=== PATIENT | male | born 1960 | race Caucasian/White ===

== ENCOUNTER 2022-04-10 10:30 | Emergency (ER) | payer OTHER ==
--- OUTSIDE RECORDS SUMMARY | 2022-04-10 10:42 | XMS REPORT | Continuity of Care Document ---
:[address] [facility] t Address [address] [place] [address] Care Team Providers Name Role Phone OPAL EGAN Primary Care Physician Unavailable Opal Egan Attending Clinician Unavailable GABRIEL ANNE Attending Clinician Unavailable SUZANNA BAZZI Attending Clinician Unavailable SCOTTIE TOLBERT Attending Clinician Unavailable MAGUI DURAND Attending Clinician Unavailable Magui Durand DO Attending Clinician Christiano Rai NP Attending Clinician [address] [place] [address] Ct Room Attending Clinician Unavailable CHRISTIANO RAI Attending Clinician Unavailable DR CIARA CARTER Attending Clinician Unavailable Rigoberto Arredondo MA Attending Clinician Unavailable Doctor Unassigned, [place] Attending Clinician Unavailable Gabriel Anne MD Attending Clinician Lakeisha Valenzuela Attending Clinician TIBURCIO DAILEY Attending Clinician Unavailable Tiburcio Dailey MD Attending Clinician Christie Castaneda Attending Clinician Pcp, Patient Does Not Have A Attending Clinician [phone] Stewart BURGOS, Lucio Hyde Attending Clinician Tima MENDOZA, Bella Attending Clinician Unavailable Leo DUVALP, Chaparro F Attending Clinician Jean Claude OBIEE OBIA SOLUTION ARCHITECT, Monica G Attending Clinician Evaristo Norton MD Attending Clinician Matthew Raya MD Attending Clinician MATTHEW RAYA Attending Clinician Unavailable Max BURGOS, Andrew Attending Clinician Augustin BURGOS, Rogelio Gómez Attending Clinician SANDEEP LOPEZ JR Attending Clinician Unavailable Sandeep Lopez MD Attending Clinician DR DON SYED Attending Clinician Unavailable GABRIEL ANNE Admitting Clinician Unavailable SUZANNA BAZZI Admitting Clinician Unavailable SCOTTIE TOLBERT Admitting Clinician Unavailable DR CIARA CARTER Admitting Clinician Unavailable Matthew Raya MD Admitting Clinician MATTHEW RAYA Admitting Clinician Unavailable SANDEEP LOPEZ JR Admitting Clinician Unavailable Sandeep Lopez MD Admitting Clinician DR DON SYED Admitting Clinician Unavailable Payers Payer Name Policy Type Policy Number Effective Date Expiration Date S ource [facility] [id number] 2020 FROM [place] 00:00:00 [facility] [id number] 2020 [place] 00:00:00 [facility] [id number] 2021 HEALTHCARE 00:00:00 [place] [id number] 2021 [facility] 00:00:00 [facility] - C HI O [facility] [id number] 2019 2019 00:00:00 00:00:00 Problems Condition Condition Condition Status Onset Resolution Last Treating Co mments Source Name Details Category Date Date Treatment Clinician Date 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 00:00: Medica l s/p TEVAR s/p TEVAR 00 Cent er with 34x20 with 34x20 GoreTAG, GoreTAG, 34x15 34x15 GoreTAG GoreTAG via R HEAD TURBINE OPERATOR via R HEAD TURBINE OPERATOR 22Fr 22Fr sheath sheath Hypertensi Hypertensi Disease Active 2020-[address] [facility] 0 [facility] HCV Liver HCV Liver Disease Active 2020-[address] [facility] cirrhosis cirrhosis 0- [facility] 00:[facility]: [facility] Center Ex-smoker Ex-smoker Disease Active 2020-[address] [facility] year 35 year 0- [facility] smoking hx smoking hx 00:00: Me dical 00 Center Nephrolith Nephrolith Disease Active 2020-[address] iasis iasis 0- [facility] Aortic Aortic Disease Active [facility] dissection dissection 5- [facility] 00:00: Center Ureteral Ureteral Disease Active Unive rs stone with stone with 2-17 it y of hydronephr hydronephr 00:[place]: [place] osis osis 00 Medical Branch Obesity Obesity Disease Active Univers (BMI (BMI 2-17 ity of 30-39.9) 30-39.9) 00:00: [place] [facility] Ureteral Ureteral Disease Active Unive rs stone with stone with 2-17 it y of hydronephr hydronephr 00:00: [place] osis osis Medical Branch Aortic Aortic Disease Active Univers dissection dissection 4-18 it y of distal to distal to 00:[place] 00 Medical subclavian subclavian Br anch Abnormal Abnormal Disease Active Unive rs serum serum 4-18 ity of level of level of 00:00: [place] lipase lipase 00 Medical Branch Chest pain Chest pain Disease Active 2019-0 U jhoners 4-17 ity of 00:00: [place] 00 Medical Branch Uncontroll Uncontroll Disease Active 2019-0 U gayatri ed ed 4-17 ity of hypertensi hypertensi 00:00: [place] on on Medical [place] Dyslipidem Dyslipidem Disease Active 2019-0 U jhoners ia ia 4-17 ity of 00:00: [place] 00 Medical Branch LEVINE LEVINE Disease Active Univers (dyspnea (dyspnea 4-17 ity of on on 00:00: [place] exertion) exertion) 00 [facility] fox Branch Acute Acute Disease Active Univers dissection dissection 4-02 it y of of of 00:00: [place] thoracic thoracic 00 Medica l aorta aorta Branch [id number] Mixed Problem Common hyperlipid Spirit emia - [facility] [id number] Hypertensi Problem Com mon ve heart Spirit disease - [facility] without heart [facility] failure Medical Center [id number] Chronic Problem Commo n hepatitis Spirit C without - [facility] hepatic [facility] [id number] Thrombocyt Problem Co mmon openia Spirit - [facility] Allergies, Adverse Reactions, Alerts Allergy Allergy Status Severity Reaction(s) Onset Inactive Treating Comm ents Source Name Type Date Date Clinician No Known DA Active Unknown [place] Allergie - Medical 00:00: [place] 00 NO KNOWN Allergy [facility] Drug Active Univers ALLERGIE Class ity of S [facility] Family History Family Member Diagnosis Comments Start Date Stop Date Source Natural brother Hypertension [facility] Natural father Prostate cancer [facility] Natural mother Hypertension [facility] Social History Social Habit Start Date Stop Date Quantity Comments Source History SDOH [facility] Alcohol Std Drinks Medica l Center History SDOH [facility] Alcohol Binge Medical [address] History SDOH [facility] Alcohol Comment Medical C enter History of Tobacco Current Smoker Co mmon Spirit - Use [facility] Exposure to 2022-03-27 2022-04-06 Not sure University of SARS-CoV-2 (event) 00:00:00 11:56:00 [facility] Alcohol intake 2021-03-17 2021-03-[address] [facility] 00:00:00 00:00:00 non-drinker Medical Eris acuna (finding) Tobacco Comment 2021-01-31 2021-01-31 [facility] 00:[facility] 00:00:00 that he is ready Medical Center to quit smoking .Down to 1-3 cig/day Cigarettes smoked 2020-11-29 2020-11-[address] [facility] current (pack per 00:00:00 00:00:00 Medical Center day) - Reported Tobacco use and 2020-11-29 2020-11-[address] [facility] kes exposure 00:00:00 00:00:00 Medical Center History [facility] 2020-10-16 2020-10-[address] [facility] Alcohol Frequency 00:00:00 00:00:00 [facility] Center History [facility] Food 2020-08-04 2020-08-04 1 Univers ity of Worry 00:00:00 00:00:00 [facility] History SDID Food 2020-08-04 2020-08-04 1 Univers ity of Scarcity 00:00:00 00:00:00 [facility] History [facility] 2020-08-04 2020-08-04 2 University o f Transport Med 00:00:00 00:00:00 [place] Medic al Branch History [facility] 2020-08-04 2020-08-04 2 University o f Transport Non-Med 00:00:00 00:00:00 [facility] Sex Assigned At [birth year] NINFA Odell kes 00:00:00 00:00:00 [facility] Center Smoking Status Start Date Stop Date Source Unknown if ever smoked [facility] y [place] [facility] Former Smoker 2021-11-14 00:00:00 2021-11-14 00:00:00 Common S pirit - [facility] Medical Ce nter Current every day 2020-11-29 00:00:00 [facility] smoker Center Medications Ordered Filled Start Stop Current Ordering Indication Dosage Frequency Signature Comments Components Source Medication Medication Date Date Medication? Clinician (SIG) Name Name tarah 2021-06- No 10mL 10 mL, Uni vers ifenesin 0-21 10-21 Oral, ity of (ROBITUSSIN 17:15: 17:18 ONCE, 1 [place] AC) 10-100 00 :00 dose, On Medic al mg/5 mL Fri Branch oral 04/06/22 solution 10 at 1215, mL ERIS codeine-gua 2021-06- Yes [id number] 5mL Take 5 mL Univers ifenesin 0-21 10-29 by mouth ity of 10-100 mg/5 00:00: 04:59 every 6 [place] mL oral 00 :00 (six) Medical solution hours as Branch needed for Cough for up to 7 days. Indication s: acute pain Clobetasol Clobetasol 2021- No 1{appli BID Clobetasol Propionate Propionate 02-26 cation} Propionate 0.05 % 0.05 % 00:00: 00:00 0.05 % 00 :00 aspirin 81 2020-06 Yes 81mg QD Take [address] MG EC 0-04 by mouth [facility] tablet 16:13: daily. Medical 03 [place] multivitami 2020-06 Yes 1{tbl} QD Take [address] n per 0-04 tablet by [facility] tablet 16:13: mouth Medical 03 daily. [place] tamsulosin 2020- No [id number] .4mg Take 1 Univers 0.4 mg 24 09-15 capsule by ity of hr capsule 00:00: 04:59 mouth [place] 00 :00 daily for Medical 30 days. [place] tamsulosin 2020- No [id number] .4mg Take 1 Univers 0.4 mg 24 09-15 capsule by ity of hr capsule 00:00: 04:59 mouth [place] 00 :00 daily for Medical 30 days. [place] tamsulosin 2020- No [id number] .4mg Take 1 Univers 0.4 mg 24 09-15 capsule by ity of hr capsule 00:00: 04:59 mouth [place] 00 :00 daily for Medical 30 days. [place] tamsulosin 2020- No [id number] .4mg Take 1 Univers 0.4 mg 24 09-15 capsule by ity of hr capsule 00:00: 04:59 mouth [place] 00 :00 daily for Medical 30 days. [place] tamsulosin 2020- No [id number] .4mg Take 1 Univers 0.4 mg 24 09-15 capsule by ity of hr capsule 00:00: 04:59 mouth [place] 00 :00 daily for Medical 30 days. [place] tamsulosin 2020- No [id number] .4mg Take 1 Univers 0.4 mg 24 09-15 capsule by ity of hr capsule 00:00: 04:59 mouth [place] 00 :00 daily for Medical 30 days. Branch tamsulosin No [id number] .4mg Take 1 Univers 0.4 mg 24 09-15 capsule by ity of hr capsule 00:00: 04:59 mouth [place] 00 :00 daily for Medical 30 days. [place] oxybutynin No [id number] 5mg Take 1 Univers XL 5 mg 24 09-1516 tablet by ity of hr tablet 00:00: 04:59 mouth [place] 00 :00 daily for Medical 14 days. [place] oxybutynin No [id number] 5mg Take 1 Univers XL 5 mg 24 09-1516 tablet by ity of hr tablet 00:00: 04:59 mouth [place] 00 :00 daily for Medical 14 days. [place] oxybutynin No [id number] 5mg Take 1 Univers XL 5 mg 24 09-15 tablet by ity of hr tablet 00:00: 04:59 mouth [place] 00 :00 daily for Medical 14 days. [place] oxybutynin No [id number] 5mg Take 1 Univers XL 5 mg 24 09-1516 tablet by ity of hr tablet 00:00: 04:59 mouth [place] 00 :00 daily for Medical 14 days. [place] oxybutynin No [id number] 5mg Take 1 Univers XL 5 mg 24 09-1516 tablet by ity of hr tablet 00:00: 04:59 mouth [place] 00 :00 daily for Medical 14 days. [place] oxybutynin No [id number] 5mg Take 1 Univers XL 5 mg 09-1516 tablet by ity of hr tablet 00:00: 04:59 mouth [place] 00 :00 daily for Medical 14 days. [place] ketorolac No 30mg 30 mg, Unive rs (TORADOL) 09-07 Slow IV ity of injection 20:30: 19:58 Push, [place] 30 mg 00 :00 ONCE, 1 Medical dose, Sat [place] 09/07/20 at 1530, ERIS
Fa culty member approving Restricted medication : EMERGENCY ROOM, NaCl 0.9% 2021-0 2021- No 1000mL at 999 Uni vers (NS) bolus 3-24 03-24 mL/hr, ity of infusion 19:30: 21:41 1,000 mL, [place] as 1,000 mL 00 :00 IV Medical Infusion, Branch ONCE, 1 dose, Sat09/07/20 at 1430, ERIS labetaloL 2020-0 Yes [id number] 200mg Take 1 Univers 200 mg 3-24 tablet by ity of tablet 00:00: mouth [place] 00 every 12 Medical (twelve) Branch hours. labetaloL 2020-0 Yes [id number] 200mg Take 1 Univers 200 mg 3-24 tablet by ity of tablet 00:00: mouth [place] 00 every 12 Medical (twelve) Branch hours. labetaloL 2020-0 Yes [id number] 200mg Take 1 Univers 200 mg 3-24 tablet by ity of tablet 00:00: mouth [place] 00 every 12 Medical (twelve) Branch hours. labetaloL 2020-0 Yes [id number] 200mg Take 1 Univers 200 mg 3-24 tablet by ity of tablet 00:00: mouth [place] 00 every 12 Medical (twelve) Branch hours. labetaloL 2020-0 Yes [id number] 200mg Take 1 Univers 200 mg 3-24 tablet by ity of tablet 00:00: mouth [place] 00 every 12 Medical (twelve) Branch hours. labetaloL 2020-0 Yes [id number] 200mg Take 1 Univers 200 mg 3-24 tablet by ity of tablet 00:00: mouth [place] 00 every 12 Medical (twelve) Branch hours. labetaloL 2020-0 Yes [id number] 200mg Take 1 Univers 200 mg 3-24 tablet by ity of tablet 00:00: mouth [place] 00 every 12 Medical (twelve) Branch hours. labetaloL 2020-0 Yes [id number] 200mg Take 1 Univers 200 mg 3-24 tablet by ity of tablet 00:00: mouth [place] 00 every 12 Medical (twelve) Branch hours. labetaloL 2020-0 Yes [id number] 200mg Take 1 Univers 200 mg 3-24 tablet by ity of tablet 00:00: mouth [place] 00 every 12 Medical (twelve) Branch hours. acetaminoph 2020-0 2020- No [id number] 1{tbl} Take 1 U nivers en-codeine 3-24 04- tablet by ity of 300-30 mg 00:00: 04:59 mouth [place] tablet 00 :00 every 6 Medical (six) Branch hours as needed for Pain (scale 7-10) for up to 7 days. Indication s: acute pain ketorolac 2021-0 2021- No [id number] 10mg Take 1 Univers 10 mg 3-24 03-30 tablet by ity of tablet 00:00: 04:59 mouth [place] 00 :00 every 6 Medical (six) Branch hours as needed for Pain (scale 4-6) for up to 5 days. oxybutynin 2021-0 Yes 5mg Take 1 Unive rs chloride 5 3-09 tablet by ity of mg tablet 00:00: mouth (three) Medical times Branch daily as needed for Bladder spasms. oxybutynin 2021-0 Yes 5mg Take 1 Unive rs chloride 5 3-09 tablet by ity of mg tablet 00:00: mouth (three) Medical times Branch daily as needed for Bladder spasms. oxybutynin 2021-0 Yes 5mg Take 1 Unive rs chloride 5 3-09 tablet by ity of mg tablet 00:00: mouth (three) Medical times Branch daily as needed for Bladder spasms. oxybutynin 2021-0 Yes 5mg Take 1 Unive rs chloride 5 3-09 tablet by ity of mg tablet 00:00: mouth (three) Medical times Branch daily as needed for Bladder spasms. oxybutynin 2021-0 Yes 5mg Take 1 Unive rs chloride 5 3-09 tablet by ity of mg tablet 00:00: mouth (three) Medical times Branch daily as needed for Bladder spasms. oxybutynin 2021-0 Yes 5mg Take 1 Unive rs chloride 5 3-09 tablet by ity of mg tablet 00:00: mouth (three) Medical times Branch daily as needed for Bladder spasms. oxybutynin 2021-0 Yes 5mg Take 1 Unive rs chloride 5 3-09 tablet by ity of mg tablet 00:00: mouth (three) Medical times Branch daily as needed for Bladder spasms. oxybutynin 2021-0 Yes 5mg Take 1 Unive rs chloride 5 3-09 tablet by ity of mg tablet 00:00: mouth (three) Medical times Branch daily as needed for Bladder spasms. oxybutynin 2021-0 Yes 5mg Take 1 Unive rs chloride 5 3-09 tablet by ity of mg tablet 00:00: mouth 3 (three) Medical times Branch daily as needed for Bladder spasms. oxybutynin 2021-0 Yes 5mg Take 1 Unive rs chloride 5 3-09 tablet by ity of mg tablet 00:00: mouth 3 (three) Medical times Branch daily as needed for Bladder spasms. oxybutynin 2021-0 Yes 5mg Take 1 Unive rs chloride 5 3-09 tablet by ity of mg tablet 00:00: mouth 3 (three) Medical times Branch daily as needed for Bladder spasms. tamsulosin 2020-0 Yes .4mg QD Take 0.[address] ([place]) 2-21 mg by [facility] 0.4 mg Cap 00:00: mouth Medica l 24 hr 00 daily. Center capsule tamsulosin 2020-0 Yes [id number] .4mg Take 1 Univers 0.4 mg 24 2-21 capsule by ity of hr capsule 00:00: mouth [place] 00 daily. Medical Branch tamsulosin 2020-0 Yes [id number] .4mg Take 1 Univers 0.4 mg 24 2-21 capsule by ity of hr capsule 00:00: mouth [place] 00 daily. Medical Branch tamsulosin 2020-0 Yes [id number] .4mg Take 1 Univers 0.4 mg 24 2-21 capsule by ity of hr capsule 00:00: mouth [place] 00 daily. Medical Branch tamsulosin 2020-0 Yes [id number] .4mg Take 1 Univers 0.4 mg 24 2-21 capsule by ity of hr capsule 00:00: mouth [place] 00 daily. Medical Branch tamsulosin 2020-0 Yes [id number] .4mg Take 1 Univers 0.4 mg 24 2-21 capsule by ity of hr capsule 00:00: mouth [place] 00 daily. Medical Branch tamsulosin 2020-0 Yes [id number] .4mg Take 1 Univers 0.4 mg 24 2-21 capsule by ity of hr capsule 00:00: mouth [place] 00 daily. Medical Branch tamsulosin 2020-0 Yes [id number] .4mg Take 1 Univers 0.4 mg 24 2-21 capsule by ity of hr capsule 00:00: mouth [place] 00 daily. Medical Branch tamsulosin 2020-0 Yes [id number] .4mg Take 1 Univers 0.4 mg 24 2-21 capsule by ity of hr capsule 00:00: mouth [place] 00 daily. Medical Branch tamsulosin 2020-0 Yes [id number] .4mg Take 1 Univers 0.4 mg 24 2-21 capsule by ity of hr capsule 00:00: mouth [place] 00 daily. Medical Branch tamsulosin 2020-0 Yes [id number] .4mg Take 1 Univers 0.4 mg 24 2-21 capsule by ity of hr capsule 00:00: mouth [place] 00 daily. Medical Branch tamsulosin 2020-0 Yes [id number] .4mg Take 1 Univers 0.4 mg 24 2-21 capsule by ity of hr capsule 00:00: mouth [place] 00 daily. Medical Branch tamsulosin 2020-0 Yes [id number] .4mg Take 1 U nivers 0.4 mg 24 2-21 capsule by ity of hr capsule 00:00: mouth [place] 00 daily. Medical Branch tamsulosin 2020-0 Yes [id number] .4mg Take 1 U nivers 0.4 mg 24 2-20 capsule by ity of hr capsule 00:00: mouth at [place] as 00 bedtime. Medical Branch tamsulosin 2020-0 Yes [id number] .4mg Take 1 U nivers 0.4 mg 24 2-20 capsule by ity of hr capsule 00:00: mouth at [place] as 00 bedtime. Medical Branch tamsulosin 2020-0 Yes [id number] .4mg Take 1 U nivers 0.4 mg 24 2-20 capsule by ity of hr capsule 00:00: mouth at [place] as 00 bedtime. Medical Branch tamsulosin 2020-0 Yes [id number] .4mg Take 1 U nivers 0.4 mg 24 2-20 capsule by ity of hr capsule 00:00: mouth at [place] 00 bedtime. Medical Branch acetaminoph 2020-2021- No [id number] 650mg Take 2 Univers en 325 mg 2-20 02-21 tablets by ity of tablet 00:00: 05:59 mouth [place] 00 :00 every 6 Medical (six) Branch hours as needed for Pain (scale 1-3). acetaminoph 2021- No [id number] 650mg Take 2 Univers en 325 mg 2-20 02-21 tablets by ity of tablet 00:00: 05:59 mouth [place] 00 :00 every 6 Medical (six) Branch hours as needed for Pain (scale 1-3). acetaminoph 2021- No [id number] 650mg Take 2 Univers en 325 mg 2-20 02-21 tablets by ity of tablet 00:00: 05:59 mouth [place] 00 :00 every 6 Medical (six) Branch hours as needed for Pain (scale 1-3). acetaminoph 2021- No [id number] 650mg Take 2 Univers en 325 mg 2-20 02-21 tablets by ity of tablet 00:00: 05:59 mouth [place] 00 :00 every 6 Medical (six) Branch hours as needed for Pain (scale 1-3). acetaminoph 2021- No [id number] 650mg Take 2 Univers en 325 mg 2-20 02-21 tablets by ity of tablet 00:00: 05:59 mouth [place] 00 :00 every 6 Medical (six) Branch hours as needed for Pain (scale 1-3). acetaminoph 2021- No [id number] 650mg Take 2 Univers en 325 mg 2-20 02-21 tablets by ity of tablet 00:00: 05:59 mouth [place] 00 :00 every 6 Medical (six) Branch hours as needed for Pain (scale 1-3). acetaminoph 2021- No [id number] 650mg Take 2 Univers en 325 mg 2-20 02-21 tablets by ity of tablet 00:00: 05:59 mouth [place] 00 :00 every 6 Medical (six) Branch hours as needed for Pain (scale 1-3). acetaminoph 2021- No [id number] 650mg Take 2 Univers en 325 mg 2-20 02-21 tablets by ity of tablet 00:00: 05:59 mouth [place] 00 :00 every 6 Medical (six) Branch hours as needed for Pain (scale 1-3). acetaminoph 2021- No [id number] 650mg Take 2 Univers en 325 mg 2-20 02-21 tablets by ity of tablet 00:00: 05:59 mouth [place] 00 :00 every 6 Medical (six) Branch hours as needed for Pain (scale 1-3). acetaminoph 2021- No [id number] 650mg Take 2 Univers en 325 mg 2-20 -21 tablets by ity of tablet 00:00: 05:59 mouth [place] 00 :00 every 6 Medical (six) Branch hours as needed for Pain (scale 1-3). acetaminoph 2021- No [id number] 650mg Take 2 Univers en 325 mg 2-20 -21 tablets by ity of tablet 00:00: 05:59 mouth [place] 00 :00 every 6 Medical (six) Branch hours as needed for Pain (scale 1-3). tamsulosin 2020- No [id number] .4mg Take 1 Univers 0.4 mg 24 2-09-15 capsule by ity of hr capsule 00:00: 00:00 [place] 00 :00 bedtime. Medical Branch tamsulosin 2020- No [id number] .4mg Take 1 Univers 0.4 mg 24 -09-15 capsule by ity of hr capsule 00:00: 00:00 mouth [place] 00 :00 bedtime. Medical Branch losartan 50 0 Yes [id number] 50mg Take 1 Univers mg tablet 2-17 tablet by ity o f 00:00: mouth (two) Medical times Branch daily. losartan 50 0 Yes [id number] 50mg Take 1 Univers mg tablet 2-17 tablet by ity o f 00:00: mouth (two) Medical times Branch daily. losartan 50 0 Yes [id number] 50mg Take 1 Univers mg tablet 2-17 tablet by ity o f 00:00: mouth (two) Medical times Branch daily. losartan 50 2020-0 Yes [id number] 50mg Take 1 Univers mg tablet 2-17 tablet by ity o f 00:00: mouth (two) Medical times Branch daily. losartan 50 2020-0 Yes [id number] 50mg Take 1 Univers mg tablet 2-17 tablet by ity o f 00:00: mouth 2 (two) Medical times Branch daily. losartan 50 2020-0 Yes [id number] 50mg Take 1 Univers mg tablet 2-17 tablet by ity o f 00:00: mouth 2 (two) Medical times Branch daily. losartan 50 0 Yes [id number] 50mg Take 1 Univers mg tablet 2-17 tablet by ity o f 00:00: mouth 2 (two) Medical times Branch daily. losartan 50 2020-0 Yes [id number] 50mg Take 1 Univers mg tablet 2-17 tablet by ity o f 00:00: mouth 2 (two) Medical times Branch daily. losartan 50 0 Yes [id number] 50mg Take 1 Univers mg tablet 2-17 tablet by ity o f 00:00: mouth 2 (two) Medical times Branch daily. losartan 50 0 Yes [id number] 50mg Take 1 Univers mg tablet 2-17 tablet by ity o f 00:00: mouth 2 (two) Medical times Branch daily. losartan 50 0 Yes [id number] 50mg Take 1 Univers mg tablet 2-17 tablet by ity o f 00:00: mouth 2 (two) Medical times Branch daily. losartan 50 0 Yes [id number] 50mg Take 1 Univers mg tablet 2-17 tablet by ity o f 00:00: mouth 2 (two) Medical times Branch daily. losartan 50 0 Yes [id number] 50mg Take 1 Univers mg tablet 2-17 tablet by ity o f 00:00: mouth 2 (two) Medical times Branch daily. FENTanyl PF 2019-06- No 50ug 50 mcg, Un sunil (SUBLIMAZE 07-19 Slow IV ity o f (PF)) 13:00: 12:53 Push, [place] injection 00 :00 ONCE, 1 Medical 50 mcg dose, Wed Branch 05/18/20 at 0700, STAT ondansetron 2019-06 2020- No 4mg 4 mg, Slow Univers (ZOFRAN 07-19 IV Push, ity of (PF)) 12:00: 11:05 ONCE, 1 [place] injection 4 00 :00 dose, Wed Med ical mg 05/18/20 at Branch 0600, ERIS ketorolac 2019-06- No 30mg 30 mg, Unive rs (TORADOL) 07-19 Slow IV ity of injection 12:00: 11:05 Push, [place] 30 mg 00 :00 ONCE, 1 Medical dose, Wed Branch 05/18/20 at 0600, Routine
space studies faculty member approving Restricted medication : LUCIO WILLIAM ketorolac 2019-06 Yes [id number] 10mg Take 1 Un sunil 10 mg 2-02 tablet by ity of tablet 00:00: mouth [place] 00 every 6 Medical (six) Branch hours as needed for Pain (scale 7-10). tamsulosin 2019-06 Yes [id number] .4mg Take 1 U nivers 0.4 mg 24 2-02 capsule by ity of hr capsule 00:00: mouth at [place] 00 bedtime. Medical Branch traMADoL 2019-06 Yes [id number] 50mg Take 1 Univers (ULTRAM) 50 2-02 tablet by ity of mg tablet 00:00: mouth [place] 00 every 6 Medical (six) Branch hours as needed for Pain (scale 7-10). Indication s: acute pain ondansetron 2019-06 Yes [id number] 4mg Take 1 Univers (ZOFRAN) 4 2-02 tablet by ity of mg tablet 00:00: mouth [place] 00 every 8 Medical (eight) Branch hours as needed for Nausea and Vomiting (N/V). ketorolac 2019-06 Yes [id number] 10mg Take 1 Un sunil 10 mg 2-02 tablet by ity of tablet 00:00: mouth [place] 00 every 6 Medical (six) Branch hours as needed for Pain (scale 7-10). tamsulosin 2019-06 Yes [id number] .4mg Take 1 U nivers 0.4 mg 24 2-02 capsule by ity of hr capsule 00:00: mouth at [place] 00 bedtime. Medical Branch traMADoL 2019-06 Yes [id number] 50mg Take 1 Univers (ULTRAM) 50 2-02 tablet by ity of mg tablet 00:00: mouth [place] 00 every 6 Medical (six) Branch hours as needed for Pain (scale 7-10). Indication s: acute pain ondansetron 2019-06 Yes [id number] 4mg Take 1 Univers (ZOFRAN) 4 2-02 tablet by ity of mg tablet 00:00: mouth [place] 00 every 8 Medical (eight) Branch hours as needed for Nausea and Vomiting (N/V). labetaloL 2019-06 Yes [id number] 200mg Take 1 Univers 200 mg 1-19 tablet by ity of tablet 00:00: mouth [place] 00 every 12 Medical (twelve) Branch hours. labetaloL 2019-06 Yes [id number] 200mg Take 1 [facility] 200 mg 1-19 tablet by ity of tablet 00:00: mouth [place] 00 every 12 Medical (twelve) Branch hours. labetaloL 2019-06 Yes [id number] 200mg Take 1 [facility] 200 mg 1-19 tablet by ity of tablet 00:00: mouth [place] 00 every 12 Medical (twelve) Branch hours. labetaloL 2019-06 Yes [id number] 200mg Take 1 [facility] 200 mg 1-19 tablet by ity of tablet 00:00: mouth [place] 00 every 12 Medical (twelve) Branch hours. labetaloL 2019-06 Yes [id number] 200mg Take 1 [facility] 200 mg 1-19 tablet by ity of tablet 00:00: mouth [place] 00 every 12 Medical (twelve) Branch hours. labetaloL 2019-06- No [id number] 200mg Take 1 [facility] 200 mg 1-19 03-24 tablet by ity of tablet 00:00: 00:00 mouth [place] 00 :00 every 12 Medical (twelve) Branch hours. labetaloL 2019-06- No [id number] 200mg Take 1 [facility] 200 mg 1-19 03-24 tablet by ity of tablet 00:00: 00:00 mouth [place] 00 :00 every 12 Medical (twelve) Branch hours. gabapentin 2019-06- No 600mg 600 mg, [facility] (NEURONTIN) 07-02 Oral, ity of tablet 600 18:45: 18:45 ONCE, 1 [place] mg 00 :00 dose, [facility] 05/02/20 Branch at 1245, Routine ibuprofen 2019-06- No 800mg 800 mg, Uni vers (IBU) 07-02 Oral, ity of tablet 800 18:30: 17:43 ONCE, 1 [place] mg 00 :00 dose, [facility] 05/02/20 Branch at 1230, ERIS HYDROcodone 2019-06- No 1{tbl} 1 tablet, [facility] -acetaminop 07-02 Oral, ity of hen (NORCO) 18:30: 17:43 ONCE, 1 [place] 10-325 mg 00 :00 dose, [facility] Medic al tablet 1 05/02/20 Branch tablet at 1230, Routine ibuprofen 2019-06 Yes [id number] 800mg Take 1 [facility] 800 mg 1-16 tablet by ity of tablet 00:00: mouth [place] 00 every 6 Medical (six) Branch hours as needed for Pain (scale 4-6). acetaminoph 2019-06 Yes [id number] 1{tbl} Take 1 [facility] en-codeine 1-16 tablet by ity of 300-30 mg 00:00: mouth [place] tablet 00 every 4 Medical (four) Branch hours as needed for Pain (scale 7-10). Indication s: acute pain ibuprofen 2019-06 Yes [id number] 800mg Take 1 [facility] 800 mg 1-16 tablet by ity of tablet 00:00: mouth [place] 00 every 6 Medical (six) Branch hours as needed for Pain (scale 4-6). acetaminoph 2019-06 Yes [id number] 1{tbl} Take 1 [facility] en-codeine 1-16 tablet by ity of 300-30 mg 00:00: mouth [place] tablet 00 every 4 Medical (four) Branch hours as needed for Pain (scale 7-10). Indication s: acute pain ibuprofen 2019-06 Yes [id number] 800mg Take 1 [facility] 800 mg 1-16 tablet by ity of tablet 00:00: mouth [place] 00 every 6 Medical (six) Branch hours as needed for Pain (scale 4-6). acetaminoph 2019-06 Yes [id number] 1{tbl} Take 1 [facility] en-codeine 1-16 tablet by ity of 300-30 mg 00:00: mouth [place] tablet 00 every 4 Medical (four) Branch hours as needed for Pain (scale 7-10). Indication s: acute pain ibuprofen 2019-06 Yes [id number] 800mg Take 1 [facility] 800 mg 1-16 tablet by ity of tablet 00:00: mouth [place] 00 every 6 Medical (six) Branch hours as needed for Pain (scale 4-6). acetaminoph 2019-06 Yes [id number] 1{tbl} Take 1 [facility] en-codeine 1-16 tablet by ity of 300-30 mg 00:00: mouth [place] tablet 00 every 4 Medical (four) Branch hours as needed for Pain (scale 7-10). Indication s: acute pain ibuprofen 2019-06 Yes [id number] 800mg Take 1 [facility] 800 mg 1-16 tablet by ity of tablet 00:00: mouth [place] 00 every 6 Medical (six) Branch hours as needed for Pain (scale 4-6). acetaminoph 2019- Yes [id number] 1{tbl} Take 1 [facility] en-codeine 1-16 tablet by ity of 300-30 mg 00:00: mouth [place] tablet 00 every 4 Medical (four) Branch hours as needed for Pain (scale 7-10). Indication s: acute pain acyclovir 2019-06 2020- No [id number] 800mg Take 1 [facility] 800 mg 1-16 11-24 tablet by ity of tablet 00:00: 05:59 mouth 5 [place] 00 :00 (five) Medical times Branch daily for 7 days. acyclovir 2019-06 2020- No [id number] 800mg Take 1 [facility] 800 mg 1-16 11-24 tablet by ity of tablet 00:00: 05:59 mouth 5 [place] 00 :00 (five) Medical times Branch daily for 7 days. acyclovir 2019-06- No [id number] 800mg Take 1 [facility] 800 mg 1-16 11-24 tablet by ity of tablet 00:00: 05:59 mouth 5 [place] 00 :00 (five) Medical times Branch daily for 7 days. losartan 50 2020-0 Yes [id number] 50mg Take 1 [facility] mg tablet 9-02 tablet by ity o f 00:00: mouth 2 (two) Medical times Branch daily. losartan 50 2020-0 Yes [id number] 50mg Take 1 [facility] mg tablet 9-02 tablet by ity o f 00:00: mouth 2 (two) Medical times Branch daily. losartan 50 2020-0 Yes [id number] 50mg Take 1 [facility] mg tablet 9-02 tablet by ity o f 00:00: mouth 2 (two) Medical times Branch daily. losartan 50 2020-0 Yes [id number] 50mg Take 1 [facility] mg tablet 9-02 tablet by ity o f 00:00: mouth 2 00 (two) Medical times Branch daily. losartan 50 2020-0 Yes [id number] 50mg Take 1 [facility] mg tablet 9-02 tablet by ity o f 00:00: mouth 2 (two) Medical times Branch daily. losartan 50 2020-0 Yes [id number] 50mg Take 1 [facility] mg tablet 9-02 tablet by ity o f 00:00: mouth 2 (two) Medical times Branch daily. losartan 50 2020-0 Yes [id number] 50mg Take 1 [facility] mg tablet - tablet by ity o f 00:00: mouth 2 [place] 00 (two) Medical times Branch daily. losartan 50 2020-0 Yes [id number] 50mg Take 1 [facility] mg tablet 9- tablet by ity o f 00:00: mouth 2 [place] 00 (two) Medical times Branch daily. losartan 50 2020-0 2020- No [id number] 50mg Take 1 [facility] mg tablet 02-16 tablet by ity of 00:00: 00:00 mouth 2 [place] 00 :00 (two) Medical times Branch daily. losartan 50 2020-0 2020- No [id number] 50mg Take 1 [facility] mg tablet 02-16 tablet by ity of 00:00: 00:00 mouth 2 [place] 00 :00 (two) Medical times Branch daily. labetaloL 2020-0 Yes [id number] 200mg Take 1 [facility] 200 mg 8-24 tablet by ity of tablet 00:00: mouth [place] 00 every 12 Medical (twelve) Branch hours. labetaloL 2020-0 Yes [id number] 200mg Take 1 [facility] 200 mg 8-24 tablet by ity of tablet 00:00: mouth [place] 00 every 12 Medical (twelve) Branch hours. labetaloL 2020-0 Yes [id number] 200mg Take 1 [facility] 200 mg 8-24 tablet by ity of tablet 00:00: mouth [place] 00 every 12 Medical (twelve) Branch hours. labetaloL 2020-0 Yes [id number] 200mg Take 1 [facility] 200 mg 8-24 tablet by ity of tablet 00:00: mouth [place] 00 every 12 Medical (twelve) Branch hours. labetaloL 2020-0 Yes [id number] 200mg Take 1 [facility] 200 mg 8-24 tablet by ity of tablet 00:00: mouth [place] 00 every 12 Medical (twelve) Branch hours. labetaloL 2020-0 Yes [id number] 200mg Take 1 [facility] 200 mg 8-24 tablet by ity of tablet 00:00: mouth [place] 00 every 12 Medical (twelve) Branch hours. labetaloL 2020-0 Yes [id number] 200mg Take 1 [facility] 200 mg 8-24 tablet by ity of tablet 00:00: mouth [place] 00 every 12 Medical (twelve) Branch hours. labetaloL 2020-0 Yes [id number] 200mg Take 1 [facility] 200 mg 8-24 tablet by ity of tablet 00:00: mouth [place] 00 every 12 Medical (twelve) Branch hours. labetaloL 2019-0 2020- No [id number] 200mg Take 1 [facility] 200 mg 8-24 11-19 tablet by ity of tablet 00:00: 00:00 mouth [place] 00 :00 every 12 Medical (twelve) Branch hours. labetaloL 2020-0 2020- No [id number] 200mg Take 1 [facility] 200 mg 8-24 11-19 tablet by ity of tablet 00:00: 00:00 mouth [place] 00 :00 every 12 Medical (twelve) Branch hours. ketorolac 2019- 2020- No 30mg 30 mg, [facility] rs (TORADOL) 12-28 Slow IV ity of injection 21:30: 22:23 Push, [place] 30 mg 00 :00 ONCE, 1 Medical dose, [facility] 12/29/19 at 1630, Routine
space studies faculty member approving Restricted medication : MONICA SCOTT losartan 25 2019-0 Yes [id number] 25mg Take 1 [facility] mg tablet 5-05 tablet by ity o f 00:00: mouth [place] 00 daily. Medical Branch losartan 25 2019-0 Yes [id number] 25mg Take 1 [facility] mg tablet 5-05 tablet by ity o f 00:00: mouth [place] 00 daily. Medical Branch losartan 25 2020-0 Yes [id number] 25mg Take 1 [facility] mg tablet 5-05 tablet by ity o f 00:00: mouth [place] 00 daily. Medical Branch losartan 25 2020-0 Yes [id number] 25mg Take 1 [facility] mg tablet 5-05 tablet by ity o f 00:00: mouth [place] 00 daily. Medical Branch losartan 25 2020-0 Yes [id number] 25mg Take 1 [facility] mg tablet 5-05 tablet by ity o f 00:00: mouth [place] 00 daily. Medical Branch losartan 25 2020-0 Yes [id number] 25mg Take 1 [facility] mg tablet 5-05 tablet by ity o f 00:00: mouth [place] 00 daily. Medical Branch losartan 25 2019-0 2020- No [id number] 25mg Take 1 [facility] mg tablet 5-05 09-02 tablet by ity of 00:00: 00:00 mouth [place] 00 :00 daily. Medical Branch losartan 25 2019-0 2020- No [id number] 25mg Take 1 [facility] mg tablet 5-05 09-02 tablet by ity of 00:00: 00:00 mouth [place] 00 :00 daily. Medical Branch losartan 25 2020-0 2020- No [id number] 25mg Take 1 [facility] mg tablet 5-10 23- tablet by ity of 00:00: 00:00 mouth [place] 00 :00 daily. Medical Branch losartan 25 2020-0 2020- No [id number] 25mg Take 1 [facility] mg tablet 5-10 23- tablet by ity of 00:00: 00:00 mouth [place] 00 :00 daily. Medical Branch losartan 25 2020-0 Yes [id number] 25mg Take 1 [facility] mg tablet -22 tablet by ity o f 00:00: mouth [place] 00 daily. Medical Branch losartan 25 2020-0 2020- No [id number] 25mg Take 1 [facility] mg tablet -05 11-05 tablet by ity of 00:00: 00:00 mouth [place] 00 :00 daily. Medical Branch losartan 50 2020-0 Yes [id number] 50mg Take 1 [facility] mg tablet 4-20 tablet by ity o f 00:00: mouth [place] 00 daily. Medical Branch losartan 50 2019-0 2020- No [id number] 50mg Take 1 [facility] mg tablet 4-04 10- tablet by ity of 00:00: 00:00 mouth [place] 00 :00 daily. Medical Branch tamsulosin 2020-0 Yes [id number] .4mg Take 1 [facility] 0.4 mg 24 4-19 capsule by ity of hr capsule 00:00: mouth at [place] 00 bedtime. Medical Branch traMADol 50 2020-0 Yes [id number] 50mg Take 1 [facility] mg tablet 4-19 tablet by ity o f 00:00: mouth [place] 00 every 6 Medical (six) Branch hours as needed for Pain (scale 4-6). tamsulosin 2020-0 Yes [id number] .4mg Take 1 [facility] 0.4 mg 24 4-19 capsule by ity of hr capsule 00:00: mouth at [place] 00 bedtime. Medical Branch traMADol 50 2020-0 Yes [id number] 50mg Take 1 [facility] mg tablet 4-19 tablet by ity o f 00:00: mouth [place] 00 every 6 Medical (six) Branch hours as needed for Pain (scale 4-6). tamsulosin 2020-0 Yes [id number] .4mg Take 1 [facility] 0.4 mg 24 4-19 capsule by ity of hr capsule 00:00: mouth at [place] 00 bedtime. Medical Branch traMADol 50 2020-0 Yes [id number] 50mg Take 1 [facility] mg tablet 4-19 tablet by ity o f 00:00: mouth [place] 00 every 6 Medical (six) Branch hours as needed for Pain (scale 4-6). tamsulosin 2020-0 Yes [id number] .4mg Take 1 [facility] 0.4 mg 24 4-19 capsule by ity of hr capsule 00:00: mouth at [place] 00 bedtime. Medical Branch traMADol 50 2020-0 Yes [id number] 50mg Take 1 [facility] mg tablet 4-19 tablet by ity o f 00:00: mouth [place] 00 every 6 Medical (six) Branch hours as needed for Pain (scale 4-6). tamsulosin 2020-0 Yes [id number] .4mg Take 1 [facility] 0.4 mg 24 4-19 capsule by ity of hr capsule 00:00: mouth at [place] 00 bedtime. Medical Branch traMADol 50 2020-0 Yes [id number] 50mg Take 1 [facility] mg tablet 4-19 tablet by ity o f 00:00: mouth [place] 00 every 6 Medical (six) Branch hours as needed for Pain (scale 4-6). tamsulosin 2020-0 Yes [id number] .4mg Take 1 [facility] 0.4 mg 24 4-19 capsule by ity of hr capsule 00:00: mouth at [place] 00 bedtime. Medical Branch tamsulosin 2020-0 Yes [id number] .4mg Take 1 [facility] 0.4 mg 24 4-19 capsule by ity of hr capsule 00:00: mouth at [place] 00 bedtime. Medical Branch tamsulosin 2020-0 Yes [id number] .4mg Take 1 [facility] 0.4 mg 24 4-19 capsule by ity of hr capsule 00:00: mouth at [place] 00 bedtime. Medical Branch tamsulosin 2020-0 Yes [id number] .4mg Take 1 [facility] 0.4 mg 24 4-19 capsule by ity of hr capsule 00:00: mouth at [place] 00 bedtime. Medical Branch tamsulosin 2020-0 Yes [id number] .4mg Take 1 [facility] 0.4 mg 24 4-19 capsule by ity of hr capsule 00:00: mouth at [place] 00 bedtime. Medical Branch tamsulosin 2020-0 Yes [id number] .4mg Take 1 [facility] 0.4 mg 24 4-19 capsule by ity of hr capsule 00:00: mouth at [place] 00 bedtime. Medical Branch tamsulosin 2020-0 Yes [id number] .4mg Take 1 [facility] 0.4 mg 24 4-19 capsule by ity of hr capsule 00:00: mouth at [place] 00 bedtime. Medical Branch tamsulosin 2020-0 Yes [id number] .4mg Take 1 [facility] 0.4 mg 24 4-19 capsule by ity of hr capsule 00:00: mouth at [place] 00 bedtime. Medical Branch tamsulosin 2020-0 Yes [id number] .4mg Take 1 [facility] 0.4 mg 24 4-19 capsule by ity of hr capsule 00:00: mouth at [place] 00 bedtime. Medical Branch tamsulosin 2020-0 Yes [id number] .4mg Take 1 [facility] 0.4 mg 24 4-19 capsule by ity of hr capsule 00:00: mouth at [place] 00 bedtime. Medical Branch tamsulosin 2019-0 Yes [id number] .4mg Take 1 [facility] 0.4 mg 24 4-19 capsule by ity of hr capsule 00:00: mouth at [place] 00 bedtime. Medical Branch tamsulosin 2019-0 Yes [id number] .4mg Take 1 [facility] 0.4 mg 24 4-19 capsule by ity of hr capsule 00:00: mouth at [place] 00 bedtime. Medical Branch tamsulosin 2019-0 2020- No [id number] .4mg Take 1 [facility] 0.4 mg 24 4-19 02-17 capsule by ity of hr capsule 00:00: 00:00 mouth at [place] 00 :00 bedtime. Medical Branch traMADol 50 2019-0 2020- No [id number] 50mg Take 1 [facility] mg tablet 10-03 07-14 tablet by ity of 00:00: 00:00 mouth [place] 00 :00 every 6 Medical (six) Branch hours as needed for Pain (scale 4-6). tamsulosin 2019-0 Yes .4mg 0.4 mg, Univ ers (FLOMAX) 4-18 Oral, ity of capsule 0.4 14:30: DAILY, [place] mg 00 First dose Medical on Sat Branch 10/03/19 at 0930, Until Discontinu ed, Routine losartan 2019-0 Yes 50mg 50 mg, [facility] (COZAAR) 4-18 Oral, ity of tablet 50 14:00: DAILY, [place] mg 00 First dose Medical on Sat Branch 10/03/19 at 0900, Until Discontinu ed, Routine enoxaparin 2020-0 2020- No 40mg 40 mg, Univ ers (LOVENOX) 10-02 Subcutaneo ity of injection 14:00: 19:30 us, DAILY, [place] 40 mg 00 :38 First dose Medical on Sat Branch 10/03/19 at 0900, Until Discontinu ed, Routine HYDROmorphO 2019-0 2020- No .6mg 0.6 mg, [facility] ne 10-02 Slow IV ity of (DILAUDID) 13:43: 03:11 Push, [place] injection 45 :48 Q4HPRN, Medical 0.6 mg Starting Branch 10/03/19 at 0843, Until 10/04/19 at 2211, Routine, Pain (scale 7-10)
U se approved by (Faculty): ADC PROVIDER HYDROmorpho 2019-0 2020- No 1mg 1 mg, Slow Univers ne 10-02 IV Push, ity of (DILAUDID) 03:12: 13:44 Q4HPRN, [place] injection 1 48 :05 Starting Medi fox mg Fri Branch 10/02/19 at 2212, Until 10/03/19 at 0844, Routine, Pain (scale 7-10)
U se approved by (Faculty): ADC PROVIDER labetalol 2020-0 Yes 200mg 200 mg, Univ ers (NORMODYNE) 10-02 Oral, ity of tablet 200 01:00: Q12H, [place] mg 00 First dose Medical on Fri Branch 10/02/19 at 2000, Until Discontinu ed, Routine labetalol 2020-0 Yes 20mg 20 mg, Univer s (NORMODYNE) 10-01 Slow IV ity o f injection 17:15: Push, [place] 20 mg 00 Q8HPRN, Medical Starting Branch 10/02/19 at 1215, Until Discontinu ed, Routine, Keep SPB <12 0/80 traMADol 2020-0 Yes 50mg 50 mg, [facility] (ULTRAM) 10-01 Oral, ity of tablet 50 17:00: Q4HPRN, [place] mg 42 Starting Medical Fri Branch 10/02/19 at 1200, Until Discontinu ed, Routine, Pain (scale 4-6) labetalol 2019-0 2020- No 20mg 20 mg, Unive rs (NORMODYNE) 10-01 Slow IV ity of injection 16:00: 17:02 Push, [place] 20 mg 00 :51 Q12H, Medical First dose Branch on Sat10/02/19 at 1100, Until Discontinu ed, Routine morpHINE 2019-0 2020- No 4mg 4 mg, Slow [place] injection 4 10-01 IV Push, ity of mg 15:45: 15:45 ONCE, 1 [place] 00 :00 dose, Fri Medical 10/02/19 at Branch 1045, STAT nitroglycer 2019-0 Yes .4mg 0.4 mg, Uni vers in 10-01 Sublingual ity of (NITROSTAT) 15:40: , Q5MIN [place] sublingual 26 PRN, Medical tablet 0.4 Starting Branc h mg 10/02/19 at 1040, Until Discontinu ed, Routine, Chest pain morpHINE 2019-0 2020- No 2mg 2 mg, Slow [facility] [place] injection 2 10-01 IV Push, ity of mg 15:38: 03:11 Q3HPRN, [place] 37 :54 Starting Medical Fri Branch 10/02/19 at 1038, Until Sat10/02/19 at 2211, Routine, Pain (scale 7-10) hydralAZINE 2019-0 2020- No 10mg 10 mg, Uni vers (APRESOLINE 10-01 Slow IV ity of ) injection 13:15: 12:23 Push, [place] 10 mg 00 :00 ONCE, 1 Medical dose, Fri Branch 10/02/19 at 0815, ERIS morpHINE 2019-0 2020- No 4mg 4 mg, Slow [place] injection 4 10-01 IV Push, ity of mg 11:45: 10:46 ONCE, 1 [place] 00 :00 dose, Fri Medical 10/02/19 at Branch 0645, STAT iohexol 2020-0 2020- No 150mL 150 mL, Unive rs (OMNIPAQUE 10-01 Intravenou it y of 350 11:45: 11:45 s, ONCE, 1 [place] BULK-150 00 :00 dose, Fri Medica l mL) 10/02/19 at Branch injection 0645, 150 mL Routine ondansetron 2020-0 2020- No 4mg 4 mg, Slow [facility] (ZOFRAN 10-01 IV Push, ity of (PF)) 11:15: 10:12 ONCE, 1 [place] injection 4 00 :00 dose, Fri Med ical mg 10/02/19 at Branch 0615, ERIS morpHINE 2020-0 2020- No 4mg 4 mg, Slow [facility] [place] injection 4 10-01 IV Push, ity of mg 11:15: 10:12 ONCE, 1 [place] 00 :00 dose, Fri Medical 10/02/19 at Branch 0615, STAT labetalol 2020-0 Yes [id number] 200mg Take 1 [facility] 200 mg 4-14 tablet by ity of tablet 00:00: mouth [place] 00 every 12 Medical (twelve) Branch hours. labetalol 2020-0 Yes [id number] 200mg Take 1 [facility] 200 mg 4-14 tablet by ity of tablet 00:00: mouth [place] 00 every 12 Medical (twelve) Branch hours. labetalol 2020-0 Yes [id number] 200mg Take 1 [facility] 200 mg 4-14 tablet by ity of tablet 00:00: mouth [place] 00 every 12 Medical (twelve) Branch hours. labetalol 2020-0 Yes [id number] 200mg Take 1 [facility] 200 mg 4-14 tablet by ity of tablet 00:00: mouth [place] 00 every 12 Medical (twelve) Branch hours. labetalol 2020-0 Yes [id number] 200mg Take 1 [facility] 200 mg 4-14 tablet by ity of tablet 00:00: mouth [place] 00 every 12 Medical (twelve) Branch hours. labetalol 2020-0 Yes [id number] 200mg Take 1 [facility] 200 mg 4-14 tablet by ity of tablet 00:00: mouth [place] 00 every 12 Medical (twelve) Branch hours. labetalol 2020-0 Yes [id number] 200mg Take 1 [facility] 200 mg 4-14 tablet by ity of tablet 00:00: mouth [place] 00 every 12 Medical (twelve) Branch hours. labetalol 2020-0 Yes [id number] 200mg Take 1 [facility] 200 mg 4-14 tablet by ity of tablet 00:00: mouth [place] 00 every 12 Medical (twelve) Branch hours. labetalol 2020-0 2020- No [id number] 200mg Take 1 [facility] 200 mg 4-14 08-24 tablet by ity of tablet 00:00: 00:00 mouth [place] 00 :00 every 12 Medical (twelve) Branch hours. cyclobenzap 2020-0 Yes 5mg 5 mg, Unive rs rine 4-04 Oral, TID, ity of (FLEXERIL) 15:15: First dose [place] tablet 5 mg 00 on Sat Medica l 09/19/19 at Branch 1015, Until Discontinu ed, Routine traMADol 2020-0 Yes 50mg 50 mg, [facility] (ULTRAM) 4-04 Oral, ity of tablet 50 14:45: Q4HPRN, [place] mg 00 Starting Medical 09/19/19 Branch at 0945, Until Discontinu ed, Routine, Pain (scale 1-3) pantoprazol 2020-0 Yes 40mg 40 mg, Univ ers e 4-04 Oral, ity of (PROTONIX) 14:00: DAILY, [place] EC tablet 00 First dose Medi fox 40 mg on Sat Branch 09/19/19 at 0900, Until Discontinu ed, Routine labetalol 2020-0 Yes [id number] 100mg Take 1 [facility] 100 mg 4-04 tablet by ity of tablet 00:00: mouth [place] 00 every 12 Medical (twelve) Branch hours. cyclobenzap 2020-0 Yes [id number] 5mg Take 1 [facility] rine 5 mg 4-04 tablet by ity o f tablet 00:00: mouth 3 [place] 00 (three) Medical times Branch daily. traMADol 50 2020-0 Yes [id number] 50mg Take 1 [facility] mg tablet 4-04 tablet by ity o f 00:00: mouth [place] 00 every 4 Medical (four) Branch hours as needed for Pain (scale 4-6). labetalol 2020-0 Yes [id number] 100mg Take 1 [facility] 100 mg 4-04 tablet by ity of tablet 00:00: mouth [place] 00 every 12 Medical (twelve) Branch hours. cyclobenzap 2020-0 Yes [id number] 5mg Take 1 [facility] rine 5 mg 4-04 tablet by ity o f tablet 00:00: mouth 3 [place] 00 (three) Medical times Branch daily. traMADol 50 2020-0 Yes [id number] 50mg Take 1 [facility] mg tablet 4-04 tablet by ity o f 00:00: mouth [place] 00 every 4 Medical (four) Branch hours as needed for Pain (scale 4-6). labetalol 2020-0 Yes [id number] 100mg Take 1 [facility] 100 mg 4-04 tablet by ity of tablet 00:00: mouth [place] 00 every 12 Medical (twelve) Branch hours. cyclobenzap 2020-0 Yes [id number] 5mg Take 1 [facility] rine 5 mg 4-04 tablet by ity o f tablet 00:00: mouth 3 [place] 00 (three) Medical times Branch daily. traMADol 50 2020-0 Yes [id number] 50mg Take 1 [facility] mg tablet 4-04 tablet by ity o f 00:00: mouth [place] 00 every 4 Medical (four) Branch hours as needed for Pain (scale 4-6). labetalol 2020-0 Yes [id number] 100mg Take 1 [facility] 100 mg 4-04 tablet by ity of tablet 00:00: mouth [place] 00 every 12 Medical (twelve) Branch hours. cyclobenzap 2020-0 Yes [id number] 5mg Take 1 [facility] rine 5 mg 4-04 tablet by ity o f tablet 00:00: mouth 3 [place] 00 (three) Medical times Branch daily. traMADol 50 2020-0 Yes [id number] 50mg Take 1 [facility] mg tablet 4-04 tablet by ity o f 00:00: mouth [place] 00 every 4 Medical (four) Branch hours as needed for Pain (scale 4-6). cyclobenzap 2020-0 Yes [id number] 5mg Take 1 [facility] rine 5 mg 4-04 tablet by ity o f tablet 00:00: mouth 3 [place] 00 (three) Medical times Branch daily. traMADol 50 2020-0 Yes [id number] 50mg Take 1 [facility] mg tablet 4-04 tablet by ity o f 00:00: mouth [place] 00 every 4 Medical (four) Branch hours as needed for Pain (scale 4-6). cyclobenzap 2020-0 Yes [id number] 5mg Take 1 [facility] rine 5 mg 4-04 tablet by ity o f tablet 00:00: mouth 3 [place] 00 (three) Medical times Branch daily. traMADol 50 2020-0 Yes [id number] 50mg Take 1 [facility] mg tablet 4-04 tablet by ity o f 00:00: mouth [place] 00 every 4 Medical (four) Branch hours as needed for Pain (scale 4-6). cyclobenzap 2020-0 Yes [id number] 5mg Take 1 [facility] rine 5 mg 4-04 tablet by ity o f tablet 00:00: mouth 3 [place] 00 (three) Medical times Branch daily. cyclobenzap 2020-0 Yes [id number] 5mg Take 1 [facility] rine 5 mg 4-04 tablet by ity o f tablet 00:00: mouth 3 [place] 00 (three) Medical times Branch daily. cyclobenzap 2020-0 Yes [id number] 5mg Take 1 [facility] rine 5 mg 4-04 tablet by ity o f tablet 00:00: mouth 3 [place] 00 (three) Medical times Branch daily. cyclobenzap 2020-0 Yes [id number] 5mg Take 1 [facility] rine 5 mg 4-04 tablet by ity o f tablet 00:00: mouth 3 [place] 00 (three) Medical times Branch daily. cyclobenzap 2020-0 Yes [id number] 5mg Take 1 [facility] rine 5 mg 4-04 tablet by ity o f tablet 00:00: mouth 3 00 (three) Medical times Branch daily. labetalol 2020-0 Yes [id number] 100mg Take 1 [facility] 100 mg 4-04 tablet by ity of tablet 00:00: mouth [place] 00 every 12 Medical (twelve) Branch hours. cyclobenzap 2020-0 Yes [id number] 5mg Take 1 [facility] rine 5 mg 4-04 tablet by ity o f tablet 00:00: mouth 3 00 (three) Medical times Branch daily. traMADol 50 2020-0 Yes [id number] 50mg Take 1 [facility] mg tablet 4-04 tablet by ity o f 00:00: mouth [place] 00 every 4 Medical (four) Branch hours as needed for Pain (scale 4-6). cyclobenzap 2020-0 2020- No [id number] 5mg Take 1 [facility] rine 5 mg 4-04 07-14 tablet by ity of tablet 00:00: 00:00 mouth 3 [place] 00 :00 (three) Medical times Branch daily. traMADol 50 2020-0 2020- No [id number] 50mg Take 1 [facility] mg tablet 4-04 04-19 tablet by ity of 00:00: 00:00 mouth [place] 00 :00 every 4 Medical (four) Branch hours as needed for Pain (scale 4-6). labetalol 2020-0 2020- No [id number] 100mg Take 1 [facility] 100 mg 4-04 04-14 tablet by ity of tablet 00:00: 00:00 mouth [place] 00 :00 every 12 Medical (twelve) Branch hours. acetaminoph 2020-0 Yes 650mg 650 mg, Un sun[facility] en 4-03 Oral, Q6H, ity of (TYLENOL) 23:00: First dose [place] tablet 650 00 on Fri Medical mg 09/18/19 at Branch 1800, Until Discontinu ed, Routine traMADol 2019-0 2020- No 50mg 50 mg, Univer s (ULTRAM) 09-17 04-04 Oral, ity of tablet 50 22:04: 14:42 Q6HPRN, [place] mg 56 :17 Starting Medical 09/18/19 Branch at 1704, Until 09/19/19 at 0942, Routine, Pain (scale 4-6) sennosides- 2019-0 Yes 1{tbl} 1 tablet, Univers docusate 09-17 Oral, ity of sodium 15:45: DAILY, [place] (SENOKOT S) 00 First dose Me dical 8.6-50 mg on Sat Branch per tablet 09/18/19 at 1 tablet 1045, Until Discontinu ed, Routine labetalol 2019-0 Yes 100mg 100 mg, Univ ers (NORMODYNE) 09-17 Oral, ity of tablet 100 14:15: Q12H, [place] mg 00 First dose Medical on Sat Branch 09/18/19 at 0915, Until Discontinu ed, Routine lactated 2019-0 2020- No 1000mL at 50 Unive rs ringers IV 09-17 04-04 mL/hr, ity of infusion 14:15: 14:42 1,000 mL, [place] 1,000 mL 00 :16 IV Medical Infusion, Branch CONTINUOUS , Starting Sat09/18/19 at 0915, Until 09/19/19 at 0942, Routine acetaminoph 2019-0 2020- No 1000mg 1,000 mg, [facility] en ADULT 09-17 04-03 IV ity of (OFIRMEV) 03:00: 14:09 Infusion, [place] injection 00 :48 Administer Medi fox 1,000 mg over 15 Branch Minutes, Q8H, 3 doses, First dose on Onelia 09/17/19 at 2200, Last dose on Sat09/18/19 at 1400, Routine
Indicatio n: Perioperat eli Patient diltiazem 2019-0 Yes 2.5mg/h 2.5-15 Uni vers (CARDIZEM 4-03 mg/hr ity of IV) 125 mg 00:28: (2[place] D5W 35 mL/hr), IV Medical infusion Infusion, Branch TITRATE, map 65-85, Starting Onelia 09/17/19 at 1928
In itiate infusion at 2.5 mg/hr. Titrate by 2.5 mg/hr every 5 minutes to 15 minutes as needed to achieve and maintain goal heart rate. Maximum dose = 15 mg/hr. If goal not maintained at maximum allowed dose, contact prescriber .
esmolol in 2020-0 2020- No 25ug/kg 25-300 U nivers saline 4-02 04-02 /min mcg/kg/min ity of (BREVIBLOC) 22:19: 22:30 ?95 kg [place] as 2,500 30 :42 (14.25-171 Medical mg/250 mL mL/hr), IV Bran ch (10 mg/mL) Infusion, infusion TITRATE, SBP 120-130, Starting Onelia 09/17/19 at 1719
In itiate infusion at 25 mcg/kg/min . Titrate by 25 mcg/kg/min every 5 minutes to 10 minutes as needed to achieve and maintain goal heart rate or blood pressure.& nbsp;&nbsp ;Maximum dose = 300 mcg/kg/min . If goal not maintained at maximum allowed dose, contact prescriber . &lt ;br> esmolol in 2020-0 Yes 25ug/kg 25-300 Un sunil saline 4-02 /min mcg/kg/min ity of (BREVIBLOC) 21:20: ?95 [place] 2,500 00 (14.25-171 Medical mg/250 mL mL/hr), IV Bran ch (10 mg/mL) Infusion, infusion TITRATE, MAP goal 65-85, Starting Onelia 09/17/19 at 1620
In itiate infusion at 25 mcg/kg/min . Titrate by 25 mcg/kg/min every 5 minutes to 10 minutes as needed to achieve and maintain goal heart rate or blood pressure.& nbsp;&nbsp ;Maximum dose = 300 mcg/kg/min . If goal not maintained at maximum allowed dose, contact prescriber .
lactated 2020- No 1000mL at 125 Univ ers ringers IV 09-16 04-03 mL/hr, ity of infusion 21:15: 14:09 1,000 mL, [place] as 1,000 mL 00 :49 IV Medical Infusion, Branch CONTINUOUS , Starting Onelia 09/17/19 at 1615, Until 09/18/19 at 0909, Routine iohexol 2019- No 100mL 100 mL, Unive rs (OMNIPAQUE 09-16 Intravenou it y of 350 21:09: 21:09 s, ONCE, 1 [place] BULK-100 00 :00 dose, [facility] Medica l mL) 09/17/19 at Branch injection 1630, 100 mL Routine morpHINE 2019- No 2mg 2 mg, Slow Un sunil injection 2 09-16-04 IV Push, ity of mg 21:04: 14:42 Q3HPRN, [place] 14 :16 Starting Medical On[place] 09/17/19 Branch at 1604, Until 09/19/19 at 0942, Routine, Pain (scale 7-10) ondansetron Yes 4mg 4 mg, Slow Univers (ZOFRAN -02 IV Push, ity of (PF)) 21:02: Q6HPRN, [place] injection 4 58 Starting Medi fox mg [place] 09/17/19 Branch at 1602, Until Discontinu ed, Routine, Nausea and Vomiting (N/V) acetaminoph Yes 1{tbl} Take 1-2 Univers en-codeine 6-16 tablets by ity of 300-30 mg 00:00: mouth [place] tablet 00 every 6 Medical (six) Branch hours as needed for Pain (scale 1-3). acetaminoph Yes 1{tbl} Take 1-2 Univers en-codeine 6-16 tablets by ity of 300-30 mg 00:00: mouth [place] tablet 00 every 6 Medical (six) Branch hours as needed for Pain (scale 1-3). acetaminoph Yes 1{tbl} Take 1-2 Univers en-codeine 6-16 tablets by ity of 300-30 mg 00:00: mouth [place] tablet 00 every 6 Medical (six) Branch hours as needed for Pain (scale 1-3). acetaminoph 2017-0 Yes 1{tbl} Take 1-2 Univers en-codeine 6-16 tablets by ity of 300-30 mg 00:00: mouth [place] tablet 00 every 6 Medical (six) Branch hours as needed for Pain (scale 1-3). tamsulosin 2017-0 Yes .4mg Take 1 Unive rs 0.4 mg 24 6-16 capsule by ity of hr capsule 00:00: mouth at [place] 00 bedtime. Medical Branch acetaminoph Yes 1{tbl} Take 1-2 Univers en-codeine 6-16 tablets by ity of 300-30 mg 00:00: mouth [place] tablet 00 every 6 Medical (six) Branch hours as needed for Pain (scale 1-3). tamsulosin 2017-0 Yes .4mg Take 1 Unive rs 0.4 mg 24 6-16 capsule by ity of hr capsule 00:00: mouth at [place] 00 bedtime. Medical Branch acetaminoph Yes 1{tbl} Take 1-2 Univers en-codeine 6-16 tablets by ity of 300-30 mg 00:00: mouth [place] tablet 00 every 6 Medical (six) Branch hours as needed for Pain (scale 1-3). tamsulosin 2017-0 Yes .4mg Take 1 Unive rs 0.4 mg 24 6-16 capsule by ity of hr capsule 00:00: mouth at [place] 00 bedtime. Medical Branch acetaminoph Yes 1{tbl} Take 1-2 Univers en-codeine 6-16 tablets by ity of 300-30 mg 00:00: mouth [place] tablet 00 every 6 Medical (six) Branch hours as needed for Pain (scale 1-3). tamsulosin 2017-0 Yes .4mg Take 1 Unive rs 0.4 mg 24 6-16 capsule by ity of hr capsule 00:00: mouth at [place] 00 bedtime. Medical Branch acetaminoph Yes 1{tbl} Take 1-2 Univers en-codeine 6-16 tablets by ity of 300-30 mg 00:00: mouth [place] tablet 00 every 6 Medical (six) Branch hours as needed for Pain (scale 1-3). tamsulosin 2017-0 Yes .4mg Take 1 Unive rs 0.4 mg 24 6-16 capsule by ity of hr capsule 00:00: mouth at [place] 00 bedtime. Medical Branch acetaminoph Yes 1{tbl} Take 1-2 Univers en-codeine 6-16 tablets by ity of 300-30 mg 00:00: mouth [place] tablet 00 every 6 Medical (six) Branch hours as needed for Pain (scale 1-3). tamsulosin Yes .4mg Take 1 Unive rs 0.4 mg 24 6-16 capsule by ity of hr capsule 00:00: mouth at [place] 00 bedtime. Medical Branch acetaminoph Yes 1{tbl} Take 1-2 Univers en-codeine 6-16 tablets by ity of 300-30 mg 00:00: mouth [place] tablet 00 every 6 Medical (six) Branch hours as needed for Pain (scale 1-3). tamsulosin Yes .4mg Take 1 Unive rs 0.4 mg 24 6-16 capsule by ity of hr capsule 00:00: mouth at [place] 00 bedtime. Medical Branch acetaminoph Yes 1{tbl} Take 1-2 Univers en-codeine 6-16 tablets by ity of 300-30 mg 00:00: mouth [place] tablet 00 every 6 Medical (six) Branch hours as needed for Pain (scale 1-3). acetaminoph Yes 1{tbl} Take 1-2 Univers en-codeine 6-16 tablets by ity of 300-30 mg 00:00: mouth [place] tablet 00 every 6 Medical (six) Branch hours as needed for Pain (scale 1-3). acetaminoph 2020- No 1{tbl} Take 1-2 Univers en-codeine 6-16 07-14 tablets by it y of 300-30 mg 00:00: 00:00 mouth [place] tablet 00 :00 every 6 Medical (six) Branch hours as needed for Pain (scale 1-3). tamsulosin 2020- No .4mg Take 1 Univ ers 0.4 mg 24 6-16 04-19 capsule by ity of hr capsule 00:00: 00:00 mouth at [place] 00 :00 bedtime. Medical Branch Atorvastati Atorvastati No 1{table Atorvastat n Calcium n Calcium t} in Calcium 40 MG 40 MG 40 MG Metoprolol Metoprolol No 1{table QD Metoprolol Succinate Succinate t} Succinate ER 25 MG ER 25 MG ER 25 MG Metoprolol Metoprolol No Metoprolol Succinate Succinate Succinate ER 25 MG ER 25 MG ER 25 MG Losartan Losartan No Losartan Potassium Potassium Potassium 100 MG 100 MG 100 MG Losartan Losartan No 1{table QD Losartan Potassium Potassium t} Potassium 100 MG 100 MG 100 MG Atorvastati Atorvastati No 1{table Atorvastat n Calcium n Calcium t} in Calcium 40 MG 40 MG 40 MG Metoprolol Metoprolol No 1{table QD Metoprolol Succinate Succinate t} Succinate ER 25 MG ER 25 MG ER 25 MG Metoprolol Metoprolol No Metoprolol Succinate Succinate Succinate ER 25 MG ER 25 MG ER 25 MG Losartan Losartan No Losartan Potassium Potassium Potassium 100 MG 100 MG 100 MG Losartan Losartan No 1{table QD Losartan Potassium Potassium t} Potassium 100 MG 100 MG 100 MG Losartan Losartan No 1{table QD Losartan Potassium Potassium t} Potassium 100 MG 100 MG 100 MG Metoprolol Metoprolol No 1{table QD Metoprolol Succinate Succinate t} Succinate ER 25 MG ER 25 MG ER 25 MG Atorvastati Atorvastati No 1{table Atorvastat n Calcium n Calcium t} in Calcium 40 MG 40 MG 40 MG Losartan Losartan No 1{table QD Losartan Potassium Potassium t} Potassium 50 MG 50 MG 50 MG Atorvastati Atorvastati No 1{table Atorvastat n Calcium n Calcium t} in Calcium 40 MG 40 MG 40 MG Metoprolol Metoprolol No 1{table QD Metoprolol Succinate Succinate t} Succinate ER 25 MG ER 25 MG ER 25 MG Losartan Losartan No 1{table QD Losartan Potassium Potassium t} Potassium 100 MG 100 MG 100 MG Atorvastati Atorvastati No 1{table Atorvastat n Calcium n Calcium t} in Calcium 40 MG 40 MG 40 MG Losartan Losartan No Losartan Potassium Potassium Potassium 100 MG 100 MG 100 MG Metoprolol Metoprolol No Metoprolol Succinate Succinate Succinate ER 25 MG ER 25 MG ER 25 MG Metoprolol Metoprolol No 1{table QD Metoprolol Succinate Succinate t} Succinate ER 25 MG ER 25 MG ER 25 MG Losartan Losartan No Losartan Potassium Potassium Potassium 100 MG 100 MG 100 MG Atorvastati Atorvastati No 1{table Atorvastat n Calcium n Calcium t} in Calcium 40 MG 40 MG 40 MG Metoprolol Metoprolol No Metoprolol Succinate Succinate Succinate ER 25 MG ER 25 MG ER 25 MG Losartan Losartan No 1{table QD Losartan Potassium Potassium t} Potassium 100 MG 100 MG 100 MG Losartan Losartan No 1{table QD Losartan Potassium Potassium t} Potassium 100 MG 100 MG 100 MG Losartan Losartan No Losartan Potassium Potassium Potassium 100 MG 100 MG 100 MG Metoprolol Metoprolol No Metoprolol Succinate Succinate Succinate ER 25 MG ER 25 MG ER 25 MG Metoprolol Metoprolol No 1{table QD Metoprolol Succinate Succinate t} Succinate ER 25 MG ER 25 MG ER 25 MG Atorvastati Atorvastati No 1{table Atorvastat n Calcium n Calcium t} in Calcium 40 MG 40 MG 40 MG Losartan Losartan No Losartan Potassium Potassium Potassium 100 MG 100 MG 100 MG Metoprolol Metoprolol No 1{table QD Metoprolol Succinate Succinate t} Succinate ER 25 MG ER 25 MG ER 25 MG Losartan Losartan No 1{table QD Losartan Potassium Potassium t} Potassium 100 MG 100 MG 100 MG Atorvastati Atorvastati No 1{table Atorvastat n Calcium n Calcium t} in Calcium 40 MG 40 MG 40 MG Metoprolol Metoprolol No Metoprolol Succinate Succinate Succinate ER 25 MG ER 25 MG ER 25 MG Immunizations Ordered Filled Immunization Date Status Comments Sour e Immunization Name Name SARS-COV-2 COVID-19 2020-09-03 Completed Unive rsity of PFIZER VACCINE 00:00:00 [facility] SARS-COV-2 COVID-19 2020-09-03 Completed Unive rsity of PFIZER VACCINE 00:00:00 [facility] SARS-COV-2 COVID-19 2020-09-03 Completed Unive rsity of PFIZER VACCINE 00:00:00 [facility] SARS-COV-2 COVID-19 2020-09-03 Completed Unive rsity of PFIZER VACCINE 00:00:00 [facility] SARS-COV-2 COVID-19 2020-09-03 Completed Unive rsity of PFIZER VACCINE 00:00:00 [facility] SARS-COV-2 COVID-19 2020-09-03 Completed Unive rsity of PFIZER VACCINE 00:00:00 [facility] SARS-COV-2 COVID-19 2020-09-03 Completed Unive rsity of PFIZER VACCINE 00:00:00 [facility] Branch SARS-COV-2 COVID-19 2020-09-03 Completed Unive rsity of PFIZER VACCINE 00:00:00 [place] [facility] Branch SARS-COV-2 COVID-19 2020-09-03 Completed Unive rsity of PFIZER VACCINE 00:00:00 [facility] Branch SARS-COV-2 COVID-19 2020-09-03 Completed Unive rsity of PFIZER VACCINE 00:00:00 [facility] Branch SARS-COV-2 COVID-19 2020-09-03 Completed Unive rsity of PFIZER VACCINE 00:00:00 [facility] Branch SARS-COV-2 COVID-19 2020-08-13 Completed Unive rsity of PFIZER VACCINE 00:00:00 [facility] Branch SARS-COV-2 COVID-19 2020-08-13 Completed Unive rsity of PFIZER VACCINE 00:00:00 [facility] Branch SARS-COV-2 COVID-19 2020-08-13 Completed Unive rsity of PFIZER VACCINE 00:00:00 [facility] Branch SARS-COV-2 COVID-19 2020-08-13 Completed Unive rsity of PFIZER VACCINE 00:00:00 [facility] Branch SARS-COV-2 COVID-19 2020-08-13 Completed Unive rsity of PFIZER VACCINE 00:00:00 [facility] Branch SARS-COV-2 COVID-19 2020-08-13 Completed Unive rsity of PFIZER VACCINE 00:00:00 [facility] Branch SARS-COV-2 COVID-19 2020-08-13 Completed Unive rsity of PFIZER VACCINE 00:00:00 [facility] Branch SARS-COV-2 COVID-19 2020-08-13 Completed Unive rsity of PFIZER VACCINE 00:00:00 [facility] Branch SARS-COV-2 COVID-19 2020-08-13 Completed Unive rsity of PFIZER VACCINE 00:00:00 [facility] Branch SARS-COV-2 COVID-19 2020-08-13 Completed Unive rsity of PFIZER VACCINE 00:00:00 [facility] SARS-COV-2 COVID-19 2020-08-13 Completed Unive rsity of PFIZER VACCINE 00:00:00 [facility] SARS-COV-2 COVID-19 2020-08-13 Completed Unive rsity of PFIZER VACCINE 00:00:00 [facility] Flucelvax - Flucelvax - 2020-03-24 Completed [facility] multidose vial multidose vial 08:37:00 [facility] Flucelvax - Flucelvax - 2020-03-24 Completed [facility] - multidose vial multidose vial 08:37:00 [facility] Flucelvax - Flucelvax - 2020-03-24 Completed [facility] - multidose vial multidose vial 08:37:00 [facility] Flucelvax - Flucelvax - 2020-03-24 Completed [facility] - multidose vial multidose vial 08:37:00 [facility] Flucelvax - Flucelvax - 2020-03-24 Completed [facility] - multidose vial multidose vial 08:37:00 [facility] Flucelvax - Flucelvax - 2020-03-24 Completed [facility] - multidose vial multidose vial 08:37:00 [facility] Flucelvax - Flucelvax - 2020-03-24 Completed [facility] - multidose vial multidose vial 08:37:00 [facility] Flucelvax - Flucelvax - 2020-03-24 Completed [facility] - multidose vial multidose vial 08:37:00 [facility] Vital Signs Vital Name Observation Time Observation Value Comments Source HEIGHT 2021-01-31 180.3 cm 13:18:00 WEIGHT 2021-01-31 97.523 kg 13:18:00 WEIGHT 2020-10-21 92.1 kg 02:18:00 WEIGHT 2020-10-20 93.123 kg 03:10:00 WEIGHT 2020-10-19 95.89 kg 04:08:00 WEIGHT 2020-10-17 102.967 kg 07:30:00 WEIGHT 2020-10-15 97.523 kg 15:00:00 HEIGHT 2020-10-15 180.3 cm 15:00:00 Systolic blood 2022-04-06 94 mm[Hg] University of pressure 16:57:00 [facility] Diastolic blood 2022-04-06 59 mm[Hg] [facility] f pressure 16:57:00 [facility] Heart rate 2022-04-06 87 /min [facility] 16:57:00 [facility] Body temperature 2022-04-06 36.61 Sayra [facility] 16:57:00 [facility] Respiratory rate 2022-04-06 20 /min [facility] 16:57:00 [facility] Oxygen saturation 2022-04-06 98 /min [facility] in Arterial blood 16:57:00 [facility] by Pulse oximetry Branch weight 2022-02-26 214.8 [lb_av] [facility] - 08:20:00 [facility] temperature 2022-02-26 98.6 [degF] [facility] - 08:20:00 [facility] bmi 2022-02-26 28.34 kg/m2 [facility] - 08:20:00 [facility] oximetry 2022-02-26 98 % [facility] - 08:20:00 [facility] respiratory rate 2022-02-26 17 /min [facility] - 08:20:00 [facility] blood pressure 2022-02-26 142 mm[Hg] [facility] - systolic 08:20:00 [facility] blood pressure 2022-02-26 86 mm[Hg] [facility] - diastolic 08:20:00 [facility] height 2022-02-26 73 [in_i] [facility] - 08:20:00 [facility] height 2021-08-15 71 [in_i] [facility] - 08:40:00 [facility] weight 2021-08-15 221.6 [lb_av] [facility] - 08:40:00 [facility] temperature 2021-08-15 97.4 [degF] [facility] - 08:40:00 [facility] bmi 2021-08-15 30.9 kg/m2 [facility] - 08:40:00 [facility] oximetry 2021-08-15 98 % [facility] - 08:40:00 [facility] respiratory rate 2021-08-15 18 /min [facility] - 08:40:00 [facility] blood pressure 2021-08-15 134 mm[Hg] [facility] - systolic 08:40:00 [facility] blood pressure 2021-08-15 72 mm[Hg] [facility] - diastolic 08:40:00 [facility] WEIGHT 2021-03-19 108.818 kg 04:35:00 HEIGHT 2021-03-17 180.3 cm 06:24:00 WEIGHT 2021-03-17 102.5 kg 06:24:00 HEIGHT 2021-03-15 180.3 cm 13:44:00 WEIGHT 2021-03-15 97.523 kg 13:44:00 WEIGHT 2021-03-19 108.818 kg 04:35:00 HEIGHT 2021-03-17 180.3 cm 06:24:00 WEIGHT 2021-03-17 102.5 kg 06:24:00 HEIGHT 2021-03-15 180.3 cm 13:44:00 WEIGHT 2021-03-15 97.523 kg 13:44:00 HEIGHT 2021-03-16 180.3 cm 11:39:00 WEIGHT 2021-03-16 102.513 kg 11:39:00 HEIGHT 2021-03-16 180.3 cm 11:39:00 WEIGHT 2021-03-16 102.513 kg 11:39:00 HEIGHT 2020-11-29 180.3 cm 08:18:00 WEIGHT 2020-11-29 98.839 kg 08:18:00 WEIGHT 2020-10-21 92.1 kg 02:18:00 WEIGHT 2020-10-20 93.123 kg 03:10:00 WEIGHT 2020-10-19 95.89 kg 04:08:00 WEIGHT 2020-10-17 102.967 kg 07:30:00 WEIGHT 2020-10-15 97.523 kg 15:00:00 HEIGHT 2020-10-15 180.3 cm 15:00:00 Height 2020-10-14 180.34 CM 15:35:00 Weight 2020-10-14 97.52 KG 15:35:00 Systolic blood 2020-09-15 113 mm[Hg] [facility] pressure 20:42:00 [facility] Diastolic blood 2020-09-15 73 mm[Hg] University o f pressure 20:42:00 [facility] Heart rate 2020-09-15 66 /min University of 20:42:00 [facility] Respiratory rate 2020-09-15 20 /min University of 20:42:00 [facility] Body height 2020-09-15 180.3 cm University of 20:42:00 [facility] Body weight 2020-09-15 97.297 kg University of 20:42:00 [facility] BMI 2020-09-15 29.92 kg/m2 University of 20:42:00 [facility] Systolic blood 2020-09-07 138 mm[Hg] [facility] of pressure 21:00:00 [facility] Diastolic blood 2020-09-07 104 mm[Hg] University o f pressure 21:00:00 [facility] Heart rate 2020-09-07 53 /min University of 21:00:00 [facility] Respiratory rate 2020-09-07 18 /min University of 21:00:00 [facility] Oxygen saturation 2020-09-07 98 /min [place] of in Arterial blood 21:00:00 [facility] by Pulse oximetry Branch Body temperature 2020-09-07 36.17 Sayra University of 18:50:00 [facility] Body weight 2020-09-07 98.884 kg University of 18:50:00 [facility] BMI 2020-09-07 30.40 kg/m2 University of 18:50:00 [facility] Heart rate 2020-05-18 59 /min University of 12:30:00 [facility] Oxygen saturation 2020-05-18 96 /min University of in Arterial blood 12:30:00 [facility] by Pulse oximetry Branch Systolic blood 2020-05-18 115 mm[Hg] University of pressure 12:00:00 [facility] Diastolic blood 2020-05-18 82 mm[Hg] University o f pressure 12:00:00 [facility] Respiratory rate 2020-05-18 18 /min University of 12:00:00 [facility] Body temperature 2020-05-18 35.67 Sayra University of 10:30:00 [facility] Body height 2020-05-18 180.3 cm University of 10:30:00 [facility] Body weight 2020-05-18 95.255 kg University of 10:30:00 [facility] BMI 2020-05-18 29.29 kg/m2 University of 10:30:00 [facility] Systolic blood 2020-05-02 130 mm[Hg] [facility] of pressure 16:24:00 [facility] Diastolic blood 2020-05-02 91 mm[Hg] University o f pressure 16:24:00 [facility] Heart rate 2020-05-02 64 /min University of 16:24:00 [facility] Body temperature 2020-05-02 37.06 Sayra University of 16:24:00 [facility] Respiratory rate 2020-05-02 18 /min University of 16:24:00 [facility] Body weight 2020-05-02 95.255 kg University of 16:24:00 [facility] BMI 2020-05-02 29.29 kg/m2 University of 16:24:00 [facility] Oxygen saturation 2020-05-02 99 /min University of in Arterial blood 16:24:00 [place] [facility] by Pulse oximetry Branch Systolic blood 2020-02-17 133 mm[Hg] [facility] pressure 13:55:00 [facility] Diastolic blood 2020-02-17 93 mm[Hg] University o f pressure 13:55:00 [facility] Heart rate 2020-02-17 59 /min University of 13:55:00 [facility] Oxygen saturation 2020-02-17 95 /min University of in Arterial blood 13:55:00 [place] [facility] by Pulse oximetry Branch Body height 2020-02-17 180.3 cm University of 13:49:00 [facility] Body weight 2020-02-17 97.523 kg University of 13:49:00 [facility] BMI 2020-02-17 29.99 kg/m2 University of 13:49:00 [facility] Systolic blood 2019-12-29 133 mm[Hg] [facility] of pressure 17:51:00 [facility] Diastolic blood 2019-12-29 88 mm[Hg] University o f pressure 17:51:00 [facility] Heart rate 2019-12-29 78 /min University of 17:51:00 [facility] Body temperature 2019-12-29 36.61 Sayra University of 17:51:00 [facility] Respiratory rate 2019-12-29 18 /min University of 17:51:00 [facility] Body weight 2019-12-29 90.719 kg University of 17:51:00 [facility] BMI 2019-12-29 27.89 kg/m2 University of 17:51:00 [facility] Oxygen saturation 2019-12-29 98 /min University of in Arterial blood 17:51:00 [place] [facility] by Pulse oximetry Branch Systolic blood 2019-10-04 106 mm[Hg] [facility] of pressure 15:31:00 [facility] Diastolic blood 2019-10-04 69 mm[Hg] University o f pressure 15:31:00 [facility] Heart rate 2019-10-04 64 /min University of 15:31:00 [facility] Body temperature 2019-10-04 36.67 Sayra University of 15:31:00 [facility] Respiratory rate 2019-10-04 18 /min University of 15:31:00 [facility] Oxygen saturation 2019-10-04 95 /min University of in Arterial blood 15:31:00 [facility] by Pulse oximetry Branch Body height 2019-10-02 180.3 cm University of 15:04:00 [facility] Body weight 2019-10-02 92.987 kg University of 15:04:00 [facility] BMI 2019-10-02 28.59 kg/m2 University of 15:04:00 [facility] Systolic blood 2019-09-19 155 mm[Hg] Nurse Notified University of pressure 20:00:00 [facility] Diastolic blood 2019-09-19 84 mm[Hg] Nurse Notified University of pressure 20:00:00 [facility] Heart rate 2019-09-19 66 /min University of 20:00:00 [facility] Body temperature 2019-09-19 36.89 Sayra University of 20:00:00 [facility] Respiratory rate 2019-09-19 18 /min University of 20:00:00 [facility] Oxygen saturation 2019-09-19 93 /min University of in Arterial blood 20:00:00 [facility] by Pulse oximetry Branch Body weight 2019-09-18 95.255 kg University of 18:00:00 [facility] Procedures Procedure Date / Time Performing Clinician Source Performed XR CHEST 1 VW 2022-04-06 17:21:22 Magui Durand [facility] RAPID INFLUENZA A/B 2022-04-06 17:19:00 Magui Durand [facility] COVID-19 (ID NOW RAPID 2022-04-06 17:19:00 Magui Durand [facility] TESTING) [facility] CONSENT/REFUSAL FOR 2022-04-06 16:53:46 Doctor Unassigned, [facility] DIAGNOSIS AND TREATMENT [place] [facility] CTA ABDOMEN 2021-05-30 11:12:00 Sophie [facility] CTA CHEST 2021-05-30 11:12:00 Rai [facility] POCT-CREATININE 2021-05-30 10:48:00 Sophie [facility] AUTHORIZATION FOR RELEASE 2020-09-26 05:01:00 Doctor Unasswilliam, [facility] [place] [facility] CT ABDOMEN PELVIS WO 2020-09-07 19:44:32 Esau [facility] BASIC METABOLIC PANEL (NA, 2020-09-07 19:34:00 Esau [facility] K, CL, CO2, GLUCOSE, BUN, Medica l Branch CREATININE, CA) CBC WITH DIFF 2020-09-07 19:34:00 [facility]IN[facility]IS 2020-09-07 19:34:00 Esau [facility] NOTICE OF PRIVACY 2020-09-07 18:36:16 Doctor Unarahel, [facility] PRACTICES [place] [facility] CONSENT/REFUSAL FOR 2020-09-07 18:33:17 Doctor Francy [facility] DIAGNOSIS AND TREATMENT [place] [facility] [place] CT ABDOMEN PELVIS WO 2020-05-18 11:19:39 Lucio William [facility] Medical Branch LIPASE 2020-05-18 10:35:00 Lucio William [facility] COMP. METABOLIC PANEL 2020-05-18 10:35:00 Lucio William [facility] ([id number]) Medical [place] CBC WITH DIFF 2020-05-18 10:35:00 Lucio William [facility] URINALYSIS 2020-05-18 10:35:00 Lucio William [facility] CONSENT/REFUSAL FOR 2020-05-18 10:21:27 Doctor Francy [facility] DIAGNOSIS AND TREATMENT [place] [facility] CONSENT/REFUSAL FOR 2020-05-02 16:17:09 Doctor Francy [facility] DIAGNOSIS AND TREATMENT [place] [facility] NO SHOW OR MISSED 2020-02-17 13:29:26 Doctor Unassigned, [facility] APPOINTMENT POLICY [place] [facility] h ACKNOWLEDGEMENT LIPASE 2019-12-29 19:18:00 Monica Scott [facility] HEPATIC FUNCTION PANEL 2019-12-29 19:18:00 Monica Scott [facility] ([id number]) (ALB,T.PRO,BILI Medical Branch T,BU/BC,ALT,AST,ALK PHOS) BASIC METABOLIC PANEL (NA, 2019-12-29 19:18:00 Monica [facility] K, CL, CO2, GLUCOSE, BUN, Medica l Branch CREATININE, CA) CBC WITH DIFFERENTIAL 2019-12-29 19:18:00 Monica Scott [facility] CT ABDOMEN PELVIS WO 2019-12-29 19:06:[address] [facility] URINALYSIS 2019-12-29 17:56:00 Evaristo [facility] NOTICE OF PRIVACY 2019-12-29 17:44:37 Doctor Francy, [facility] PRACTICES [place] [facility] CONSENT/REFUSAL FOR 2019-12-29 17:44:21 Doctor Unarahel, [facility] DIAGNOSIS AND TREATMENT [place] [facility] [place] LIPASE 2019-10-04 09:05:00 Elver Matthew [facility] acute [facility] HEPATIC FUNCTION PANEL 2019-10-04 09:05:00 Mathtew Raya [facility] ([id number]) (ALB,T.PRO,[facility] Medical Branch T,BU/BC,ALT,AST,ALK PHOS) URINALYSIS 2019-10-03 22:11:00 Matthew Raya [facility] acute hospital LIPASE 2019-10-03 07:48:00 Lyric Flores [facility] TROPONIN I 2019-10-03 07:48:00 Lyric Flores [facility] BASIC METABOLIC PANEL (NA, 2019-10-03 07:48:00 [facility]ric [facility] K, CL, CO2, GLUCOSE, BUN, Medica l Branch CREATININE, CA) CBC WITH DIFFERENTIAL 2019-10-03 07:48:00 [facility] 2019-10-02 22:01:00 Lyric Flores [facility] ECHO ROUTINE W/DOPPLER 2019-10-02 16:14:14 Matthew Raya [facility] COLOR [facility] TROPONIN I 2019-10-02 15:53:00 Lyric Flores [facility] LIPID PANEL ([id number])(TOTAL 2019-10-02 15:53:00 Maeve [facility] CHOLESTEROL, [facility] TRIGLYCERIDES, HDL) HB ABO GROUPING 2019-10-02 12:30:00 Errol [facility] o f [facility] CT ANGIOGRAM CHEST 2019-10-02 11:40:38 Lucio William [facility] CT ANGIOGRAM 2019-10-02 11:40:38 Lucio [facility] ABDOMEN/PELVIS [facility] XR CHEST 1 VW 2019-10-02 10:18:25 Lucio William [facility] CORONAVIRUS COVID-19 2019-10-02 10:15:00 Lucio William [facility] TESTING [facility] LIPASE 2019-10-02 09:46:00 Lucio William [facility] MAGNESIUM 2019-10-02 09:46:00 Lyric Flores [facility] TROPONIN I 2019-10-02 09:46:00 Lucio William [facility] THYROID STIMULATING 2019-10-02 09:46:00 Lyric Flores [facility] HORMONE [facility] COMP. METABOLIC PANEL 2019-10-02 09:46:00 Lucio [facility] ([id number]) [facility] CBC WITH DIFFERENTIAL 2019-10-02 09:46:00 Lucio William [facility] GLYCOSYLATED HEMOGLOBIN 2019-10-02 09:46:00 Lyric [facility] (A1C) [facility] PROTHROMBIN TIME / INR 2019-10-02 09:46:00 Lucio William [facility] N-TERMINAL PRO-BNP 2019-10-02 09:46:00 Lucio William [facility] EKG-12 LEAD 2019-10-02 09:41:28 Lucio William [facility] EKG-12 LEAD 2019-10-02 09:30:21 Lucio William [facility] BASIC METABOLIC PANEL (NA, 2019-09-19 13:35:00 [facility] K, CL, CO2, GLUCOSE, BUN, Medica l Branch CREATININE, CA) CBC WITH DIFFERENTIAL 2019-09-19 13:35:00 Fiorella Gerard [facility] BASIC METABOLIC PANEL (NA, 2019-09-18 12:33:00 Fiorella Gerard U [facility] K, CL, CO2, GLUCOSE, BUN, Medica l Branch CREATININE, CA) CBC WITH DIFFERENTIAL 2019-09-18 10:15:00 Karley [facility] ABORH CONFIRMATION 2019-09-17 21:50:00 Amena [facility] PHOSPHORUS 2019-09-17 21:23:00 Amena [facility] MAGNESIUM 2019-09-17 21:23:00 Amena [facility] BASIC METABOLIC PANEL (NA, 2019-09-17 21:23:00 Amena, [facility] K, CL, CO2, GLUCOSE, BUN, Medica l Branch CREATININE, CA) CBC WITH DIFFERENTIAL 2019-09-17 21:23:00 Amena [facility] PROTHROMBIN TIME / INR 2019-09-17 21:23:00 Amena [facility] acute hospital ACTIVATED PARTIAL THRMPLAS 2019-09-17 21:23:00 Amena [facility] FIBRINOGEN 2019-09-17 21:23:00 Amena [facility] HB ABO GROUPING 2019-09-17 21:20:00 Toribio [facility] CT ANGIOGRAM CHEST 2019-09-17 21:15:02 Andrew Santana [facility] Plan of Care Planned Activity Planned Date Details Comments Source Future Scheduled 2022-10-01 Lipid panel (procedure) [facility] 00:00:00 [code = 64461018] Medical Ce nter Future Scheduled 2022-02-15 INFLUENZA VACCINE (#1) [facility]00 [code = INFLUENZA Medical Ce nter VACCINE (#1)] Future Scheduled 2021-06-[address] [facility] 00:00:00 (12+) [code = [facility] Center DEPRESSION SCREENING (12+)] Future Scheduled 2021-02-03 COVID-19 VACCINE (3 - [facility] 00:[facility]00 Booster for Pfizer Medical C enter series) [code = COVID-19 VACCINE (3 - Booster for Pfizer series)] Future Scheduled 2011 SHINGLES VACCINES ([address] [facility] 00:00:00 2) [code = SHINGLES Medical Center VACCINES (1 of 2)] Future Scheduled 1980-01-31 DTAP/TDAP/TD VACCINES [facility] 00:00:00 (1 - Tdap) [code = Medical C enter DTAP/TDAP/TD VACCINES (1 - Tdap)] Future Scheduled [address] [facility] 00:00:00 0-64 YRS (1 - PCV) Medical C enter [code = PNEUMOCOCCAL VACCINE 0-64 YRS (1 - PCV)] Future Scheduled 1961 CT Colonography (combo) [facility] 00:00:00 [code = CT Colonography [facility] (combo)] Future Scheduled 1961 Screening for malignant [facility] 00:00:00 neoplasm of colon Medical Ce nter (procedure) [code = 629933125] Future Scheduled 1961 Screening for malignant [facility] 00:00:00 neoplasm of colon Medical Ce nter (procedure) [code = 467923447] Future Scheduled 1961 Screening for malignant [facility] 00:00:00 neoplasm of colon Medical Ce nter (procedure) [code = 770754158] Future Scheduled 1961 Screening for malignant [facility] 00:00:00 neoplasm of colon Medical Ce nter (procedure) [code = 509787799] Future Scheduled 1960 Sigmoidoscopy [code = [facility] Sigmoidoscopy] Medical Cente r Encounters Start End Encounter Admission Attending Care Care Encounter Source Date/Time Date/Time Type Type Clinicians Facility Department ID 2022-03-14 Outpatient DELMIS Egan [facility] [id number] Common 12:17:[address] [facility] 2022-02-01 Outpatient Chava [facility] [id number] Common 08:58:[address] [facility] 2021-11-16 [facility] [id number] Common 15:44:[address] [facility] 2021-07-12 Outpatient Chava [facility] [id number] Common 13:59:[id number] [facility] 2021-04-16 Outpatient [facility] SUU [id number] Univers 10:12:44 BILAL ity of [facility] 2021-04-16 Emergency [facility] [id number] Univers 08:13:45 ity of [facility] 2021-04-15 Emergency [facility] [id number] Univers 23:50:43 ity of [facility] 2021-04-15 Emergency [facility] [id number] Univers 08:38:18 ity of [facility] 2021-04-15 Emergency [facility] [id number] Univers 05:44:19 ity of [facility] 2021-04-14 Emergency [facility] [id number] Univers 06:39:57 ity of [facility] 2021-03-26 Inpatient IKER BAZZI Surgery [id number] [facility] 08:51:05 SUZANNA 2021-03-25 Inpatient ER [facility] Cardiovascu [id number] [facility] 17:23:25 lindsey VO 2021-03-25 Outpatient ER [facility] Internal [id number] 17:21:05 [facility] 2022-04-06 2022-04-06 Emergency X KIZZY [facility] ERT [id number] Univers 12:00:00 13:10:00 MAGUI tro[facility]tery [facility] 2022-04-06 2022-04-06 Emergency [facility] [id number] [facility] 12:00:00 13:10:00 Magui [place] [facility] [id number] rose marieGiul[facility]UNITED [facility] [id number] [facility] [phone] [place] [address] Branch 2022-03-13 2022-03-13 (TEL) STLMLC STLMLC [id number] Co mmon 00:00:00 00:00:00 [facility] 2022-02-26 2022-02-26 OFFICE STLMLC STLMLC [id number] Co mmon 00:00:00 00:00:00 VISIT Spirit ESTAB PT - [facility] LEVEL 4 [facility] 2022-02-01 2022-02-01 (TEL) STLMLC STLMLC [id number] Co mmon 00:00:00 00:00:00 [facility] 2021-11-17 2021-11-17 (TEL) STLMLC STLMLC [id number] Co mmon 00:00:00 00:00:00 [facility] 2021-11-09 2021-11-09 (TEL) STLMLC STLMLC [id number] Co mmon 00:00:00 00:00:00 [facility] 2021-08-15 2021-08-15 OFFICE STLMLC STLMLC [id number] Co mmon 00:00:00 00:00:00 VISIT EST Spir it PT LEVEL 3 - [facility] 2021-08-11 2021-08-11 (TEL) STLMLC STLMLC [id number] Co mmon 00:00:00 00:00:00 [facility] 2021-05-30 2021-05-30 [facility] Christiano Rai [facility] [id number] 10:27:56 23:59:00 Encounter 1, [facility] 2021-05-30 2021-05-30 Outpatient CHRISTIANO RAI [facility] SLE [id number] SLE 10:27:56 23:59:00 2021-05-30 2021-05-30 Hospital Christiano Rai [facility] [id number] [facility] 10:26:13 10:26:13 Encounter 1 [facility] 2021-05-30 2021-05-30 Outpatient EL CHRISTIANO RAI SLE [id number] SLE 10:26:13 10:26:13 2021-05-30 2021-05-30 Outpatient ROSE MARY SLE SLE [id number] SLE 00:00:00 00:00:00 SUZANNA 2021-05-10 2021-05-10 Orders Christiano Rai [facility] [id number] [facility] 00:00:00 00:00:00 Only [facility] 2021-03-17 2021-03-20 Inpatient EL ROSE MARY SLE Surgery [id number] SLEH 05:21:00 16:12:00 SUZANNA 2021-03-17 2021-03-17 Outpatient [facility] [id number] [place] [address] 05:21:00 23:59:00 Salvatore 2021-03-16 2021-03-16 Outpatient EL SLEH SLE [id number] [facility]H 00:00:00 00:00:00 2021-03-16 2021-03-16 Outpatient EL SLEH SLEH [id number] [facility]H 00:00:00 00:00:00 2021-03-15 2021-03-15 Outpatient SLEH SLEH [id number] [facility]H 00:00:00 00:00:00 2021-02-02 2021-02-02 Outpatient EL SLEH SLEH [id number] [facility]H 00:00:00 00:00:00 2021-01-31 2021-01-31 Outpatient EL SLEH SLEH [id number] [facility]H 00:00:00 00:00:00 2021-01-23 2021-01-23 Outpatient CHRISTIANO RAI SLE SLEH [id number] [facility] 00:00:00 00:00:00 2021-01-23 2021-01-23 Outpatient CHRISTIANO RAI SLE SLEH [id number] SLEH 00:00:00 00:00:00 2021-01-23 2021-01-23 Outpatient EL RAI, CHRISTIANO SLEJordana SLEH [id number] [facility]H 00:00:00 00:00:00 2020-12-30 2020-12-30 Outpatient RAI, CHRISTIANO SLEJordana SLEH [id number] SLEH 00:00:00 00:00:00 2020-12-30 2020-12-30 Outpatient RAI, CHRISTIANO SLEJordana SLEH [id number] SLEH 00:00:00 00:00:00 2020-12-30 2020-12-30 Outpatient EL RAI, CHRISTIANO SLEJordana SLEH [id number] SLEH 00:00:00 00:00:00 2020-12-26 2020-12-26 Outpatient RAI, CHRISTIANO SLEJordana SLEH [id number] SLEH 00:00:00 00:00:00 2020-12-26 2020-12-26 Outpatient RAI, CHRISTIANO SLEJordana SLEH [id number] SLEH 00:00:00 00:00:00 2020-12-26 2020-12-26 Outpatient EL RAI, CHRISTIANO SLEJordana SLEH [id number] SLEH 00:00:00 00:00:00 2020-11-29 2020-11-29 Outpatient EL ROSE MARY, SLE SLEH [id number] SLEH 00:00:00 00:00:00 SUZANNA 2020-11-21 2020-11-21 Outpatient EL SLEH SLEH [id number] [facility]H 00:00:00 00:00:00 2020-11-03 2020-11-03 Outpatient EL SLEH SLEH [id number] SLEH 00:00:00 00:00:00 2020-10-14 2020-10-15 Outpatient E RAUL [facility] [id number] [place] 23:06:00 13:36:00 [facility] 2020-10-03 2020-10-03 Aylin Stauffer [id number] Univers 00:00:00 00:00:00 Management Rigoberto Mast [id number] Dory[place] 4.2.7.2.686 Shawn hyde [phone] [facility] 086 Branch 2020-09-26 2020-09-26 Orders Doctor GLO 1.2.840.114 [id number] Univers 00:00:00 00:00:00 Only Unassigned, HARSHAD [id number] ity of [place] [facility] 4.2.7.2.686 [facility] [phone] [facility] 009 Branch 2020-09-19 2020-09-19 Outpatient R [facility] [id number] Univers 16:15:00 16:15:00 ity of [facility] 2020-09-19 2020-09-19 Telephone [facility] [id number] Univers 00:00:00 00:00:00 Bilal HEALTH [id number] it y of [place] 4.2.7.2.686 [facility] [phone] Medi fox Primary & 204 Branch Specialty Care 2020-09-16 2020-09-16 Telephone [facility] [id number] [id number] Univers 00:00:00 00:00:00 Bilal HEALTH [id number] it [place] of [place] [address] [place] [address] [phone] Medi fox Primary & 204 Branch Specialty Care 2020-09-16 2020-09-16 Telephone [facility] [id number] [id number] Univers 00:00:00 00:00:00 Bilal HEALTH [id number] it [place] [address] [place] [address] [phone] Medi fox Primary & 204 Branch Specialty Care 2020-09-15 2020-09-15 Outpatient R [facility] [id number] Univers 15:15:00 16:41:28 BILAL ity of [facility] 2020-09-15 2020-09-15 Office [facility] 1.2.840.114 [id number] Univers 15:13:05 16:41:28 Visit Bilal HEALTH [id number] it [place] of [place] [address] [place] [address] [phone] Medi fox Primary & 204 Branch Specialty Care 2020-09-15 2020-09-15 Outpatient R OMID [facility] [id number] Univers 15:15:00 15:15:00 BILAL ity [facility] 2020-09-07 2020-09-07 Emergency [facility] 1.2.840.114 [id number] Univers 13:52:00 16:59:00 Lakeisha Godinez [id number] i ty [facility] 4.2.7.2.686 [facility] [phone] [facility] 084 Branch 2020-09-07 2020-09-07 Outpatient [facility] [id number] Univers 13:40:00 13:40:00 TIBURCIO trottery o f [facility] 2020-09-07 2020-09-07 Telephone [facility] [id number] Univers 00:00:00 00:00:00 Tiburcio Godinez [id number] [facility] 4.2.7.2.686 [facility] [phone] Il dical nal 059 Branch [facility] 2020-09-03 2020-09-03 Outpatient [facility] [id number] Univers 08:35:00 08:35:00 ity [facility] 2020-08-22 2020-08-22 Telephone [facility] [id number] Univers 00:00:00 00:00:00 [facility] [id number] [facility] 4.2.7.2.686 [facility] [phone] [facility] Primary & 204 Branch Specialty Care 2020-08-16 2020-08-16 Outpatient Kalpana ASIM [facility] [id number] Univers 10:40:00 10:40:00 TIBURCIO trottery o f [facility] 2020-08-13 2020-08-13 Outpatient [facility] [id number] Univers 09:15:00 09:15:00 ity [facility] 2020-08-08 2020-08-08 Transition Aylin Castaneda 1.2.840.114 [id number] Univers 00:00:00 00:00:00 of Care Christie Mast [id number] ity of [place]7.2.686 [place] [phone] [facility] [address] [place] 2020-08-02 2020-08-02 Telephone PcpGLO [id number] Univers 00:00:00 00:00:00 Patient HARSHAD [id number] it y of [place] Not HOSPITAL [place].7.2.686 [place] [phone] [facility] [address] [place] 2020-05-18 2020-05-18 Emergency Critical access hospital [id number] [id number] Univers 04:25:00 07:25:00 Lucio Godinez [id number] ity of [place].2.[place] [phone] [place] 069514 [place] 2020-05-05 2020-05-05 [facility] 1.2.840.114 [id number] Univers 00:00:00 00:00:00 Tiburcio Godinez [id number] [place] of [place].2.[place] [phone] [place] 468839 [facility] 2020-05-03 2020-05-03 Nurse GLO Alfred 1.2.840.114 [id number] Univers 00:00:00 00:00:00 Triage Bella VALDEZ 350.1.13.10 it y of HOSPITAL 4.2.7.2.686 Hakeem as [phone] [address] 2020-05-02 2020-05-02 Emergency [facility] 1.2.840.114 [id number] Univers 10:26:00 12:20:00 Chaparro Godinez 350.1.13.10 ity of [place].2.[place] [phone] [address] 2020-02-23 2020-02-23 Letter GLO Garcia 1.2.840.114 [id number] Univers 00:00:00 00:00:00 (Out) Patient HARSHAD 350.1.13.10 it y of Does Not HOSPITAL 4.2.7.2.686 [place] [phone] [facility] [address] [place] 2020-02-17 2020-02-17 Office [facility] 1.2.840.114 [id number] Univers 08:29:58 09:17:07 Visit Tiburcio Godinez [id number] ity of [place] [phone] [place] 468839 [facility] 2020-02-17 2020-02-17 Outpatient R [facility] [id number] Univers 09:00:00 09:00:00 TIBURCIO chang f [facility] 2020-02-17 2020-02-17 Orders Doctor GLO 1.2.840.114 [id number] Univers 00:00:00 00:00:00 Only Unassigned, HARSHAD 350.1.13.10 ity of [place] [facility]OSPITAL 4.2.7.2.686 Hakeem as [phone] [facility] [address] [place] 2020-02-05 2020-02-05 Telephone [facility] [id number] [id number] Univers 00:00:00 00:00:00 Tiburcio Godinez 350.1.13.10 it[place] of [place] [phone] [address] 2020-01-26 2020-01-26 Outpatient R [facility] [id number] Univers 11:00:00 11:00:00 TIBURCIO delgadillo o f [facility] 2019-12-29 2019-12-29 Emergency [facility] [id number] [id number] Univers 12:54:22 17:50:00 Monica Godinez 350.1.13.10 ity of [place].2.[place] [phone] [facility] [address] [place] 2019-12-29 2019-12-29 Orders Doctor CODY 1.2.840.114 [id number] Univers 00:00:00 00:00:00 Only Unassigned, HARSHAD 350.1.13.10 ity of [place] HOSPITAL 4.2.7.2.686 Hakeem as [phone] [facility] [address] [place] 2019-10-28 2019-10-28 Telephone [facility] [id number] [id number] Univers 00:00:00 00:00:00 Tiburcio Godinez 350.1.13.10 it[place] of [place] [phone] Il dical nal 9 [facility] 2019-10-20 2019-10-20 Outpatient [facility] [id number] Univers 13:20:00 13:20:00 TIBURCIO delgadillo o f [facility] 2019-10-20 2019-10-20 Telemedici [facility] 1.2.840.114 [id number] Univers 08:04:05 08:24:05 ne Visit Tiburcio Godinez 350.1.13.10 it[place] of [place] [phone] Il dical nal [address] [place] [address] 2019-10-07 2019-10-07 Telephone [facility] 1.2.558.756 [id number] Univers 00:00:00 00:00:00 Tiburcio Godinez 350.1.13.10 it[place] of [place] [phone] Il dical nal [address] [place] [address] 2019-10-02 2019-10-04 Emergency Lucio William S [facility] 1.2.840 .114 [id number] Univers 04:29:19 15:49:00 Evaristo Norton 350.1.13.10 ity of [place] 4.2.7.2.686 [facility] [phone] [facility] [address] [place] 2019-10-02 2019-10-04 Outpatient X [facility] [id number] Univers 04:29:19 15:49:00 MATTHEW ity [facility] 2019-10-01 2019-10-01 Telephone [facility] [id number] [id number] Univers 00:00:00 00:00:00 Tiburcio Godinez 350.1.13.10 it[place] of [place] [phone] Il dical nal 059 [facility] 2019-09-29 2019-09-29 Outpatient R ASIM [facility] [id number] Univers 09:20:00 09:20:00 TIBURCIO ity o f [facility] 2019-09-29 2019-09-29 Telemedici [facility] 1.2.840.114 [id number] Univers 07:56:52 08:16:52 ne Visit Tiburcio Godinez 350.1.13.10 ity of [place] [phone] Il dictn nal 059 [facility] 2019-09-23 2019-09-23 Telephone Andrew Santana 1.2.840.114 [id number] Univers 00:00:00 00:00:00 Y HEALTH 350.1.13.10 i ty of CL[place].2.[place] [phone] [facility] 185 [address] 2019-09-22 2019-09-22 Nurse PcpGLO 1.2.840.114 [id number] Univers 00:00:00 00:00:00 Triage Patient HARSHAD 350.1.13.10 it y of Does [facility] [place].2.7.2.686 [place] [phone] [facility] [address] [place] 2019-09-21 2019-09-21 [facility] 1.2.840.114 [id number] Univers 00:00:00 00:00:00 Rogelio T SPECIALTY 350.1.13.10 it[place]2.[place] [phone] Il dical VICTORY [address] [place] 2019-09-20 2019-09-20 Transition Aylin Castaneda 1.2.840.114 [id number] Univers 00:00:00 00:00:00 of Care Christie Mast [id number] ity [place] [id number] [phone] [facility] [address] Branch 2019-09-17 2019-09-19 Inpatient U JOHN DEL CID, [facility] S[facility] [id number] Univers 15:50:00 16:48:00 SANDEEP ity o f [facility] Branch 2019-09-17 2019-09-19 [facility] Dipika Lopez [id number] Univers 15:50:00 16:48:00 Encounter Sandeep Valdez [id number] ity [facility] [id number] Hakeem as [phone] [place] [id number] Branch Results Test Description Test Time Test Comments Results Result [facility] e Comments CT, CTA, ABDOMEN, 2021-05-30 Unlisted ANGIO PROTOCOL 17:13:00 Reason for Exam - Click [facility] Yes and Enter [facility] Reason CENTERName: RYAN, Below->YesAdriana GLOVER : sted Reason 1960 Sex: for Exam->s/p M TEVAR FINAL REPORT EXAM: CTA of CHEST AND ABDOMEN WITH IV CONTRASTDATE: 05/30/2021 11:13 AM INDICATION: Aortic dissection post repairCOMPARISON: CTA chest abdomen pelvis, 03/18/2021TECHNIQUE: The chest, abdomen and pelvis were scanned using a multidetector helical scanner. Coronal and sagittal reformations were obtained. CTA protocol performed. For optimization of anatomic evaluation, multiplanar reconstruction, maximum intensity projections, and advanced 3-D off-line postprocessing were performed on a dedicated stand-alone workstation under the direct supervision of the interpreting physician.IV Contrast: 100 cc Isovue-370Oral Contrast: NoneRadiation Dose: Total DLP 3386.45 mGy*cmEstimated effective dose: DLP x 0.015 x size factorCTDIvol has been reviewed. It is below the limits set by the Radiation Protocol Committee (RPC). FINDINGS: VASCULAR WITH ADVANCED 3-D OFF-LINE POSTPROCESSING: Measurements of the aorta obtained orthogonal to the longitudinal axis on reconstruction views are as follows: 2.8 cm at the level of the aortic annulus3.7 x 3.9 cm at the level of the sinuses of Valsalva3.5 cm in the mid ascending aorta3.2 cm in the mid aortic arch3.6 cm in the proximal descending aorta5.5 cm in the mid descending aorta4.7 cm at the level of the diaphragmatic hiatus4.8 cm at the level of the celiac trunk3.8 cm at the level of the superior mesenteric artery3.4 cm at level of the renal arteries4.0 cm just above the level of the bifurcation Thoracic Aorta and proximal branches: There is no dissection in the ascending aorta or aortic arch. There is direct origin of the left vertebral artery from the aortic arch. A stent graft extends from the origin of the left subclavian artery to the distal descending aorta. An aneurysmal sac surrounds the stent graft. At the proximal descending thoracic aorta, the overall aneurysm measures 6.1 x 5.0 cm on series 2, image 62 (measured comparably, 5.8 x 4.8 cm previously). More distally the aneurysm sac measures approximately 6.4 x 5.1 cm on axial image 101 (previous 5.7 x 4.9 cm at a similar location). There is continued filling of the aneurysm sac from the dissection inferiorly although the flow stream appears smaller than on the previous exam. Abdominal Aorta and proximal branches:Below the stent graft there is dissection of the abdominal aorta, similar to the previous exam. 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 This is also unchanged. The SMA is patent and originates from the true lumen the BEAN also originates from the true lumen. As noted on the previous exam, the left renal artery originates from the true lumen and is patent. As previously noted there are 3 right renal arteries originating from the false lumen superiorly, the true lumen inferiorly in the middle artery originates from both the true and false lumens. The abdominal aortic dissection terminates at the level of the aortic bifurcation with both common iliac arteries patent. NON-VASCULAR FINDINGS: LUNGS AND AIRWAYS: Mild centrilobular emphysematous change. No pulmonary consolidation. Atelectasis at the lung bases has resolved. There is a 1.0 cm subpleural nodule at the dome of the right diaphragm, unchanged from previous exam (axial image 93).PLEURA: No pleural effusion or pneumothorax. HEART/MEDIASTINUM: Heart size is normal with no pericardial effusion. Main pulmonary artery measures 2.9 cm, normal. Included portions of the thyroid unremarkable. No mediastinal lymphadenopathy identified. LIVER: Liver appears nodular and likely cirrhotic, unchanged. The arterially enhancing hepatic lesions noted previously are somewhat less apparent due to differences in bolus timing. Ill-defined hypodensities in the liver are again noted.BILIARY: The gallbladder is unremarkable. No ductal dilatation. SPLEEN: Mild splenomegaly.PANCREAS: No masses aneurysm of the abdominal aorta ADRENALS: No nodulesKIDNEYS: Symmetric renal enhancement. Multiple nonobstructing intrarenal calculi bilaterally as previously noted. Small hyperdense inferior left renal cyst again noted. Bilateral renal cysts are again seen. GI TRACT: Included portions of the bowel show no evidence for wall thickening or dilatation. PERITONEUM/RETROPERITO NEUM: No pneumoperitoneum or ascites.LYMPH NODES: No dominant lymph node mass seen in the abdomen or retroperitoneum. Scattered small periaortic nodes are present. SOFT TISSUES: Superficial surrounding soft tissue unremarkable. A small fat-containing ventral hernia is seen above the umbilicus.BONES: No acute or suspicious bony lesions. Previously noted catheter in the spinal canal is no longer seen. IMPRESSION: 1. Descending thoracic aortic stent graft again noted, stable in position. The surrounding aneurysm cavity appears minimally larger than previous exam measuring up to 6.1 cm, with continued although reduced flow into the aneurysm cavity from dissection below. 2. Abdominal aortic aneurysm again noted measuring up to 4.4 cm at the origin of the celiac artery. The dissection of the abdominal aorta extends down to the bifurcation level, unchanged from last exam.. 3. The chest again shows emphysematous changes. Main pulmonary artery is not dilated. 4. The liver appears cirrhotic as on last exam. The arterially hyperenhancing masses previously noted are less apparent due to differences in bolus timing. Additional evaluation with MRI liver mass protocol may be of value. Signed: Rosalba Elias Verified Date/Time: 05/30/2021 17:13:41 Reading Location: [facility] Reading Room [address] [place] [address] , CTA, CHEST 2021-05-30 17:13:00 [facility] : 1960 Sex: M FINAL REPORT EXAM: CTA of CHEST AND ABDOMEN WITH IV CONTRASTDATE: 05/30/2021 11:13 AM INDICATION: Aortic dissection post repairCOMPARISON: CTA chest abdomen pelvis, 03/18/2021TECHNIQUE: The chest, abdomen and pelvis were scanned using a multidetector helical scanner. Coronal and sagittal reformations were obtained. CTA protocol performed. For optimization of anatomic evaluation, multiplanar reconstruction, maximum intensity projections, and advanced 3-D off-line postprocessing were performed on a dedicated stand-alone workstation under the direct supervision of the interpreting physician.IV Contrast: 100 cc Isovue-370Oral Contrast: NoneRadiation Dose: Total DLP 3386.45 mGy*cmEstimated effective dose: DLP x 0.015 x size factorCTDIvol has been reviewed. It is below the limits set by the Radiation Protocol Committee (RPC). FINDINGS: VASCULAR WITH ADVANCED 3-D OFF-LINE POSTPROCESSING: Measurements of the aorta obtained orthogonal to the longitudinal axis on reconstruction views are as follows: 2.8 cm at the level of the aortic annulus3.7 x 3.9 cm at the level of the sinuses of Valsalva3.5 cm in the mid ascending aorta3.2 cm in the mid aortic arch3.6 cm in the proximal descending aorta5.5 cm in the mid descending aorta4.7 cm at the level of the diaphragmatic hiatus4.8 cm at the level of the celiac trunk3.8 cm at the level of the superior mesenteric artery3.4 cm at level of the renal arteries4.0 cm just above the level of the bifurcation Thoracic Aorta and proximal branches: There is no dissection in the ascending aorta or aortic arch. There is direct origin of the left vertebral artery from the aortic arch. A stent graft extends from the origin of the left subclavian artery to the distal descending aorta. An aneurysmal sac surrounds the stent graft. At the proximal descending thoracic aorta, the overall aneurysm measures 6.1 x 5.0 cm on series 2, image 62 (measured comparably, 5.8 x 4.8 cm previously). More distally the aneurysm sac measures approximately 6.4 x 5.1 cm on axial image 101 (previous 5.7 x 4.9 cm at a similar location). There is continued filling of the aneurysm sac from the dissection inferiorly although the flow stream appears smaller than on the previous exam. Abdominal Aorta and proximal branches:Below the stent graft there is dissection of the abdominal aorta, similar to the previous exam. 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 This is also unchanged. The SMA is patent and originates from the true lumen the BEAN also originates from the true lumen. As noted on the previous exam, the left renal artery originates from the true lumen and is patent. As previously noted there are 3 right renal arteries originating from the false lumen superiorly, the true lumen inferiorly in the middle artery originates from both the true and false lumens. The abdominal aortic dissection terminates at the level of the aortic bifurcation with both common iliac arteries patent. NON-VASCULAR FINDINGS: LUNGS AND AIRWAYS: Mild centrilobular emphysematous change. No pulmonary consolidation. Atelectasis at the lung bases has resolved. There is a 1.0 cm subpleural nodule at the dome of the right diaphragm, unchanged from previous exam (axial image 93).PLEURA: No pleural effusion or pneumothorax. HEART/MEDIASTINUM: Heart size is normal with no pericardial effusion. Main pulmonary artery measures 2.9 cm, normal. Included portions of the thyroid unremarkable. No mediastinal lymphadenopathy identified. LIVER: Liver appears nodular and likely cirrhotic, unchanged. The arterially enhancing hepatic lesions noted previously are somewhat less apparent due to differences in bolus timing. Ill-defined hypodensities in the liver are again noted.BILIARY: The gallbladder is unremarkable. No ductal dilatation. SPLEEN: Mild splenomegaly.PANCREAS: No masses aneurysm of the abdominal aorta ADRENALS: No nodulesKIDNEYS: Symmetric renal enhancement. Multiple nonobstructing intrarenal calculi bilaterally as previously noted. Small hyperdense inferior left renal cyst again noted. Bilateral renal cysts are again seen. GI TRACT: Included portions of the bowel show no evidence for wall thickening or dilatation. PERITONEUM/RETROPERITO NEUM: No pneumoperitoneum or ascites.LYMPH NODES: No dominant lymph node mass seen in the abdomen or retroperitoneum. Scattered small periaortic nodes are present. SOFT TISSUES: Superficial surrounding soft tissue unremarkable. A small fat-containing ventral hernia is seen above the umbilicus.BONES: No acute or suspicious bony lesions. Previously noted catheter in the spinal canal is no longer seen. IMPRESSION: 1. Descending thoracic aortic stent graft again noted, stable in position. The surrounding aneurysm cavity appears minimally larger than previous exam measuring up to 6.1 cm, with continued although reduced flow into the aneurysm cavity from dissection below. 2. Abdominal aortic aneurysm again noted measuring up to 4.4 cm at the origin of the celiac artery. The dissection of the abdominal aorta extends down to the bifurcation level, unchanged from last exam.. 3. The chest again shows emphysematous changes. Main pulmonary artery is not dilated. 4. The liver appears cirrhotic as on last exam. The arterially hyperenhancing masses previously noted are less apparent due to differences in bolus timing. Additional evaluation with MRI liver mass protocol may be of value. Signed: Rosalba Eliaseport Verified Date/Time: 05/30/2021 17:13:41 Reading Location: [facility] Reading Room [address] [place] [address] -Creatinine 2021-05-30 11:00:44 Test Item Value Reference Range Interpretation Comme [facility] POC-Creatinine (test code = 1.3 mg/dL 0.6-1.3 : TESTED AT [address] [address]9) [facility] [address]: Mathematics Lecturer/Techni martha ID = [id number] for GLO NEGRETE POC-EGFR (test code = 56 mL/min/1.73M2 19466-9) [facility]MBDU-[id number] 11:00:44 Test Item Value Reference Range Interpretation Comments POC-CREATININE 1.3 mg/dL 0.6-1.3 : TESTED AT [facility] ([facility]) ([facility] [address] [facility] code = 1859) A, [place] [address]: Mathematics Lecturer/Techni martha ID = [id number] for GLO NEGRETE POC-EGFR 56 mL/min/1.73M2 (BEAKER) (test code = 1860) RAD, CHEST, 1 VIEW, NON [id number] 07:21:00Reason for exam:->post opShould this be performed at the bedside?->Yes [facility] : 1960 Sex: MFINAL REPORT RAD, CHEST, 1 VIEW, NON DEPT INDICATION: post op COMPARISON: Prior day's exam FINDINGS: Portable frontal view of the chest. IMPRESSION: Support Lines: Central catheter hasbeen removed. Vascular graft remains. Lungs and pleura: Diffuse interstitial thickening, representing singly or in combination, interstitial edema and/or pneumonitis. Platelike atelectasis within the left lower lung. No significant pneumothorax. Heart and mediastinum: Stable contours. Additional findings: None. Signed: Genesis Fuller Verified Date/Time: 03/20/2021 07:21:45 Reading Location:[facility] Radiology Reading Room Electronically signed by: GENESIS FULLER MD on 2020 07:21 AMPROTHROMBIN TIME/[id number] 07:04:34 Test Item Value Reference Range Interpretation Comments PROTIME (BEAKER) 15.6 seconds 11.9-14.2 H (test code = 759) INR (BEAKER) (test 1.26 See_Comment [Automat ed message] code = 370) The system [employer] generated this result transmitted ref erence range: <=5.90. The reference range was not used to int erpret this result as normal/abnormal . RECOMMENDED COUMADIN/WARFARIN INR THERAPY RANGESSTANDARD DOSE: 2.0 - 3.0 Includes: PROPHYLAXIS for venous thrombosis, systemic embolization; TREATMENT for venous thrombosis and/or pulmonary embolus.HIGH RISK: Target INR is 2.5-3.5 for patients with mechanical heart valves.[id number] 07:02:51 Test Item Value Reference Range Interpretation Comments PHOSPHORUS (BEAKER) (test code = 1.6 mg/dL 2.3-4.7 L 604) Mathematics Lecturer ID - [id number] 07:02:51 Test Item Value Reference Range Interpretation Comments MAGNESIUM (BEAKER) (test code = 1.8 mg/dL 1.6-2.6 627) Mathematics Lecturer ID - DBBASIC METABOLIC [id number] 07:02:50 Test Item Value Reference Range Interpretation Comments SODIUM (BEAKER) 134 meq/L 136-145 L (test code = 381) POTASSIUM (BEAKER) 4.4 meq/L 3.5-5.1 (test code = 379) CHLORIDE (BEAKER) 103 meq/L 98-107 (test code = 382) CO2 (BEAKER) (test 25 meq/L 22-29 code = 355) BLOOD UREA NITROGEN 21 mg/dL 7-21 (BEAKER) (test code = 354) CREATININE (BEAKER) 0.98 mg/dL 0.57-1.25 (test code = 358) GLUCOSE RANDOM 119 mg/dL 70-105 H (BEAKER) (test code = 652) CALCIUM (BEAKER) 8.7 mg/dL 8.4-10.2 (test code = 697) EGFR (BEAKER) (test 78 mL/min/1.73 ESTIMA MELLY GFR IS code = 1092) sq m NOT ACCURATE CREATININE CLEARANCE IN PREDICTING GLOMERULAR FILTRATION RATE . ESTIMATED GFR I S NOT APPLICABLE FOR DIALYSIS PATIEN TS. Mathematics Lecturer ID - [id number] (HEMOGRAM ONLY)2021-03-20 06:33:29 Test Item Value Reference Range Interpretation Comments WHITE BLOOD CELL COUNT (BEAKER) 11.1 K/ L 3.5-10.5 H (test code = 775) RED BLOOD CELL COUNT (BEAKER) 3.60 M/ L 4.63-6.08 L (test code = 761) HEMOGLOBIN (BEAKER) (test code = 11.8 GM/DL 13.7-17.5 L 410) HEMATOCRIT (BEAKER) (test code = 35.2 % 40.1-51.0 L 411) MEAN CORPUSCULAR VOLUME (BEAKER) 97.8 fL 79.0-92.2 H (test code = 753) MEAN CORPUSCULAR HEMOGLOBIN 32.8 pg 25.7-32.2 H (BEAKER) (test code = 751) MEAN CORPUSCULAR HEMOGLOBIN CONC 33.5 GM/DL 32.3-36.5 (BEAKER) (test code = 752) RED CELL DISTRIBUTION WIDTH 13.1 % 11.6-14.4 (BEAKER) (test code = 412) PLATELET COUNT (BEAKER) (test code 68 K/CU MM 150-450 L = 756) MEAN PLATELET VOLUME (BEAKER) 9.3 fL 9.4-12.4 L (test code = 754) NUCLEATED RED BLOOD CELLS (BEAKER) 0 /100 WBC 0-0 (test code = 413) RAD, CHEST, 1 VIEW, NON [id number] 08:58:00Reason for exam:->post opShould this be performed at the bedside?->Yes [facility] CLEMENTSJERARDO ORTIZ BELEN : 1960 Sex: MFINAL REPORT TECHNIQUE: Frontal view of the chest. INDICATION: post op COMPARISON: 03/18/2021. FINDINGS: LINES/TUBES: Right IJ dialysis catheter tip terminates over the superior vena cava.. LUNGS: Mild increased linear bibasilar atelectasis. No focal consolidation.. PLEURA: No pneumothorax or significant pleural effusion. HEART AND MEDIASTINUM: The cardiomediastinal silhouette is stable. Status post repair of the descending thoracic aorta with stent graft. SOFT TISSUES AND BONES: Unremarkable. IMPRESSION:Mild increased bibasilar atelectasis.. Signed: Osmar Cantrell Verified Date/Time: 03/19/2021 08:58:28 Reading Location: [facility] C013Y CT Body Reading Room [id number] 05:21:44 Test Item Value Reference Range Interpretation Comments PHOSPHORUS (BEAKER) (test code = 1.8 mg/dL 2.3-4.7 L 604) Mathematics Lecturer ID - EAN [id number] 05:21:43 Test Item Value Reference Range Interpretation Comments MAGNESIUM (BEAKER) (test code = 1.9 mg/dL 1.6-2.6 627) Mathematics Lecturer ID - EAN WBASIC METABOLIC [id number] 05:21:43 Test Item Value Reference Range Interpretation Comments SODIUM (BEAKER) 134 meq/L 136-145 L (test code = 381) POTASSIUM (BEAKER) 4.2 meq/L 3.5-5.1 (test code = 379) CHLORIDE (BEAKER) 104 meq/L 98-107 (test code = 382) CO2 (BEAKER) (test 25 meq/L 22-29 code = 355) BLOOD UREA NITROGEN 19 mg/dL 7-21 (BEAKER) (test code = 354) CREATININE (BEAKER) 0.88 mg/dL 0.57-1.25 (test code = 358) GLUCOSE RANDOM 114 mg/dL 70-105 H (BEAKER) (test code = 652) CALCIUM (BEAKER) 8.4 mg/dL 8.4-10.2 (test code = 697) EGFR (BEAKER) (test 88 mL/min/1.73 ESTIMA MELLY GFR IS code = 1092) sq m NOT ACCURATE CREATININE CLEARANCE IN PREDICTING GLOMERULAR FILTRATION RATE . ESTIMATED GFR I S NOT APPLICABLE FOR DIALYSIS PATIEN TS. Mathematics Lecturer ID - EAN WPROTHROMBIN TIME/[id number] 05:02:41 Test Item Value Reference Range Interpretation Comments PROTIME (BEAKER) 15.7 seconds 11.9-14.2 H (test code = 759) INR (BEAKER) (test 1.27 See_Comment [Automat ed message] code = 370) The system [employer] generated this result transmitted ref erence range: <=5.90. The reference range was not used to int erpret this result as normal/abnormal . RECOMMENDED COUMADIN/WARFARIN INR THERAPY RANGESSTANDARD DOSE: 2.0 - 3.0 Includes: PROPHYLAXIS for venous thrombosis, systemic embolization; TREATMENT for venous thrombosis and/or pulmonary embolus.HIGH RISK: Target INR is 2.5-3.5 for patients with mechanical heart valves.CBC (HEMOGRAM ONLY)2021-03-19 04:55:57 Test Item Value Reference Range Interpretation Comments WHITE BLOOD CELL COUNT (BEAKER) 13.7 K/ L 3.5-10.5 H (test code = 775) RED BLOOD CELL COUNT (BEAKER) 3.59 M/ L 4.63-6.08 L (test code = 761) HEMOGLOBIN (BEAKER) (test code = 11.7 GM/DL 13.7-17.5 L 410) HEMATOCRIT (BEAKER) (test code = 34.5 % 40.1-51.0 L 411) MEAN CORPUSCULAR VOLUME (BEAKER) 96.1 fL 79.0-92.2 H (test code = 753) MEAN CORPUSCULAR HEMOGLOBIN 32.6 pg 25.7-32.2 H (BEAKER) (test code = 751) MEAN CORPUSCULAR HEMOGLOBIN CONC 33.9 GM/DL 32.3-36.5 (BEAKER) (test code = 752) RED CELL DISTRIBUTION WIDTH 13.2 % 11.6-14.4 (BEAKER) (test code = 412) PLATELET COUNT (BEAKER) (test code 61 K/CU MM 150-450 L = 756) MEAN PLATELET VOLUME (BEAKER) 9.3 fL 9.4-12.4 L (test code = 754) NUCLEATED RED BLOOD CELLS (BEAKER) 0 /100 WBC 0-0 (test code = 413) [id number] 11:00:51 Test Item Value Reference Range Interpretation Comments LIPASE (BEAKER) (test code = 749) 176 U/L 8-78 H Mathematics Lecturer ID - [id number] 11:00:50 Test Item Value Reference Range Interpretation Comments AMYLASE (BEAKER) (test 147 U/L 25-125 H Speci men moderately code = 349) hemolyzed Mathematics Lecturer ID - DBHEPATIC FUNCTION [id number] 11:00:49 Test Item Value Reference Range Interpretation Comments TOTAL PROTEIN (BEAKER) 7.1 gm/dL 6.0-8.3 Speci men moderately (test code = 770) hemolyzed ALBUMIN (BEAKER) (test 3.6 g/dL 3.5-5.0 Speci men moderately code = 1145) hemolyzed BILIRUBIN TOTAL 1.0 mg/dL 0.2-1.2 Specimen mod erately (BEAKER) (test code = hemoly zed 377) BILIRUBIN DIRECT 0.2 mg/dL 0.1-0.5 Specimen mo derately (BEAKER) (test code = hemoly zed 706) ALKALINE PHOSPHATASE 78 U/L 40-150 (BEAKER) (test code = 346) AST (SGOT) (BEAKER) 85 U/L 5-34 H Specimen moderately (test code = 353) hemolyzed ALT (SGPT) (BEAKER) 72 U/L 6-55 H Specimen moderately (test code = 347) hemolyzed Mathematics Lecturer ID - DBCTA, CHEST, ABDOMEN - PELVIS, FOR [id number] 09:40:00 Unlisted Reason for Exam - Click Yes and Enter Reason Below->No [facility] : 1960 Sex: MFINAL REPORT TECHNIQUE: CTA of the chest, abdomen, and pelvis WITHOUT and WITH intravenous contrast and WITHOUT oral contrast. Dose modulation, iterative reconstruction, and/or weight-based adjustment of the mA/kV was utilized to reduce the radiation dose to as low as reasonably achievable. INDICATION: Thoracic aorta disease, post repair (TEVAR), follow up. COMPARISON: CTA from 10/17/2020. FINDINGS: VASCULATURE: No dissection in the ascending thoracic aorta or aortic arch. A thoracic aortic stent graft extends from the takeoff of the left subclavian artery through the distal descending thoracic aorta. The aneurysmal sac measures up to 5.1 x 5.6 cm on axial image 90, previously 4.6 x5.6 cm. In addition, more distally, the aneurysmal sac measures up to 5.1 cm in diameter, previously4.9 cm. There is retrograde filling of the aneurysmal sac from the distal portion of the aortic dissection, likely due to a fenestration in the abdominal aorta as seen on axial image 230 and immediately superior to the takeoff of the right renal arteries. There is an additional, likely fenestration atthe takeoff of the middle right renal artery as seen on axial image 238. There are three right renalarteries. The most superior, diminutive right renal artery originates from the false lumen, the middle right renal artery originates from both the true and false lumens at the site of a fenestration, and the most inferior right renal artery originates from the true lumen. 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 This is similar to the previously surgical evaluation. The inferior mesenteric artery is patent. The celiac axis, superior mesenteric artery, and inferior mesenteric artery originate from the true lumen. An infrarenal abdominal aortic aneurysm with mural thrombus measures 4.1 cm in diameter, previously 3.9 cm LINES/TUBES: A partially visualized central venous catheter has its tip over the mid SVC. A catheter lies within the spinal canal. LUNGS AND AIRWAYS: Mild bibasilar atelectasis. Moderate bilateral centrilobular pulmonary emphysema.PLEURA: Trace left pleural effusion.HEARTAND MEDIASTINUM: The visualized thyroid gland is normal. No significant mediastinal, hilar, or axilla ry lymphadenopathy. The heart and pericardium are within normal limits. HEPATOBILIARY: Liver is nodular and cirrhotic. There are several arterially hyperenhancing observation scattered throughout the liver which measure up to 1.3 cm. An indeterminate area of hypodensity in the inferior portion of segment III measures 0.6 cm. Some of these are incompletely evaluated. Vicarious excretion of contrast inthe gallbladder. No biliary ductal dilatation.SPLEEN: 13.2 cm splenomegaly.PANCREAS: No focal massesor ductal dilatation. ADRENALS: No adrenal nodules.KIDNEYS/URETERS: No hydronephrosis or masses. There are multiple bilateral nonobstructing renal stones which measure up to 0.5 cm in the right lower pole. A mildly hyperdense left lower pole renal cyst measures 1.2 cm. No routine follow-up imaging is recommended. Hyperdense bilateral renal cysts measure up to 0.5 cm. Right-sided simple renal cysts measure up to 2.2 cm. No routine follow-up imaging is recommended for these findings. PELVIC ORGANS/BLAD DAINA: The bladder is decompressed by a Faith catheter. The bladder is decompressed by Faith catheter.PERITONEUM/RETROPERITONEUM: No free air or fluid. Moderate sized, fat filled supraumbilical ventral hernia.LYMPH NODES: No lymphadenopathy.VESSELS: Unremarkable. GI TRACT: No distention or wall thickeni ng. Reflux of fluid into the esophagus. Diverticulum of the second portion of the duodenum. BONES AND SOFT TISSUES: A catheter lies within the spinal canal. The stranding in the right groin is consistent with interspersed blood in the prior procedure. Mild leftward convex curvature of the lumbar spine. IMPRESSION: 1.Interval placement of a descending thoracic aortic stent graft. The false lumen is still patent and has retrograde filling through connections between the true and false lumen superior to the right renal arteries and at the takeoff of the middle right renal artery. The false lumen appears to have increased in size compared to the prior. Please see annotated images at the end of the study. 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 3.An abdominal aortic aneurysm measures 4.1 cm in diameter. A follow-up examination is recommended every 12 months. 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 4.Moderate sized fat filled supraumbilical ventral hernia. 5.Gastroesophageal reflux 6.Moderate pulmonary emphysema 7.Cirrhosis with splenomegaly. There are are several indeterminate arterially hyperenhancing liver observations. Further evaluation with a MRI of the abdomen with and without intravenous contrast is recommended to exclude metastatic carcinoma. 8.The multiple bilateral nonobstructingrenal stones measure up to 0.5 cm. Signed: Dorina Cespedes MDReport Verified Date/Time: 03/18/2021 09:40:33 Reading Location: [facility] B1 [id number] Ortho Consult Reading Room PHOSPHORUS 2021-03-18 05:23:51 Test Item Value Reference Range Interpretation Comments PHOSPHORUS (BEAKER) 2.8 mg/dL 2.3-4.7 Specimen moderately (test code = 604) hemolyzed Mathematics Lecturer ID - AVE GBASIC METABOLIC [id number] 05:23:51 Test Item Value Reference Range Interpretation Comments SODIUM (BEAKER) 134 meq/L 136-145 L (test code = 381) POTASSIUM (BEAKER) 5.0 meq/L 3.5-5.1 Specimen moderately (test code = 379) hemolyzed CHLORIDE (BEAKER) 105 meq/L 98-107 (test code = 382) CO2 (BEAKER) (test 22 meq/L 22-29 code = 355) BLOOD UREA NITROGEN 19 mg/dL 7-21 (BEAKER) (test code = 354) CREATININE (BEAKER) 1.01 mg/dL 0.57-1.25 Specimen moderately (test code = 358) hemolyzed GLUCOSE RANDOM 142 mg/dL 70-105 H (BEAKER) (test code = 652) CALCIUM (BEAKER) 8.3 mg/dL 8.4-10.2 L (test code = 697) EGFR (BEAKER) (test 75 mL/min/1.73 ESTIMA MELLY GFR IS code = 1092) sq m NOT ACCURATE CREATININE CLEARANCE IN PREDICTING GLOMERULAR FILTRATION RATE . ESTIMATED GFR I S NOT APPLICABLE FOR DIALYSIS PATIEN TS. Mathematics Lecturer ID - AVE [id number] 05:23:50 Test Item Value Reference Range Interpretation Comments MAGNESIUM (BEAKER) 2.0 mg/dL 1.6-2.6 Specimen moderately (test code = 627) hemolyzed Mathematics Lecturer ID - AVE GPROTHROMBIN [id number] 05:08:21 Test Item Value Reference Range Interpretation Comments PROTIME (BEAKER) 14.7 seconds 11.9-14.2 H (test code = 759) INR (BEAKER) (test 1.17 See_Comment [Automat ed message] code = 370) The system [employer] generated this result transmitted ref erence range: <=5.90. The reference range was not used to int erpret this result as normal/abnormal . RECOMMENDED COUMADIN/WARFARIN INR THERAPY RANGESSTANDARD DOSE: 2.0 - 3.0 Includes: PROPHYLAXIS for venous thrombosis, systemic embolization; TREATMENT for venous thrombosis and/or pulmonary embolus.HIGH RISK: Target INR is 2.5-3.5 for patients with mechanical heart valves.CBC (HEMOGRAM ONLY)2021-03-18 05:02:40 Test Item Value Reference Range Interpretation Comments WHITE BLOOD CELL COUNT 13.6 K/ L 3.5-10.5 H (BEAKER) (test code = 775) RED BLOOD CELL COUNT 3.98 M/ L 4.63-6.08 L (BEAKER) (test code = 761) HEMOGLOBIN (BEAKER) 12.9 GM/DL 13.7-17.5 L (test code = 410) HEMATOCRIT (BEAKER) 38.7 % 40.1-51.0 L (test code = 411) MEAN CORPUSCULAR 97.2 fL 79.0-92.2 H Discordant MCV result VOLUME (BEAKER) (test compar ed to previous code = 753) result; clinica l correlation req uired. MEAN CORPUSCULAR 32.4 pg 25.7-32.2 H HEMOGLOBIN (BEAKER) (test code = 751) MEAN CORPUSCULAR 33.3 GM/DL 32.3-36.5 HEMOGLOBIN CONC (BEAKER) (test code = 752) RED CELL DISTRIBUTION 13.4 % 11.6-14.4 WIDTH (BEAKER) (test code = 412) PLATELET COUNT 86 K/CU MM 150-450 L (BEAKER) (test code = 756) MEAN PLATELET VOLUME 9.6 fL 9.4-12.4 (BEAKER) (test code = 754) NUCLEATED RED BLOOD 0 /100 WBC 0-0 CELLS (BEAKER) (test code = 413) RAD, CHEST, 1 VIEW, NON [id number] 03:36:00Reason for exam:->post opShould this be performed at the bedside?->Yes [facility] 1960 Sex: MFINAL REPORT EXAM/TECHNIQUE: Single view frontal radiograph of the chest. INDICATION: Postoperative. COMPARISON: Chest radiography from 03/17/2021. FINDINGS: Devices/Objects: Unchanged right internal jugular central venous catheter terminating in the mid SVC. Aortic stent is present. Lungs: Small left pleural effusion and basilar opacity. No visible pneumothorax. Heart/Mediastinum: Nocardiomegaly. No interstitial thickening. Osseous: No acute osseous process. No suspicious osseous lesion. Upper abdomen: Unremarkable. Impression: Small left pleural effusion and basilar opacity. Signed: Jani Dias MDReport Verified Date/Time: 03/18/2021 03:36:26 [id number] 14:27:42 Test Item Value Reference Range Interpretation Comments ACTIVATED CLOTTING TIME 257 sec : 74 -137 seconds, (BEAKER) (test code = Baseli ne: TESTED AT 441) [facility] [address] [facility], [address]: Mathematics Lecturer/Techni martha ID = [id number] for JHOANA ARSHAD [id number] 14:27:08 Test Item Value Reference Range Interpretation Comments ACTIVATED CLOTTING TIME 109 sec : 74 -137 seconds, (BEAKER) (test code = Baseli ne: TESTED AT 441) [facility] [address] [place], [address]: Mathematics Lecturer/Techni martha ID = [id number] for JHOANA ARSHAD BASIC METABOLIC [id number] 11:33:10 Test Item Value Reference Range Interpretation Comments SODIUM (BEAKER) 138 meq/L 136-145 (test code = 381) POTASSIUM (BEAKER) 4.6 meq/L 3.5-5.1 (test code = 379) CHLORIDE (BEAKER) 111 meq/L 98-107 H (test code = 382) CO2 (BEAKER) (test 21 meq/L 22-29 L code = 355) BLOOD UREA NITROGEN 21 mg/dL 7-21 (BEAKER) (test code = 354) CREATININE (BEAKER) 1.10 mg/dL 0.57-1.25 (test code = 358) GLUCOSE RANDOM 145 mg/dL 70-105 H (BEAKER) (test code = 652) CALCIUM (BEAKER) 7.6 mg/dL 8.4-10.2 L (test code = 697) EGFR (BEAKER) (test 68 mL/min/1.73 ESTIMA MELLY GFR IS code = 1092) sq m NOT ACCURATE CREATININE CLEARANCE IN PREDICTING GLOMERULAR FILTRATION RATE . ESTIMATED GFR I S NOT APPLICABLE FOR DIALYSIS PATIEN TS. Mathematics Lecturer ID - HIRA [id number] 11:19:48 Test Item Value Reference Range Interpretation Comments PHOSPHORUS (BEAKER) (test code = 2.8 mg/dL 2.3-4.7 604) Mathematics Lecturer ID - HIRA [id number] 11:19:47 Test Item Value Reference Range Interpretation Comments MAGNESIUM (BEAKER) (test code = 2.0 mg/dL 1.6-2.6 627) Mathematics Lecturer ID - PICHRIS LCALCIUM, [id number] 11:18:57 Test Item Value Reference Range Interpretation Comments CALCIUM IONIZED (BEAKER) (test 1.09 mmol/L 1.12-1.27 L code = 698) PH, BLOOD (BEAKER) (test code = 7.31 1810) PROTHROMBIN [id number] 11:14:24 Test Item Value Reference Range Interpretation Comments PROTIME (BEAKER) 16.3 seconds 11.9-14.2 H (test code = 759) INR (SAMIR) (test 1.33 See_Comment [Automat ed message] code = 370) The system [employer] generated this result transmitted ref erence range: <=5.90. The reference range was not used to int erpret this result as normal/abnormal . RECOMMENDED COUMADIN/WARFARIN INR THERAPY RANGESSTANDARD DOSE: 2.0 - 3.0 Includes: PROPHYLAXIS for venous thrombosis, systemic embolization; TREATMENT for venous thrombosis and/or pulmonary embolus.HIGH RISK: Target INR is 2.5-3.5 for patients with mechanical heart valves.RAD, CHEST, 1 VIEW, NON [id number] 11:07:00Reason for exam:->Post-opShould this be performed at the bedside?->[facility] : 1960 Sex: MFINAL REPORT RAD, CHEST, 1 VIEW, NON DEPT INDICATION: Post-op COMPARISON: Prior day's exam FINDINGS: Portable frontal view of the chest. IMPRESSION: Support Lines: Central catheter tipoverlies the SVC. Vascular graft. Lungs and pleura: Lungs are hypoinflated compared to prior exam. Diffuse interstitial thickening, representing singly or in combination, interstitial edema and/or pneumonitis. No significant pneumothorax. Heart and mediastinum: Stable contours. Stable surgical changes. Additional findings: None. Signed: Genesis Fuller MDReport Verified Date/Time: 03/17/2021 11:07:22Reading Location: [facility] Radiology Reading Room CBC W/PLT COUNT & AUTO [id number] 11:06:42 Test Item Value Reference Range Interpretation Comments WHITE BLOOD CELL COUNT (BEAKER) 9.6 K/ L 3.5-10.5 (test code = 775) RED BLOOD CELL COUNT (BEAKER) 4.11 M/ L 4.63-6.08 L (test code = 761) HEMOGLOBIN (BEAKER) (test code = 13.3 GM/DL 13.7-17.5 L 410) HEMATOCRIT (BEAKER) (test code = 38.1 % 40.1-51.0 L 411) MEAN CORPUSCULAR VOLUME (BEAKER) 92.7 fL 79.0-92.2 H (test code = 753) MEAN CORPUSCULAR HEMOGLOBIN 32.4 pg 25.7-32.2 H (BEAKER) (test code = 751) MEAN CORPUSCULAR HEMOGLOBIN CONC 34.9 GM/DL 32.3-36.5 (BEAKER) (test code = 752) RED CELL DISTRIBUTION WIDTH 13.3 % 11.6-14.4 (BEAKER) (test code = 412) PLATELET COUNT (BEAKER) (test 110 K/CU MM 150-450 L code = 756) MEAN PLATELET VOLUME (BEAKER) 9.8 fL 9.4-12.4 (test code = 754) NUCLEATED RED BLOOD CELLS 0 /100 WBC 0-0 (BEAKER) (test code = 413) NEUTROPHILS RELATIVE PERCENT 72 % (BEAKER) (test code = 429) LYMPHOCYTES RELATIVE PERCENT 16 % (BEAKER) (test code = 430) MONOCYTES RELATIVE PERCENT 9 % (BEAKER) (test code = 431) EOSINOPHILS RELATIVE PERCENT 2 % (BEAKER) (test code = 432) BASOPHILS RELATIVE PERCENT 1 % (BEAKER) (test code = 437) NEUTROPHILS ABSOLUTE COUNT 6.98 K/ L 1.78-5.38 H (BEAKER) (test code = 670) LYMPHOCYTES ABSOLUTE COUNT 1.52 K/ L 1.32-3.57 (BEAKER) (test code = 414) MONOCYTES ABSOLUTE COUNT (BEAKER) 0.83 K/ L 0.30-0.82 H (test code = 415) EOSINOPHILS ABSOLUTE COUNT 0.18 K/ L 0.04-0.54 (BEAKER) (test code = 416) BASOPHILS ABSOLUTE COUNT (BEAKER) 0.05 K/ L 0.01-0.08 (test code = 417) IMMATURE GRANULOCYTES-RELATIVE 1 % 0-1 PERCENT (BEAKER) (test code = 2801) LACTIC ACID, [id number] 11:00:42 Test Item Value Reference Range Interpretation Comments LACTATE BLOOD ARTERIAL (2) 0.8 mmol/L 0.5-2.2 (BEAKER) (test code = 2874) Mathematics Lecturer ID - PIAYA LPOCT-GLUCOSE [id number] 06:07:30 Test Item Value Reference Range Interpretation Comments POC-GLUCOSE METER 128 mg/dL 70-110 H : TESTED A T [facility] [address] (BEAKER) (test code = [address] [place], [address]) [address]: Mathematics Lecturer/Techni martha ID = [id number] for ROBYN RAMSEY SARS-COV2/RT-PCR ([facility])2021-03-16 20:30:47 Test Item Value Reference Range Interpretation Comments SARS-COV2/RT-PCR (test code = Negative Negative [id number]) Negative result for this test determines that SARS-CoV-2 RNA was not present in the specimen above the Limit of Detection (LOD). However, Negative results do not preclude SARS-CoV-2 infection and should not be used as the sole basis for treatment or patient management decisions. Negative results must be combined with clinical observations, patient history, and epidemiological information. A false negative result may occur if a specimen is improperly collected, transported, or handled. A false negative result should be considered if patient's recent exposures or clinical presentation indicate that COVID-19 (SARS-CoV-2) is likely and diagnostic tests for other causes of illness are negative. Re-testing should be considered in cases of suspected false negatives.The limit of detection for this assay is 100 copies/mL.This SARS-CoV-2 test is a real-time RT_PCR test intended for the qualitative detection of nucleic acid from SARS-CoV-2 in a nasopharyngeal swab specimen collected from individuals suspected of COVID-19 by their healthcare provider.This test has not been Food and Drug Administration (FDA) cleared or approved. This is a modified version of an approved Emergency Use Authorization (EUA) and is in the process of review by the FDA. Once authorized by the FDA, the issued EUA will be effective until the declaration that circumstances exist justifying the authorization of the emergency use of in vitro diagnostic tests for detection and/or diagnosis of COVID-19 is terminated under Section 564(b)(2) of the Act or the EUA is revoked under Section 564(g) of the Act.Testing was performed using Dispatch SARS-CoV-2 assay.Fact Sheet for Healthcare Providers:https://www.[employer]/marcos/RT SARS-CoV-2 HCP Fact Sheet 51- 898810.pdfFact Sheet for Healthcare Patients:https://www.[employer]/marcos/RT SARS-CoV-2 Patient Fact Sheet EN 51-615257M1.pdfURINALYSIS W/ MICROSCOPIC 2021-03-16 13:48:26 Test Item Value Reference Range Interpretation Comments COLOR (BEAKER) (test code = 470) Yellow CLARITY (BEAKER) (test code = 469) Clear SPECIFIC GRAVITY UA (BEAKER) (test 1.017 1.001-1.035 code = 468) PH UA (BEAKER) (test code = 467) 6.0 5.0-8.0 PROTEIN UA (BEAKER) (test code = Negative Negative 464) GLUCOSE UA (BEAKER) (test code = Negative Negative 365) KETONES UA (BEAKER) (test code = Negative Negative 371) BILIRUBIN UA (BEAKER) (test code = Negative Negative 462) BLOOD UA (BEAKER) (test code = 461) Small Negative A NITRITE UA (BEAKER) (test code = Negative Negative 465) LEUKOCYTE ESTERASE UA (BEAKER) Negative Negative (test code = 466) UROBILINOGEN UA (BEAKER) (test code 0.2 mg/dL 0.2-1.0 = 463) RBC UA (BEAKER) (test code = 519) 6 /HPF WBC UA (BEAKER) (test code = 520) 3 /HPF BACTERIA (BEAKER) (test code = 517) None Seen CRYSTALS, URINE (BEAKER) (test code None Seen = 1521) SOURCE(BEAKER) (test code = 2795) Mathematics Lecturer ID - [auto]Mathematics Lecturer ID - techHEPATITIS C [id number] 13:31:36 Test Item Value Reference Range Interpretation Comments HEPATITIS C ANTIBODY (BEAKER) (test Reactive Nonreactive A code = 367) Mathematics Lecturer ID - AURELIO MHEPATITIS B [id number] 13:28:00 Test Item Value Reference Range Interpretation Comments HEPATITIS B CORE TOTAL ANTIBODY Nonreactive Nonreactive (BEAKER) (test code = 497) HEPATITIS B SURFACE ANTIBODY < mIU/mL <8.0 (BEAKER) (test code = 647) HEPATITIS B SURFACE ANTIGEN (2) Nonreactive Nonreactive (BEAKER) (test code = 2585) Mathematics Lecturer ID - AURELIO MHIV-1 ANTIGEN WITH HIV-1/2 [id number] 12:51:42 Test Item Value Reference Range Interpretation Comments HIV-1 ANTIGEN WITH HIV 1\\T\\2 Nonreactive Nonreactive ANTIBODY (2) (BEAKER) (test code = 2586) Mathematics Lecturer ID - AURELIO MRAD, CHEST, 2 [id number] 12:47:00Reason for Exam:->[facility] : 1960 Sex: MFINAL REPORT INDICATION: pre-op COMPARISON: 10/19/2020 TECHNIQUE: AP and lateral view of the chest. FINDINGS: Lungs and pleura: Clear lungs. No effusion.Heart and mediastinum: Normal heart size. Unremarkable mediastinal contours.Osseous structures: No acute abnormality.Other: None. IMPRESSION: No acute intrathoracic abnormality. Signed: Genesis Fuller Verified Date/Time: 03/16/2021 12:47:38 Reading Location: [facility] Radiology Reading Room BILIRUBIN, ADULT [id number] 12:42:50 Test Item Value Reference Range Interpretation Comments BILIRUBIN TOTAL (BEAKER) (test code 0.6 mg/dL 0.2-1.2 = 377) Mathematics Lecturer ID - ADMINBILIRUBIN, [id number] 12:42:50 Test Item Value Reference Range Interpretation Comments BILIRUBIN DIRECT (BEAKER) (test 0.2 mg/dL 0.1-0.5 code = 706) Mathematics Lecturer ID - ADMINLACTATE DEHYDROGENASE (LDH)2021-03-16 12:42:50 Test Item Value Reference Range Interpretation Comments LACTATE DEHYDROGENASE (BEAKER) (test 179 U/L 125-220 code = 635) Mathematics Lecturer ID - [id number] 12:42:50 Test Item Value Reference Range Interpretation Comments LIPASE (BEAKER) (test code = 749) 66 U/L 8-78 Mathematics Lecturer ID - [id number] 12:42:45 Test Item Value Reference Range Interpretation Comments AMYLASE (BEAKER) (test code = 349) 74 U/L 25-125 Mathematics Lecturer ID - ADMINBASIC METABOLIC [id number] 12:42:44 Test Item Value Reference Range Interpretation Comments SODIUM (BEAKER) 139 meq/L 136-145 (test code = 381) POTASSIUM (BEAKER) 4.7 meq/L 3.5-5.1 (test code = 379) CHLORIDE (BEAKER) 107 meq/L 98-107 (test code = 382) CO2 (BEAKER) (test 27 meq/L 22-29 code = 355) BLOOD UREA NITROGEN 21 mg/dL 7-21 (BEAKER) (test code = 354) CREATININE (BEAKER) 1.43 mg/dL 0.57-1.25 H (test code = 358) GLUCOSE RANDOM 95 mg/dL 70-105 (BEAKER) (test code = 652) CALCIUM (BEAKER) 9.2 mg/dL 8.4-10.2 (test code = 697) EGFR (BEAKER) (test 50 mL/min/1.73 ESTIMA MELLY GFR IS code = 1092) sq m NOT ACCURATE CREATININE CLEARANCE IN PREDICTING GLOMERULAR FILTRATION RATE . ESTIMATED GFR I S NOT APPLICABLE FOR DIALYSIS PATIEN TS. Mathematics Lecturer ID - ADMINALT (SGPT)2021-03-16 12:42:44 Test Item Value Reference Range Interpretation Comments ALT (SGPT) (BEAKER) (test code = 347) 87 U/L 6-55 H Mathematics Lecturer ID - ADMINAST (SGOT)2021-03-16 12:42:44 Test Item Value Reference Range Interpretation Comments AST (SGOT) (BEAKER) (test code = 353) 76 U/L 5-34 H Mathematics Lecturer ID - ADMINPROTEIN, [id number] 12:42:44 Test Item Value Reference Range Interpretation Comments TOTAL PROTEIN (BEAKER) (test code = 7.4 gm/dL 6.0-8.3 770) Mathematics Lecturer ID - [id number] 12:42:44 Test Item Value Reference Range Interpretation Comments ALBUMIN (BEAKER) (test code = 1145) 3.9 g/dL 3.5-5.0 Mathematics Lecturer ID - ADMINALKALINE [id number] 12:42:39 Test Item Value Reference Range Interpretation Comments ALKALINE PHOSPHATASE (BEAKER) (test 91 U/L 40-150 code = 346) Mathematics Lecturer ID - [id number] 12:14:24 Test Item Value Reference Range Interpretation Comments PARTIAL THROMBOPLASTIN TIME 30.0 seconds 22.5-36.0 (BEAKER) (test code = 760) PROTHROMBIN [id number] 12:13:43 Test Item Value Reference Range Interpretation Comments PROTIME (BEAKER) 15.3 seconds 11.9-14.2 H (test code = 759) INR (BEAKER) (test 1.23 See_Comment [Automat ed message] code = 370) The system [employer] generated this result transmitted ref erence range: <=5.90. The reference range was not used to int erpret this result as normal/abnormal . RECOMMENDED COUMADIN/WARFARIN INR THERAPY RANGESSTANDARD DOSE: 2.0 - 3.0 Includes: PROPHYLAXIS for venous thrombosis, systemic embolization; TREATMENT for venous thrombosis and/or pulmonary embolus.HIGH RISK: Target INR is 2.5-3.5 for patients with mechanical heart valves.CBC W/PLT COUNT & AUTO [id number] 12:07:21 Test Item Value Reference Range Interpretation Comments WHITE BLOOD CELL COUNT (BEAKER) 6.2 K/ L 3.5-10.5 (test code = 775) RED BLOOD CELL COUNT (BEAKER) 4.70 M/ L 4.63-6.08 (test code = 761) HEMOGLOBIN (BEAKER) (test code = 15.4 GM/DL 13.7-17.5 410) HEMATOCRIT (BEAKER) (test code = 45.3 % 40.1-51.0 411) MEAN CORPUSCULAR VOLUME (BEAKER) 96.4 fL 79.0-92.2 H (test code = 753) MEAN CORPUSCULAR HEMOGLOBIN 32.8 pg 25.7-32.2 H (BEAKER) (test code = 751) MEAN CORPUSCULAR HEMOGLOBIN CONC 34.0 GM/DL 32.3-36.5 (BEAKER) (test code = 752) RED CELL DISTRIBUTION WIDTH 13.2 % 11.6-14.4 (BEAKER) (test code = 412) PLATELET COUNT (BEAKER) (test 121 K/CU MM 150-450 L code = 756) MEAN PLATELET VOLUME (BEAKER) 9.4 fL 9.4-12.4 (test code = 754) NUCLEATED RED BLOOD CELLS 0 /100 WBC 0-0 (BEAKER) (test code = 413) NEUTROPHILS RELATIVE PERCENT 65 % (BEAKER) (test code = 429) LYMPHOCYTES RELATIVE PERCENT 21 % (BEAKER) (test code = 430) MONOCYTES RELATIVE PERCENT 11 % (BEAKER) (test code = 431) EOSINOPHILS RELATIVE PERCENT 2 % (BEAKER) (test code = 432) BASOPHILS RELATIVE PERCENT 1 % (BEAKER) (test code = 437) NEUTROPHILS ABSOLUTE COUNT 4.04 K/ L 1.78-5.38 (BEAKER) (test code = 670) LYMPHOCYTES ABSOLUTE COUNT 1.31 K/ L 1.32-3.57 L (BEAKER) (test code = 414) MONOCYTES ABSOLUTE COUNT (BEAKER) 0.68 K/ L 0.30-0.82 (test code = 415) EOSINOPHILS ABSOLUTE COUNT 0.14 K/ L 0.04-0.54 (BEAKER) (test code = 416) BASOPHILS ABSOLUTE COUNT (BEAKER) 0.05 K/ L 0.01-0.08 (test code = 417) IMMATURE GRANULOCYTES-RELATIVE 0 % 0-1 PERCENT (BEAKER) (test code = 2801) RETICULOCYTE [id number] 12:05:21 Test Item Value Reference Range Interpretation Comments RETICULOCYTE COUNT PCT (BEAKER) (test 1.0 % 0.5-1.8 code = 575) Mathematics Lecturer ID - [id number] IMAGING, MULTI, PHARM, [id number] 14:11:00 Unlisted Reason for Exam - Click Yes and Enter Reason Below->YesUnlisted Reason for Exam->current smoker [facility] : 1960 Sex: MFINAL REPORT PROCEDURE: MYOCARDIAL PERFUSION SPECT IMAGING (Rest/Stress)CPT CODE: 97827 INDICATION: Suspect underlying CAD CARDIOVASCULAR PROFILE:CAD History: NoneSymptoms: Chest painRisk Factors: Hypertension, tobacco abuse, cirrhosisBMI: 30.4Medications: Losartan, labetalol STRESS P ROTOCOL:Pharmacologic stress was achieved with a 10-second intravenous infusion of regadenoson 0.4 mg. The radiopharmaceutical was administered 30 seconds after the start of the regadenoson infusion. IMAGING PROTOCOL:10.2 mCi of Tc-99m sestamibi was injected intravenously at rest, and gated SPECT images were obtained. Then, 32.6 mCi of Tc-99m sestamibi was injected intravenously at peak stress, and gated SPECT images were obtained. REST FINDINGS:HR: 57/minBP: 127/84 mmHgPrelim. EKG: Sinus bradycardia, nonspecific T wave abnormalities.Perfusion: Normal.Wall Motion: Normal LV Volume: Normal.RV Volume: Normal. STRESS FINDINGS:HR: 78/min (48% of MPHR)BP: 143/69 mmHgPrelim. EKG: No ischemic changes.Symptoms: None (treatment not required).Perfusion: Normal.Wall Motion: Normal (LVEF 57%).LV Volume: Not significantly changed from rest. IMPRESSION:1. Normal study.2. Normal myocardial perfusion. 3. Normalresting LVEF, which does not deteriorate with stress.4. Normal extracardiac tracer distribution.5. There is no prior study for comparison. Signed: Dex Altman Verified Date/Time: 01/23/2021 14:11:54 Reading Location: [place] [id number] Reading Room BLOOD [id number] 11:39:00 Test Item Value Reference Range Interpretation Comments CULTURE A From Anaerobic Bottle (BEAKER) (test Only Same org anism has code = 1095) been isolated f rom cultures(s) of the same body site and collection date . Repeat identifi cation and susceptibil ity testing perform ed only after consultat ion with the [facility] microbiology laboratory.Refe r to previous cultur e ofEscherichia c oliESBL Positive GRAM STAIN From anaerobic RESULT (BEAKER) bottle only: gram (test code = negative rods 1123) BLOOD [id number] 11:38:00 Test Item Value Reference Range Interpretation Comments CULTURE (BEAKER) (test ESCHERICHIA COLI A F rom Anaerobic code = 1095) ESBL Bottle Only Escherichia col i ESBL Amikacin (test code = S 1) Ampicillin + Sulbactam R (test code = 6) Aztreonam (test code = R 32) Cefepime (test code = R 51) Cefoxitin (test code = R 68) Ceftazidime (test code R = 27) Ceftriaxone (test code R = 52) Ertapenem (test code = S 38) Gentamicin (test code R = 18) Levofloxacin (test R code = 22) Meropenem (test code = S 34) Nitrofurantoin (test S code = 23) Piperacillin + R Tazobactam (test code = 29) Tetracycline (test S code = 2) Tobramycin (test code S = 25) Trimethoprim + S Sulfamethoxazole (test code = 47) GRAM STAIN RESULT From anaerobic (BEAKER) (test code = bottle only: gram 1123) negative rods BASIC METABOLIC [id number] 07:00:00 Test Item Value Reference Range Interpretation Comments SODIUM (BEAKER) 136 meq/L 136-145 (test code = 381) POTASSIUM (BEAKER) 4.0 meq/L 3.5-5.1 (test code = 379) CHLORIDE (BEAKER) 105 meq/L 98-107 (test code = 382) CO2 (BEAKER) (test 23 meq/L 22-29 code = 355) BLOOD UREA NITROGEN 15 mg/dL 7-21 (BEAKER) (test code = 354) CREATININE (BEAKER) 1.00 mg/dL 0.57-1.25 (test code = 358) GLUCOSE RANDOM 103 mg/dL 70-105 (BEAKER) (test code = 652) CALCIUM (BEAKER) 8.9 mg/dL 8.4-10.2 (test code = 697) EGFR (BEAKER) (test 76 mL/min/1.73 ESTIMA MELLY GFR IS code = 1092) sq m NOT ACCURATE CREATININE CLEARANCE IN PREDICTING GLOMERULAR FILTRATION RATE . ESTIMATED GFR I S NOT APPLICABLE FOR DIALYSIS PATIEN TS. Mathematics Lecturer ID - [id number] 07:00:00 Test Item Value Reference Range Interpretation Comments MAGNESIUM (BEAKER) (test code = 1.9 mg/dL 1.6-2.6 627) Mathematics Lecturer ID - [id number] 07:00:00 Test Item Value Reference Range Interpretation Comments PHOSPHORUS (BEAKER) (test code = 3.0 mg/dL 2.3-4.7 604) Mathematics Lecturer ID - DBCBC (HEMOGRAM ONLY)2020-10-21 06:25:00 Test Item Value Reference Range Interpretation Comments WHITE BLOOD CELL COUNT (BEAKER) 5.9 K/ L 3.5-10.5 (test code = 775) RED BLOOD CELL COUNT (BEAKER) 4.24 M/ L 4.63-6.08 L (test code = 761) HEMOGLOBIN (BEAKER) (test code = 13.6 GM/DL 13.7-17.5 L 410) HEMATOCRIT (BEAKER) (test code = 40.6 % 40.1-51.0 411) MEAN CORPUSCULAR VOLUME (BEAKER) 95.8 fL 79.0-92.2 H (test code = 753) MEAN CORPUSCULAR HEMOGLOBIN 32.1 pg 25.7-32.2 (BEAKER) (test code = 751) MEAN CORPUSCULAR HEMOGLOBIN CONC 33.5 GM/DL 32.3-36.5 (BEAKER) (test code = 752) RED CELL DISTRIBUTION WIDTH 12.7 % 11.6-14.4 (BEAKER) (test code = 412) PLATELET COUNT (BEAKER) (test 144 K/CU MM 150-450 L code = 756) MEAN PLATELET VOLUME (BEAKER) 9.4 fL 9.4-12.4 (test code = 754) NUCLEATED RED BLOOD CELLS 0 /100 WBC 0-0 (BEAKER) (test code = 413) [id number] 06:35:00 Test Item Value Reference Range Interpretation Comments MAGNESIUM (BEAKER) (test code = 1.9 mg/dL 1.6-2.6 627) Mathematics Lecturer AGGIE - AURELIO MBASIC METABOLIC [id number] 06:35:00 Test Item Value Reference Range Interpretation Comments SODIUM (BEAKER) 139 meq/L 136-145 (test code = 381) POTASSIUM (BEAKER) 4.0 meq/L 3.5-5.1 (test code = 379) CHLORIDE (BEAKER) 106 meq/L 98-107 (test code = 382) CO2 (BEAKER) (test 28 meq/L 22-29 code = 355) BLOOD UREA NITROGEN 15 mg/dL 7-21 (BEAKER) (test code = 354) CREATININE (BEAKER) 0.99 mg/dL 0.57-1.25 (test code = 358) GLUCOSE RANDOM 106 mg/dL 70-105 H (BEAKER) (test code = 652) CALCIUM (BEAKER) 8.6 mg/dL 8.4-10.2 (test code = 697) EGFR (BEAKER) (test 77 mL/min/1.73 ESTIMA MELLY GFR IS code = 1092) sq m NOT ACCURATE CREATININE CLEARANCE IN PREDICTING GLOMERULAR FILTRATION RATE . ESTIMATED GFR I S NOT APPLICABLE FOR DIALYSIS PATIEN TS. Mathematics Lecturer AGGIE - AURELIO [id number] 06:35:00 Test Item Value Reference Range Interpretation Comments PHOSPHORUS (BEAKER) (test code = 3.0 mg/dL 2.3-4.7 604) Mathematics Lecturer AGGIE CAREY [facility] (HEMOGRAM ONLY)2020-10-20 06:16:00 Test Item Value Reference Range Interpretation Comments WHITE BLOOD CELL COUNT (BEAKER) 4.2 K/ L 3.5-10.5 (test code = 775) RED BLOOD CELL COUNT (BEAKER) 3.99 M/ L 4.63-6.08 L (test code = 761) HEMOGLOBIN (BEAKER) (test code = 13.0 GM/DL 13.7-17.5 L 410) HEMATOCRIT (BEAKER) (test code = 37.6 % 40.1-51.0 L 411) MEAN CORPUSCULAR VOLUME (BEAKER) 94.2 fL 79.0-92.2 H (test code = 753) MEAN CORPUSCULAR HEMOGLOBIN 32.6 pg 25.7-32.2 H (BEAKER) (test code = 751) MEAN CORPUSCULAR HEMOGLOBIN CONC 34.6 GM/DL 32.3-36.5 (BEAKER) (test code = 752) RED CELL DISTRIBUTION WIDTH 12.7 % 11.6-14.4 (BEAKER) (test code = 412) PLATELET COUNT (BEAKER) (test 110 K/CU MM 150-450 L code = 756) MEAN PLATELET VOLUME (BEAKER) 9.7 fL 9.4-12.4 (test code = 754) NUCLEATED RED BLOOD CELLS 0 /100 WBC 0-0 (BEAKER) (test code = 413) BLOOD [id number] 18:45:00 Test Item Value Reference Range Interpretation Comments Culture Observations (test NO GROWTH AFTER 5 code = COB1) DAYS RAD, CHEST, 1 VIEW, NON [id number] 17:05:00Reason for exam:->check picc placementShould this be performed at the bedside?->Yes [facility] : 1960 Sex: MFINAL REPORT Exam: RAD, CHEST, 1 VIEW, NON DEPTDate: 10/19/2020 5:04 PM Indication: Line placement Comparison: Chest radiograph 10/15/2020 FINDINGS: Lines/Tubes:Right PICC line terminates in theSVC. There are multiple EKG leads and wires overlying the patient. Lungs:The lungs are well inflated. No focal consolidation or pulmonary edema. Pleura:No pleural effusion. No pneumothorax. Heart/Mediastinum:The cardiomediastinal silhouette is normal in size and contour. Bones/Soft Tissues: No acute osseous injury. Abdomen: No free air below the diaphragm. IMPRESSION:Right PICC line terminates in theSVC. Signed: Kenneth Myers MDReport Verified Date/Time: 10/19/2020 17:05:38 Reading Location: [address] Neuro Reading Room CTA, CHEST, ABDOMEN - PELVIS, FOR [id number] 14:34:00Unlisted Reason for Exam - Click Yes and Enter Reason Below->No [facility] : 1960 Sex: MAddendum BeginsREPORT STATUS:A I have reviewed the study for nonvascular components. I agree with the nonvascular findings as described. Following additional findings were noted: Centrilobular emphysema. Minimal paraseptal emphysema especially in the lingular lobe. Linear atelectasis or sca rring left lung base. Dependent atelectasis. Diffuse hepatic steatosis. Nodular contour of the liverwith lobar volume redistribution suggestive of hepatic cirrhosis. Substantiated by presence of portal hypertension as suggested by vascularity in the gastrohepatic ligament suggestive of varices, presence of trace ascites and and splenomegaly. The spleen measures approximately 14 cm. Calcified granuloma spleen. Gallbladder and biliary tree are unremarkable. Pancreas is unremarkable. There is some nodularity to the left adrenal gland otherwise unremarkable adrenals. Multiple renal cortical cysts havebeen described in the above report. There is symmetric uptake and excretion of contrast by both kidneys. Right hydronephrosis has been described in the right double-J stent. There is abnormal enhancement of the right pelvis and ureter wall suggestive of inflammation. There is no left hydronephrosis orhydroureter. The urinary bladder is unremarkable. There is a Faith catheter in place. Air in the bladder is likely because of the Faith catheter.A 5 mm nonobstructive calculus posterior calyx of the right kidney. A millimeter-sized calculus anterior calyx of the right kidney lower pole. Millimeter-sized calculus posterior calyx of the lower pole of the left kidney and 2 calculi anterior calyx of the lower pole of the left kidney a few additional small calcific densities in the collecting system of the mid pole of the left kidney. All of these are nonobstructive. There is also presence of a high density renal cyst in the posterior cortex of the left kidney, likely containing milk of calcium.Prostate and genitalia are unremarkable. There is gastric wall thickening. This could be because of under distention. If there is any clinical concern, endoscopic evaluation should be performed. This could also be related to portal hypertension. 2 the limited extent seen, small bowel is unremarkable. There isscattered sigmoid diverticulosis without diverticulitis. The large intestines are unremarkable. There is no inflammation in the region of the appendix. There is no intra-abdominal lymphadenopathy. There is suggestion of a small right indirect inguinal hernia. There is minimal anasarca of the body wall. Other than ascites, the peritoneum and mesenteries are unremarkable. There is slight dextroscoliosis of the thoracic lumbar spine. IMPRESSION: Hepatic cirrhosis with splenomegaly and other significantstigmata of portal hypertension. Diffuse hepatic steatosis. Right hydronephrosis with double-J stentand signs of inflammation in the collecting system as described above. Multiple bilateral renal calculi. See above regarding gastric wall thickening. Signed: Harsha Jacques [facility] Verified Date/Time:10/19/2020 14:34:36 Reading Location: [facility] Diagnostic Imaging Reading Room - [facility] [id number] EndsFINAL REPORT CTA Aorta - Chest, Abdomen, and Pelvis: 10/17/2020 11:04 AM. Comparison: None available. History: 60 years old Male with PMH of HCV, cirrhosis, substance abuse, HTN, 35 year smoking hx, nephrolithiasis,\\XA0\\hx of aortic dissection, diagnosed 09/2019\\XA0\\admitted on: 10/15/2020 \\XA0\\2:51 PM\\XA0\\as a transfer from [facility] for type B aortic dissection seen on CT.. Evaluatedfor further treatment options, including cardiothoracic surgery. Indication: There is clinical need to define thoracic and abdominal aortic anatomy, as well as to assess vascular access for possible peripheral cannulation. There is a clinical concern of aortic aneurysm. This study is performed in an attempt to avoid an invasive procedure. TECHNIQUE: Spiral acquisition before and during intravenous contrast administration using a (Toby iCT 256-slice scanner). Images were obtained before and duringthe dynamic passage of intravenous contrast material. Multi-planar 3-D volume- rendering reconstruction was performed using an independent workstation interactively by the interpreting physician as wellas the 3-D specialist for optimal visualisation of the thoracoabdominal aorta, the pelvic arteries as well as its proximal branches. Please refer to the contrast sheet scanned in the EPIC system for the amount and route of contrast given. This exam was performed according to our departmental dose-optimisation programme, which includes automated exposure control, adjustment of the mA and/or kV according to patient size and/or use of iterative reconstruction technique. Dose modulation, iterative reconstruction, and/or weight based adjustment of the mA/kV was utilized to reduce the radiation dose to as low as reasonably achievable. RESULT: Potential study limitations: None. CHEST: The visualized thyroid gland appears unremarkable. The chest wall is unremarkable. The mediastinum is unremarkable. There are small mediastinal lymph nodes, however there is no significant adenopathy noted in the axillae,mediastinum, and rebecca. The pericardium appears normal. The pulmonary arteries are normal. The lung windows: Reveal apically predominant moderate emphysematous changes. The central airways are patent. There is no abnormal pulmonary parenchymal mass, infiltrate, or pleural effusion. The cardiac chambershave normal atrioventricular and ventriculoarterial concordance, and systemic and pulmonary venous return. The cardiac chamber sizes are notable for mild biatrial enlargement. The coronary arteries have normal origins and courses. There are no distinct coronary calcifications identified, though this study was not optimized for coronary artery evaluation. VASCULAR WITH ADVANCED 3-D OFFLINE POST-PROCESSING:The aortic valve is trileaflet and is free from calcifications. The aortic root is symmetric andnormal in dimension. The sinotubular junction is preserved. The ascending thoracic aorta and aortic arch: Normal in course, caliber and contour. The arch vessel branching pattern is normal. Normal variant, the left vertebral artery originates data from the aortic arch The imaged arch branch vessels are patent proximally. Of note: there is no calcification of the anterior ascending aorta. There is a type B aortic dissection extending 4 cm below the origin of left subclavian artery to the infrarenal segment of the abdominal aorta immediately below the origin of the two right renal arteries. The falselumen is partially thrombosed extending from the mid descending to the mesenteric segment of the abdominal aorta. With a maximal diameter of the aneurysm measuring 5.1 x 4.5 cm at the proximal descending thoracic aorta there is evidence of communication between the false and true lumen at the mid descending thoracic aorta. There is partially thrombosed infrarenal abdominal aortic aneurysm measuring 4.0 x 3.7 cm. The celiac, SMA and the left renal artery all origin it from the true lumen. There are three right renal arteries with two originating from the false lumen and one originating from the confluence of true and false lumen. There is a small focal dissection at the distal segment of the celiac artery measuring 1.7 x 1.6 cm. The pelvic arteries are tortuous, but normal in caliber with mild to moderate calcification predominantly involving the bilateral common iliac arteries. The common femoral and superficial femoral arteries are normal in course and caliber with mild scattered calcific ather osclerotic changes. Regulator Tester dimensions of the thoracic aorta are as follows:*3.5 cm at the sinuses of Valsalva (measured [id number]-[id number])*3.7 cm in the mid-ascending aorta*3.5 cm at the distal ascending aorta*3.1 cm at the mid-transverse arch*5.1 x 4.5 cm at the proximal descending thoracicaorta*4.7 x 4.7 cm at the diaphragmatic hiatus Regulator Tester dimensions of the abdominal aorta are as follows: *4.6 x 4.6 cm at the supra-mesenteric segment*4.4 x 3.4 cm at the mesenteric segment*3.1 x 2.8 cm at the renal segment*4.0 x 3.7 cm at the infrarenal segment*2.6 x 2.4 cm at the aortic bifurcation ABDOMEN-PELVIS:In the abdomen, the liver and spleen appears unremarkable. No abnormal enhancing structure is identified. The gallbladder and pancreas appears grossly normal. The adrenal glands are not enlarged. The kidneys are normal in size. There is evidence of hydronephrosis involving the right kidney with due to pigtail catheter/stent from the renal pelvis ending in the bladder noted. Thereis evidence of mild perinephric stranding at on the right kidney, suggestive of pyelonephritis. There are multiple small simple appearing subcentimeter renal cysts involving the right kidney. Bowel is not well assessed by CT angiography as enteric contrast is not given. No obvious bowel dilation is seen. There is no significant retroperitoneal adenopathy. No free fluid or free air is identified. Faith's catheter ending in the gallbladder noted. The visualized pelvic organs appear unremarkable. BONES:Normal. CONCLUSIONS: 1. There is a type B aortic dissection extending 4 cm below the origin of left subclavian artery to the infrarenal segment of the abdominal aorta immediately below the origin of the two right renal arteries. The false lumen is partially thrombosed extending from the mid descendingto the mesenteric segment of the abdominal aorta. With a maximal diameter of the aneurysm measuring 5.1 x 4.5 cm at the proximal descending thoracic aorta. There is evidence of communication between the false and true lumen at the mid descending thoracic aorta. 2. There is partially thrombosed infrarenal abdominal aortic aneurysm measuring 4.0 x 3.7 cm. 3. The celiac, SMA and the left renal artery all origin it from the true lumen. There are three right renal arteries with two originating from the false lumen and one originating from the confluence of true and false lumen. There is a small focal dissection at the distal segment of the celiac artery measuring 1.7 x 1.6 cm 4. There is evidence of hydronephrosis involving the right kidney with due to pigtail catheter/stent from the renal pelvis ending in the bladder noted. There is evidence of mild perinephric stranding at on the right kidney, suggestive of pyelonephritis. 5. The ascending thoracic aorta and arch are normal in course, contour, andcalibre. There is no evidence of acute aortic pathology, specifically, there is no dissection, intramural hematoma, or contained rupture. Quantitative dimension of the aorta are as described above. An addendum will be dictated regarding the non-vascular findings by the Link Assembler Radiologist. Signed: Hawk Paredes LIDIAeport Verified Date/Time: 10/18/2020 12:34:26 CBC W/PLT COUNT & AUTO [id number] 05:51:00 Test Item Value Reference Range Interpretation Comments WHITE BLOOD CELL COUNT (BEAKER) 4.1 K/ L 3.5-10.5 (test code = 775) RED BLOOD CELL COUNT (BEAKER) 3.55 M/ L 4.63-6.08 L (test code = 761) HEMOGLOBIN (BEAKER) (test code = 11.6 GM/DL 13.7-17.5 L 410) HEMATOCRIT (BEAKER) (test code = 34.1 % 40.1-51.0 L 411) MEAN CORPUSCULAR VOLUME (BEAKER) 96.1 fL 79.0-92.2 H (test code = 753) MEAN CORPUSCULAR HEMOGLOBIN 32.7 pg 25.7-32.2 H (BEAKER) (test code = 751) MEAN CORPUSCULAR HEMOGLOBIN CONC 34.0 GM/DL 32.3-36.5 (BEAKER) (test code = 752) RED CELL DISTRIBUTION WIDTH 12.8 % 11.6-14.4 (BEAKER) (test code = 412) PLATELET COUNT (BEAKER) (test code 98 K/CU MM 150-450 L = 756) MEAN PLATELET VOLUME (BEAKER) 10.5 fL 9.4-12.4 (test code = 754) NUCLEATED RED BLOOD CELLS (BEAKER) 0 /100 WBC 0-0 (test code = 413) NEUTROPHILS RELATIVE PERCENT 63 % (BEAKER) (test code = 429) LYMPHOCYTES RELATIVE PERCENT 18 % (BEAKER) (test code = 430) MONOCYTES RELATIVE PERCENT 17 % (BEAKER) (test code = 431) EOSINOPHILS RELATIVE PERCENT 2 % (BEAKER) (test code = 432) BASOPHILS RELATIVE PERCENT 0 % (BEAKER) (test code = 437) NEUTROPHILS ABSOLUTE COUNT 2.55 K/ L 1.78-5.38 (BEAKER) (test code = 670) LYMPHOCYTES ABSOLUTE COUNT 0.73 K/ L 1.32-3.57 L (BEAKER) (test code = 414) MONOCYTES ABSOLUTE COUNT (BEAKER) 0.69 K/ L 0.30-0.82 (test code = 415) EOSINOPHILS ABSOLUTE COUNT 0.06 K/ L 0.04-0.54 (BEAKER) (test code = 416) BASOPHILS ABSOLUTE COUNT (BEAKER) 0.01 K/ L 0.01-0.08 (test code = 417) IMMATURE GRANULOCYTES-RELATIVE 1 % 0-1 PERCENT (BEAKER) (test code = 2801) [id number] 05:12:00 Test Item Value Reference Range Interpretation Comments MAGNESIUM (BEAKER) 1.8 mg/dL 1.6-2.6 Specimen slightly (test code = 627) hemolyzed Mathematics Lecturer ID - MOHAMUDAYA [id number] 05:12:00 Test Item Value Reference Range Interpretation Comments PHOSPHORUS (BEAKER) 2.2 mg/dL 2.3-4.7 L Specimen slightly (test code = 604) hemolyzed Mathematics Lecturer ID - MOHAMUDAYA LBASIC METABOLIC [id number] 05:12:00 Test Item Value Reference Range Interpretation Comments SODIUM (BEAKER) 138 meq/L 136-145 (test code = 381) POTASSIUM (BEAKER) 4.3 meq/L 3.5-5.1 Specimen slightly (test code = 379) hemolyzed CHLORIDE (BEAKER) 106 meq/L 98-107 (test code = 382) CO2 (BEAKER) (test 26 meq/L 22-29 code = 355) BLOOD UREA NITROGEN 13 mg/dL 7-21 (BEAKER) (test code = 354) CREATININE (BEAKER) 0.99 mg/dL 0.57-1.25 Specimen slightly (test code = 358) hemolyzed GLUCOSE RANDOM 98 mg/dL 70-105 (BEAKER) (test code = 652) CALCIUM (BEAKER) 8.3 mg/dL 8.4-10.2 L (test code = 697) EGFR (BEAKER) (test 77 mL/min/1.73 ESTIMA MELLY GFR IS code = 1092) sq m NOT ACCURATE CREATININE CLEARANCE IN PREDICTING GLOMERULAR FILTRATION RATE . ESTIMATED GFR I S NOT APPLICABLE FOR DIALYSIS PATIEN TS. Mathematics Lecturer ID - MOHAMUDCHRIS BERGERONASIC METABOLIC [id number] 07:22:00 Test Item Value Reference Range Interpretation Comments SODIUM (BEAKER) 138 meq/L 136-145 (test code = 381) POTASSIUM (BEAKER) 3.6 meq/L 3.5-5.1 (test code = 379) CHLORIDE (BEAKER) 107 meq/L 98-107 (test code = 382) CO2 (BEAKER) (test 27 meq/L 22-29 code = 355) BLOOD UREA NITROGEN 14 mg/dL 7-21 (BEAKER) (test code = 354) CREATININE (BEAKER) 0.96 mg/dL 0.57-1.25 (test code = 358) GLUCOSE RANDOM 92 mg/dL 70-105 (BEAKER) (test code = 652) CALCIUM (BEAKER) 7.8 mg/dL 8.4-10.2 L (test code = 697) EGFR (BEAKER) (test 80 mL/min/1.73 ESTIMA MELLY GFR IS code = 1092) sq m NOT ACCURATE CREATININE CLEARANCE IN PREDICTING GLOMERULAR FILTRATION RATE . ESTIMATED GFR I S NOT APPLICABLE FOR DIALYSIS PATIEN TS. Mathematics Lecturer ID - AURELIO [id number] 07:16:00 Test Item Value Reference Range Interpretation Comments MAGNESIUM (BEAKER) (test code = 1.8 mg/dL 1.6-2.6 627) Mathematics Lecturer ID - AURELIO [id number] 07:16:00 Test Item Value Reference Range Interpretation Comments PHOSPHORUS (BEAKER) (test code = 1.7 mg/dL 2.3-4.7 L 604) Mathematics Lecturer ID - AURELIO MCBC W/PLT COUNT & AUTO [id number] 06:54:00 Test Item Value Reference Range Interpretation Comments WHITE BLOOD CELL COUNT (BEAKER) 4.2 K/ L 3.5-10.5 (test code = 775) RED BLOOD CELL COUNT (BEAKER) 3.46 M/ L 4.63-6.08 L (test code = 761) HEMOGLOBIN (BEAKER) (test code = 11.2 GM/DL 13.7-17.5 L 410) HEMATOCRIT (BEAKER) (test code = 33.4 % 40.1-51.0 L 411) MEAN CORPUSCULAR VOLUME (BEAKER) 96.5 fL 79.0-92.2 H (test code = 753) MEAN CORPUSCULAR HEMOGLOBIN 32.4 pg 25.7-32.2 H (BEAKER) (test code = 751) MEAN CORPUSCULAR HEMOGLOBIN CONC 33.5 GM/DL 32.3-36.5 (BEAKER) (test code = 752) RED CELL DISTRIBUTION WIDTH 12.9 % 11.6-14.4 (BEAKER) (test code = 412) PLATELET COUNT (BEAKER) (test code 85 K/CU MM 150-450 L = 756) MEAN PLATELET VOLUME (BEAKER) 9.8 fL 9.4-12.4 (test code = 754) NUCLEATED RED BLOOD CELLS (BEAKER) 0 /100 WBC 0-0 (test code = 413) NEUTROPHILS RELATIVE PERCENT 68 % (BEAKER) (test code = 429) LYMPHOCYTES RELATIVE PERCENT 15 % (BEAKER) (test code = 430) MONOCYTES RELATIVE PERCENT 15 % (BEAKER) (test code = 431) EOSINOPHILS RELATIVE PERCENT 2 % (BEAKER) (test code = 432) BASOPHILS RELATIVE PERCENT 1 % (BEAKER) (test code = 437) NEUTROPHILS ABSOLUTE COUNT 2.85 K/ L 1.78-5.38 (BEAKER) (test code = 670) LYMPHOCYTES ABSOLUTE COUNT 0.62 K/ L 1.32-3.57 L (BEAKER) (test code = 414) MONOCYTES ABSOLUTE COUNT (BEAKER) 0.63 K/ L 0.30-0.82 (test code = 415) EOSINOPHILS ABSOLUTE COUNT 0.07 K/ L 0.04-0.54 (BEAKER) (test code = 416) BASOPHILS ABSOLUTE COUNT (BEAKER) 0.02 K/ L 0.01-0.08 (test code = 417) IMMATURE GRANULOCYTES-RELATIVE 1 % 0-1 PERCENT (BEAKER) (test code = 2801) HEPATITIS C PCR, [id number] 21:21:00 Test Item Value Reference Range Interpretation Comments HCV NUMERIC RESULT (BEAKER) [id number] IU/mL <15 H (test code = 0570) This test uses a Real-Time Polymerase Chain Reaction (RT-PCR) methodology and was performed using [employer] Ampliprep/HAROLDO TaqMan HCV test kit version 2.0 ([employer]).Reportable range for this assay is 15 - 100,000,000 IU per mL (1.18 - 8.00 Log IU/mL).BLOOD CULTURE IDENTIFICATION [id number] 11:58:00 Test Item Value Reference Interpretation Comments Range LISTERIA MONOCYTOGENES Not detected Not detected (test code = 5051733) STAPHYLOCOCCUS (test Not detected Not detected code = 0335645) STAPHYLOCOCCUS AUREUS Not detected Not detected (test code = 8318026) STREPTOCOCCUS (test code Not detected Not detected = 3265593) STREPTOCOCCUS AGALACTIAE Not detected Not detected (GROUP B) (test code = 5736202) STREPTOCOCCUS PNEUMONIAE Not detected Not detected (test code = 5474204) STREPTOCOCCUS PYOGENES Not detected Not detected (GROUP A) (test code = 2211121) ACINETOBACTER BAUMANNII Not detected Not detected (test code = 3225966) HAEMOPHILUS INFLUENZAE Not detected Not detected (test code = 4419923) NEISSERIA MENINGITIDIS Not detected Not detected (test code = 2239905) ENTEROBACTERIACEAE (test Detected Not detected A code = 3653280) ENTEROBACTER CLOACOE Not detected Not detected COMPLEX (test code = 1142038) KLEBSIELLA OXYTOCA (test Not detected Not detected code = 4816829) KLEBSIELLA PNEUMONIAE Not detected Not detected (test code = 1650) PROTEUS (test code = Not detected Not detected 5254385) SERRATIA MARCESCENS Not detected Not detected (test code = 3198803) ANALY ALBICANS (test Not detected Not detected code = 0129019) ANALY GLABRATA (test Not detected Not detected code = 3075197) ANALY KRUSEI (test Not detected Not detected code = [id number]) ANLAY PARAPSILOSIS Not detected Not detected (test code = 1537466) ANALY TROPICALIS (test Not detected Not detected code = 2402661) ESCHERICHIA COLI (test Detected Not detected A Esche richia coliKPC code = 9223819) not detected (a carbapenamase gene)First-line therapy: MeropenemDe-esc alat e based on susceptibilitie s.Th is test does no t evaluate for ESBLReference Range: Not Dete cted METHICILLIN-RESISTANCE GENE (test code = 3889201) VANCOMYCIN-RESISTANCE GENE (test code = 4603130) CARBAPENEM-RESISTANCE Not detected Not detected Note: Antimicrobial GENE (test code = resistance can 9784850) occur via multi ple mechanisms. A N ot Detected result for the FilmArray antimicrobial resistance gene assays does not indicate antimicrobial susceptibility. Subculturing is required for species identification and susceptibility testing of isolates.KARIE G: A Not Detected re sult for the KPC gen e does not indica te susceptibility to carbapenems. Gr am negative bacter ia can be resistan t to carbapenems by mechanisms othe r than carrying t he KPC gene. ENTEROCOCCUS-BEAKER Not detected Not detected (test code = ) PSEUDOMONAS Not detected Not detected AERUGINOSA-BEAKER (test code = ) Other bacteria and resistance markers not targeted by this PCR panel cannot be excluded; therefore clinical correlation and follow up of serology, culture results, and other molecular studies is required. The results are not intended to be used as the sole means for clinical diagnosis or patient management decisions. This sample was tested at the [facility] using the YellowSchedule Blood Culture ID Panel. It is FDA cleared and has been verified and approved by the [facility] for clinical use. This laboratory is CLIA-certified and College ofAmerican Pathologists (CAP)-accredited to perform high complexity testing.BLOOD CULTURE 2020-10-17 07:48:00 Test Item Value Reference Interpretation Comments Range Culture POSITIVE Observations (test BLOOD code = COB1) CULTURE Culture 2 OF 4 BOTTLES Observations (test code = COB2) Isolate 1 (test Escherichia coli A CONFIRMA TORY TEST FOR code = ISO1) THIS ORGANISM INDICATES UNUSU AL RESISTANCE. EXTENDEDSPECTRU M BETA-LACTAMASE PRODUCTION. INFECTIOUS DISE ASE CONSULT SUGGEST ED ampicillin/sulbact ug/mL S am (test code = ams) piperacillin/tazob ug/mL S actam (test code = tzp) ceftazidime (test ug/mL R code = tenisha) ceftriaxone1 (test ug/mL R code = ctr) cefepime (test ug/mL R code = fep) aztreonam (test ug/mL R code = azm) ertapenem (test ug/mL S code = etp) meropenem (test ug/mL S code = mem) gentamicin (test ug/mL R code = gm) tobramycin (test ug/mL I code = tob) levofloxacin (test ug/mL R code = lev) trimethoprim/sulfa ug/mL S methoxazole (test code = sxt) BASIC METABOLIC [id number] 06:46:00 Test Item Value Reference Range Interpretation Comments SODIUM (BEAKER) 136 meq/L 136-145 (test code = 381) POTASSIUM (BEAKER) 4.8 meq/L 3.5-5.1 (test code = 379) CHLORIDE (BEAKER) 107 meq/L 98-107 (test code = 382) CO2 (BEAKER) (test 24 meq/L 22-29 code = 355) BLOOD UREA NITROGEN 19 mg/dL 7-21 (BEAKER) (test code = 354) CREATININE (BEAKER) 1.12 mg/dL 0.57-1.25 (test code = 358) GLUCOSE RANDOM 104 mg/dL 70-105 (BEAKER) (test code = 652) CALCIUM (BEAKER) 8.3 mg/dL 8.4-10.2 L (test code = 697) EGFR (BEAKER) (test 67 mL/min/1.73 ESTIMA MELLY GFR IS code = 1092) sq m NOT ACCURATE CREATININE CLEARANCE IN PREDICTING GLOMERULAR FILTRATION RATE . ESTIMATED GFR I S NOT APPLICABLE FOR DIALYSIS PATIEN TS. Mathematics Lecturer ID - [id number] 06:46:00 Test Item Value Reference Range Interpretation Comments MAGNESIUM (BEAKER) (test code = 1.8 mg/dL 1.6-2.6 627) Mathematics Lecturer ID - [id number] 06:46:00 Test Item Value Reference Range Interpretation Comments PHOSPHORUS (BEAKER) (test code = 1.6 mg/dL 2.3-4.7 L 604) Mathematics Lecturer ID - DBCBC W/PLT COUNT & AUTO [id number] 06:09:00 Test Item Value Reference Range Interpretation Comments WHITE BLOOD CELL COUNT (BEAKER) 7.0 K/ L 3.5-10.5 (test code = 775) RED BLOOD CELL COUNT (BEAKER) 3.33 M/ L 4.63-6.08 L (test code = 761) HEMOGLOBIN (BEAKER) (test code = 11.0 GM/DL 13.7-17.5 L 410) HEMATOCRIT (BEAKER) (test code = 32.8 % 40.1-51.0 L 411) MEAN CORPUSCULAR VOLUME (BEAKER) 98.5 fL 79.0-92.2 H (test code = 753) MEAN CORPUSCULAR HEMOGLOBIN 33.0 pg 25.7-32.2 H (BEAKER) (test code = 751) MEAN CORPUSCULAR HEMOGLOBIN CONC 33.5 GM/DL 32.3-36.5 (BEAKER) (test code = 752) RED CELL DISTRIBUTION WIDTH 13.1 % 11.6-14.4 (BEAKER) (test code = 412) PLATELET COUNT (BEAKER) (test code 85 K/CU MM 150-450 L = 756) MEAN PLATELET VOLUME (BEAKER) 10.0 fL 9.4-12.4 (test code = 754) NUCLEATED RED BLOOD CELLS (BEAKER) 0 /100 WBC 0-0 (test code = 413) NEUTROPHILS RELATIVE PERCENT 78 % (BEAKER) (test code = 429) LYMPHOCYTES RELATIVE PERCENT 8 % (BEAKER) (test code = 430) MONOCYTES RELATIVE PERCENT 12 % (BEAKER) (test code = 431) EOSINOPHILS RELATIVE PERCENT 1 % (BEAKER) (test code = 432) BASOPHILS RELATIVE PERCENT 0 % (BEAKER) (test code = 437) NEUTROPHILS ABSOLUTE COUNT 5.47 K/ L 1.78-5.38 H (BEAKER) (test code = 670) LYMPHOCYTES ABSOLUTE COUNT 0.59 K/ L 1.32-3.57 L (BEAKER) (test code = 414) MONOCYTES ABSOLUTE COUNT (BEAKER) 0.84 K/ L 0.30-0.82 H (test code = 415) EOSINOPHILS ABSOLUTE COUNT 0.06 K/ L 0.04-0.54 (BEAKER) (test code = 416) BASOPHILS ABSOLUTE COUNT (BEAKER) 0.02 K/ L 0.01-0.08 (test code = 417) IMMATURE GRANULOCYTES-RELATIVE 1 % 0-1 PERCENT (BEAKER) (test code = 2801) DIRECT STREP GROUP [id number] 11:52:00 Test Item Value Reference Range Interpretation Comments Culture Observations NO BETA HEMOLYTIC (test code = COB1) STREPTOCOCCUS ISOLATED Direct Exam (test code NEGATIVE FOR STREP A = DE3) ANTIGEN URINE [id number] 10:57:00 Test Item Value Reference Range Interpretation Comments Isolate 1 (test code = ISO1) Escherichia coli A ampicillin/sulbactam (test ug/mL S code = ams) piperacillin/tazobactam ug/mL S (test code = tzp) cefazolin (test code = cz) ug/mL R ceftazidime (test code = ug/mL R tenisha) ceftriaxone1 (test code = ug/mL R ctr) cefepime (test code = fep) ug/mL R aztreonam (test code = azm) ug/mL R ertapenem (test code = etp) ug/mL S meropenem (test code = mem) ug/mL S gentamicin (test code = gm) ug/mL R tobramycin (test code = tob) ug/mL I levofloxacin (test code = ug/mL R lev) nitrofurantoin (test code = ug/mL S ftn) trimethoprim/sulfamethoxazol ug/mL S e (test code = sxt) SARS-COV2/RT-PCR ([facility])2020-10-16 08:38:00 Test Item Value Reference Range Interpretation Comments SARS-COV2/RT-PCR (test Negative Not Detected, Negative, code = 5048677) See external report for linked test SARS-COV-2 PERFORMING LAB [facility] (test code = 2332255) Negative result for this test determines that SARS-CoV-2 RNA was not present in the specimen above the Limit of Detection (LOD). However, Negative results do not preclude SARS-CoV-2 infection and should not be used as the sole basis for treatment or patient management decisions. Negative results must be combined with clinical observations, patient history, and epidemiological information. A false negative result may occur if a specimen is improperly collected, transported or handled. A false negative result should be considered if patient's recent exposures or clinical presentation indicate that COVID-19 (SARS-CoV-2) is likely and diagnostic tests for other causes of illness are negative. Re-testing should be considered in cases of suspected false negatives.The limit of detection for this assay is 800 copies/mL.This SARS CoV-2 test is a real-time RT-PCR test intended for the qualitative detection of nucleic acid from SARS-CoV-2 in a nasopharyngeal swab specimen collected from individuals suspected of COVID-19 by their healthcare provider.This test has not been Food and Drug Administration (FDA) cleared or approved. This is a modified version of an approved Emergency Use Authorization (EUA) and is in the process of review by the FDA. Once authorized by the FDA, the issued EUA will be effective until the declaration that circumstances exist justifying the authorization of the emergency use ofin vitro diagnostic tests for detection and/or diagnosis of COVID-19 is terminated under Section 564(b)(2) of the Act or the EUA is revoked under Section 564(g) of the Act.Fact Sheet for Healthcare Prov iders:https://www.[employer]/sites/default/files/product/documents/Fact_Sheet_HC _Lrisnfpjv_Ippc_BWDY-WcZ-2.pdfFact Sheet for Healthcare Patients:https://www.[employer]/sites/default/files/product/docume nts/Oypv_Ikqnr_Qlcfyfqd_Msnz_OGNI-RcX-0.pdfPerforming Laboratory:[facility], [place] [id number] 03:48:00 Test Item Value Reference Range Interpretation Comments MAGNESIUM (BEAKER) 1.7 mg/dL 1.6-2.6 Specimen slightly (test code = 627) hemolyzed Mathematics Lecturer ID - DBBASIC METABOLIC [id number] 03:48:00 Test Item Value Reference Range Interpretation Comments SODIUM (BEAKER) 134 meq/L 136-145 L (test code = 381) POTASSIUM (BEAKER) 4.1 meq/L 3.5-5.1 Specimen slightly (test code = 379) hemolyzed CHLORIDE (BEAKER) 109 meq/L 98-107 H (test code = 382) CO2 (BEAKER) (test 19 meq/L 22-29 L code = 355) BLOOD UREA NITROGEN 22 mg/dL 7-21 H (BEAKER) (test code = 354) CREATININE (BEAKER) 1.15 mg/dL 0.57-1.25 Specimen slightly (test code = 358) hemolyzed GLUCOSE RANDOM 132 mg/dL 70-105 H (BEAKER) (test code = 652) CALCIUM (BEAKER) 8.1 mg/dL 8.4-10.2 L (test code = 697) EGFR (BEAKER) (test 65 mL/min/1.73 ESTIMA MELLY GFR IS code = 1092) sq m NOT ACCURATE CREATININE CLEARANCE IN PREDICTING GLOMERULAR FILTRATION RATE . ESTIMATED GFR I S NOT APPLICABLE FOR DIALYSIS PATIEN TS. Mathematics Lecturer ID - DBCBC W/PLT COUNT & AUTO [id number] 03:35:00 Test Item Value Reference Range Interpretation Comments WHITE BLOOD CELL COUNT (BEAKER) 9.3 K/ L 3.5-10.5 (test code = 775) RED BLOOD CELL COUNT (BEAKER) 3.40 M/ L 4.63-6.08 L (test code = 761) HEMOGLOBIN (BEAKER) (test code = 11.2 GM/DL 13.7-17.5 L 410) HEMATOCRIT (BEAKER) (test code = 33.2 % 40.1-51.0 L 411) MEAN CORPUSCULAR VOLUME (BEAKER) 97.6 fL 79.0-92.2 H (test code = 753) MEAN CORPUSCULAR HEMOGLOBIN 32.9 pg 25.7-32.2 H (BEAKER) (test code = 751) MEAN CORPUSCULAR HEMOGLOBIN CONC 33.7 GM/DL 32.3-36.5 (BEAKER) (test code = 752) RED CELL DISTRIBUTION WIDTH 13.2 % 11.6-14.4 (BEAKER) (test code = 412) PLATELET COUNT (BEAKER) (test code 86 K/CU MM 150-450 L = 756) MEAN PLATELET VOLUME (BEAKER) 11.2 fL 9.4-12.4 (test code = 754) NUCLEATED RED BLOOD CELLS (BEAKER) 0 /100 WBC 0-0 (test code = 413) NEUTROPHILS RELATIVE PERCENT 84 % (BEAKER) (test code = 429) LYMPHOCYTES RELATIVE PERCENT 6 % (BEAKER) (test code = 430) MONOCYTES RELATIVE PERCENT 10 % (BEAKER) (test code = 431) EOSINOPHILS RELATIVE PERCENT 0 % (BEAKER) (test code = 432) BASOPHILS RELATIVE PERCENT 0 % (BEAKER) (test code = 437) NEUTROPHILS ABSOLUTE COUNT 7.79 K/ L 1.78-5.38 H (BEAKER) (test code = 670) LYMPHOCYTES ABSOLUTE COUNT 0.51 K/ L 1.32-3.57 L (BEAKER) (test code = 414) MONOCYTES ABSOLUTE COUNT (BEAKER) 0.93 K/ L 0.30-0.82 H (test code = 415) EOSINOPHILS ABSOLUTE COUNT 0.04 K/ L 0.04-0.54 (BEAKER) (test code = 416) BASOPHILS ABSOLUTE COUNT (BEAKER) 0.02 K/ L 0.01-0.08 (test code = 417) IMMATURE GRANULOCYTES-RELATIVE 0 % 0-1 PERCENT (BEAKER) (test code = 2801) HEPATITIS B [id number] 18:28:00 Test Item Value Reference Range Interpretation Comments HEPATITIS B CORE TOTAL ANTIBODY Nonreactive Nonreactive (BEAKER) (test code = 497) HEPATITIS B SURFACE ANTIBODY < mIU/mL <8.0 (BEAKER) (test code = 647) HEPATITIS B SURFACE ANTIGEN (2) Nonreactive Nonreactive (BEAKER) (test code = 2585) Mathematics Lecturer ID - DBHEPATITIS PANEL, [id number] 18:27:00 Test Item Value Reference Range Interpretation Comments HEPATITIS A IGM ANTIBODY (BEAKER) Nonreactive Nonreactive (test code = 498) HEPATITIS B CORE IGM ANTIBODY Nonreactive Nonreactive (BEAKER) (test code = 645) HEPATITIS C ANTIBODY (BEAKER) Reactive Nonreactive A (test code = 367) HEPATITIS B SURFACE ANTIGEN (2) Nonreactive Nonreactive (BEAKER) (test code = 2585) Mathematics Lecturer ID - DBURINALYSIS W/ REFLEX URINE [id number] 17:10:00 Test Item Value Reference Range Interpretation Comments COLOR (BEAKER) (test code = 470) Yellow CLARITY (BEAKER) (test code = 469) Clear SPECIFIC GRAVITY UA (BEAKER) (test 1.026 1.001-1.035 code = 468) PH UA (BEAKER) (test code = 467) 6.5 5.0-8.0 PROTEIN UA (BEAKER) (test code = 70 mg/dL Negative A 464) GLUCOSE UA (BEAKER) (test code = Negative Negative 365) KETONES UA (BEAKER) (test code = Negative Negative 371) BILIRUBIN UA (BEAKER) (test code = Negative Negative 462) BLOOD UA (BEAKER) (test code = Large Negative A 461) NITRITE UA (BEAKER) (test code = Negative Negative 465) LEUKOCYTE ESTERASE UA (BEAKER) Large Negative A (test code = 466) UROBILINOGEN UA (BEAKER) (test 0.2 mg/dL 0.2-1.0 code = 463) RBC UA (BEAKER) (test code = 519) 114 /HPF WBC UA (BEAKER) (test code = 520) 88 /HPF SQUAMOUS EPITHELIAL (BEAKER) (test < /HPF code = 516) YEAST (BEAKER) (test code = 1585) Occasional SOURCE(BEAKER) (test code = 2795) Mathematics Lecturer ID - [auto]Mathematics Lecturer ID - techB-TYPE NATRIURETIC FACTOR (BNP)2020-10-15 16:52:00 Test Item Value Reference Range Interpretation Comments B-TYPE NATRIURETIC PEPTIDE (BEAKER) 222 pg/mL 0-100 H (test code = 700) Mathematics Lecturer ID - DBHIGH SENSITIVITY TROPONIN [id number] 16:50:00 Test Item Value Reference Range Interpretation Comments HIGH SENSITIVITY 6 pg/ml See_Comment [Automated message] TROPONIN I (test code = The system which [id number]) generated this result transmitted ref erence range: <=35. Th e reference range was not used to interpr et this result as normal/abnormal . Mathematics Lecturer ID - DBThe BOILER ASSISTANT OPERATOR STAT High Sensitivity Troponin-I results should be used in conjunctionwith other diagnostic information such as ECG, clinical observations and information, and patient symptoms to aid in the diagnosis of ME.COMPREHENSIVE METABOLIC [id number] 16:47:00 Test Item Value Reference Range Interpretation Comments TOTAL PROTEIN 5.7 gm/dL 6.0-8.3 L Specimen moder ately (BEAKER) (test code = hemoly zed 770) ALBUMIN (BEAKER) 2.8 g/dL 3.5-5.0 L Specimen mo derately (test code = 1145) hemolyzed ALKALINE PHOSPHATASE 71 U/L 40-150 (BEAKER) (test code = 346) BILIRUBIN TOTAL 0.4 mg/dL 0.2-1.2 Specimen mod erately (BEAKER) (test code = hemoly zed 377) SODIUM (BEAKER) (test 137 meq/L 136-145 code = 381) POTASSIUM (BEAKER) 4.8 meq/L 3.5-5.1 Specimen moderately (test code = 379) hemolyzed CHLORIDE (BEAKER) 114 meq/L 98-107 H (test code = 382) CO2 (BEAKER) (test 19 meq/L 22-29 L code = 355) BLOOD UREA NITROGEN 25 mg/dL 7-21 H (BEAKER) (test code = 354) CREATININE (BEAKER) 1.33 mg/dL 0.57-1.25 H Specimen moderately (test code = 358) hemolyzed GLUCOSE RANDOM 155 mg/dL 70-105 H (BEAKER) (test code = 652) CALCIUM (BEAKER) 7.9 mg/dL 8.4-10.2 L (test code = 697) AST (SGOT) (BEAKER) 104 U/L 5-34 H Specimen moderately (test code = 353) hemolyzed ALT (SGPT) (BEAKER) 83 U/L 6-55 H Specimen moderately (test code = 347) hemolyzed EGFR (BEAKER) (test 55 mL/min/1.73 ESTIMA MELLY GFR IS code = 1092) sq m NOT ACCURATE CREATININE CLEARANCE IN PREDICTING GLOMERULAR FILTRATION RATE . ESTIMATED GFR I S NOT APPLICABLE FOR DIALYSIS PATIEN TS. Mathematics Lecturer ID - [id number] 16:44:00 Test Item Value Reference Range Interpretation Comments AMYLASE (BEAKER) (test 29 U/L 25-125 Speci men moderately code = 349) hemolyzed Mathematics Lecturer ID - [id number] 16:44:00 Test Item Value Reference Range Interpretation Comments LIPASE (BEAKER) (test code = 749) 36 U/L 8-78 Mathematics Lecturer ID - [id number] 16:31:00 Test Item Value Reference Range Interpretation Comments PARTIAL THROMBOPLASTIN TIME 27.9 seconds 22.5-36.0 (BEAKER) (test code = 760) PROTHROMBIN TIME/[id number] 16:30:00 Test Item Value Reference Range Interpretation Comments PROTIME (BEAKER) 16.2 seconds 11.9-14.2 H (test code = 759) INR (BEAKER) (test 1.34 See_Comment [Automat ed message] code = 370) The system [employer] generated this result transmitted ref erence range: <=5.90. The reference range was not used to int erpret this result as normal/abnormal . Effective 11/12/2018: PT Reference Range ChangeNew: 11.9-14.2 Previous: 11.7- 14.7RECOMMENDED COUMADIN/WARFARIN INR THERAPY RANGESSTANDARD DOSE: 2.0-3.0 Includes: PROPHYLAXIS for venous thrombosis, systemic embolization; TREATMENT for venous thrombosis and/or pulmonary embolus.HIGH RISK: Target INR is 2.5-3.5 for patients wiht mechanical heart valves.CBC W/PLT COUNT & AUTO [id number] 16:23:00 Test Item Value Reference Range Interpretation Comments WHITE BLOOD CELL COUNT (BEAKER) 13.5 K/ L 3.5-10.5 H (test code = 775) RED BLOOD CELL COUNT (BEAKER) 3.57 M/ L 4.63-6.08 L (test code = 761) HEMOGLOBIN (BEAKER) (test code = 12.0 GM/DL 13.7-17.5 L 410) HEMATOCRIT (BEAKER) (test code = 35.0 % 40.1-51.0 L 411) MEAN CORPUSCULAR VOLUME (BEAKER) 98.0 fL 79.0-92.2 H (test code = 753) MEAN CORPUSCULAR HEMOGLOBIN 33.6 pg 25.7-32.2 H (BEAKER) (test code = 751) MEAN CORPUSCULAR HEMOGLOBIN CONC 34.3 GM/DL 32.3-36.5 (BEAKER) (test code = 752) RED CELL DISTRIBUTION WIDTH 13.2 % 11.6-14.4 (BEAKER) (test code = 412) PLATELET COUNT (BEAKER) (test code 61 K/CU MM 150-450 L = 756) MEAN PLATELET VOLUME (BEAKER) 10.4 fL 9.4-12.4 (test code = 754) NUCLEATED RED BLOOD CELLS (BEAKER) 0 /100 WBC 0-0 (test code = 413) NEUTROPHILS RELATIVE PERCENT 87 % (BEAKER) (test code = 429) LYMPHOCYTES RELATIVE PERCENT 3 % (BEAKER) (test code = 430) MONOCYTES RELATIVE PERCENT 9 % (BEAKER) (test code = 431) EOSINOPHILS RELATIVE PERCENT 0 % (BEAKER) (test code = 432) BASOPHILS RELATIVE PERCENT 0 % (BEAKER) (test code = 437) NEUTROPHILS ABSOLUTE COUNT 11.71 K/ L 1.78-5.38 H (BEAKER) (test code = 670) LYMPHOCYTES ABSOLUTE COUNT 0.37 K/ L 1.32-3.57 L (BEAKER) (test code = 414) MONOCYTES ABSOLUTE COUNT (BEAKER) 1.23 K/ L 0.30-0.82 H (test code = 415) EOSINOPHILS ABSOLUTE COUNT 0.01 K/ L 0.04-0.54 L (BEAKER) (test code = 416) BASOPHILS ABSOLUTE COUNT (BEAKER) 0.02 K/ L 0.01-0.08 (test code = 417) IMMATURE GRANULOCYTES-RELATIVE 1 % 0-1 PERCENT (BEAKER) (test code = 2801) RAD, CHEST, 1 VIEW, NON [id number] 15:40:00Reason for exam:->chest painShould this be performed at the bedside?->Yes [facility] 1960 Sex: MFINAL REPORT INDICATION: chest pain COMPARISON: None TECHNIQUE: Single frontal view of the chest. FINDINGS: Lungs and pleura: Clear lungs. No effusion.Heart and mediastinum: Normal heart size. Unremarkable mediastinal contours.Osseous structures: No acute abnormality.Other: None. IMPRESSION: No acute intrathoracic abnormality. Signed: JR Hutchins Robert MDReport Verified Date/Time: 10/15/2020 15:40:11 Reading Location: [facility] C0[facility] Neuro Reading Room CT DISSECTION [id number] 11:30:12 [facility] : 1960 Sex: MEXAM: CTA ABDOMEN AND PELVIS WITHOUT AND WITH CONTRASTINDICATION: Aneurysm of thoracic aorta. Evaluate for aortic dissection.COMPARISON: None availableTECHNIQUE: Axial CT images of the abdomen and pelvis were obtained without contrast. Axial imaging after administration of intravenous contrast was obtained during the arterial phase followed by delayed phase imaging.IV contrast: 100 cc of Isovue-370DLP: 3401 mGy-cmFINDINGS: CTA:There is aneurysmal dilatation of the descending thoracic aorta measuring 4.5 x 4.5 cm in diameter. There is an intimal flap consistent with an aortic dissection distal to the origin of the left subclavian vein consistent with a type B aortic dissection. This dissection extends through to the infrarenal abdominal aorta. There is eccentric thrombus noted within the false lumen as well as within the distal abdominal aorta at the level of the bifurcation. The origins of the iliac artery, superior mesenteric artery, left renal artery and inferior mesenteric artery originate from the true lumen. 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 There are tworight renal arteries with the more superior renal artery originating from the false lumen and the inferior right renal artery originating from the true lumen. There are minimal atherosclerotic calcifications noted throughout the infrarenal abdominal aorta.CT:There is minimal bibasilar atelectasis. Theheart size is normal. No pleural or pericardial effusion.The liver is nodular in contour consistent with hepatic cirrhosis. The spleen is moderately enlarged measuring up to 14.5 x 14.4 x 8.3 cm. The pancreas, adrenal glands and gallbladder are normal. No intrahepatic biliary ductal dilatation. No liver lesions are identified. The portal and splenic veins are patent.There is significant perinephric stranding surrounding the right kidney with moderate hydronephrosis and right ureteral stents noted inplace. There are areas of decreased enhancement involving the superior and posterior aspects of the right kidney. There is enhancement of the uroepithelium noted in the right renal pelvis. There is significant stranding surrounding the right ureter and extending along the right paracolic gutter into the right hemipelvis. The left kidney is normal in size and enhancement. No nephrolithiasis, hydronephrosis, or perinephric stranding is identified on the left. There are multiple renal cysts noted within the right kidney. The urinary bladder is normal in appearance.The stomach, small bowel, large boweland appendix are normal. No evidence of bowel obstruction.The IVC is normal. No lymphadenopathy is identified in the abdomen or pelvis.The osseous structures are normal.IMPRESSION: 1. Type B aortic diss ection extending from the descending thoracic aorta to the infrarenal abdominal aorta. Of note, there are two right renal arteries with the superior right renal artery originating from the false lumen.There are areas of decreased enhancement in the right kidney concerning for possible areas of infarction.2. Redemonstration of the significant perinephric stranding and hydronephrosis of the right kidney consistent with an acute infectious process.3. Findings consistent with liver cirrhosis with moderate splenomegaly.The above findings were discussed with Dr. Villasenor at 11:20 AM via telephone.LOCATION: R16 This CT exam was performed according to our departmental dose optimization program, which includes automated exposure control, adjustment of the mA and/or kV according to the patient size and/or use of iterative reconstructive technique.Electronically signed by: Indiana Larkin MD 10/15/2020 11:30 AM CDT [id number] METABOLIC [id number] 05:55:00 Test Item Value Reference Range Interpretation Comments GLUCOSE (test code 127 mg/dL 75-100 H = 06D) SODIUM (test code 138 mmol/L 136-145 = 01A) POTASSIUM (test 3.8 mmol/L 3.6-5.1 code = 01B) CHLORIDE (test 110 mmol/L 98-107 H code = 04A) CO2 (test code = 21 mmol/L 22-32 L 02A) ANION GAP (test 10.8 mmol/L code = ANG) BUN (test code = 28 mg/dL 7-18 H 05D) CREATININE (test 1.7 mg/dL 0.7-1.3 H code = 03E) GFR (test code = 44 See_Comment L [Automated GFR) mL/min/1.73m\\S\\2 message] Th e system which generated this result transmit melly reference range : >=90. The reference range was not used to interpret this result as normal/abnormal . GFR 51 See_Comment L [Automated [place] (test mL/min/1.73m\\S\\2 message] The code = GFRAA) system which generated this result transmit melly reference range : >=90. The reference range was not used to interpret this result as normal/abnormal . EGFR (test code = eGFR BY EGFR) CKD-EPI CALCULATION IS NOT RECOMMENDED FOR PATIENTS UNDER 18 YEARS OF AGE. BUN/CREA (test 17 06-05 code = BCR) CALCIUM (test code 7.9 mg/dL 8.3-9.5 L = 09D) LACTIC [id number] 05:53:00 Test Item Value Reference Range Interpretation Comments LACTIC ACD (test code = LA) 1.7 mmol/L 0.4-2.0 CBC (INCLUDES AUTOMATED DIFFERENTIAL)2020-10-15 05:36:00 Test Item Value Reference Range Interpretation Comments WBC (test code = WBC) 15.1 10\\S\\3/uL 4.5-11.0 H RBC (test code = RBC) 3.72 10\\S\\6/uL 4.20-5.60 L HGB (test code = HBG) 12.4 g/dL 14.0-18.0 L HCT (test code = HCT) 36.4 % 35.0-46.0 MCV (test code = MCV) 97.8 fL 80.0-94.0 H MCH (test code = MCH) 33.3 pg 27.0-31.0 H MCHC (test code = MCHC) 34.1 g/dL 32.0-36.0 RDW (test code = RDW) 12.9 % 11.5-14.5 PLT (test code = PLT) 75 10\\S\\3/uL 130-400 L MPV (test code = MPV) 10.2 fL 9.4-12.4 NEUTROP # (test code = NE#) 13.0 10\\S\\3/uL 2.0-8.0 H LYMPH # (test code = LY#) 0.4 10\\S\\3/uL 1.2-4.0 L MONOCYTE # (test code = MO#) 1.4 10\\S\\3/uL 0.0-1.1 H EOSINOPH # (test code = EO#) 0.0 10\\S\\3/uL 0.0-0.7 BASOPHIL # (test code = BA#) 0.0 10\\S\\3/uL 0.0-0.3 IG # (test code = IG#) 0.18 10\\S\\3/uL 0.00-0.06 H NRBC # (test code = NRBC#) 0.00 10\\S\\3/uL 0.00-0.01 NEUTROPH % (test code = NE%) 86.5 % 35.0-73.0 H LYMPH % (test code = LY%) 2.9 % 20.0-55.0 L MONO % (test code = MO%) 9.2 % 2.5-10.0 EOSINOPH % (test code = EO%) 0.1 % 0.0-5.0 BASOPHIL % (test code = BA%) 0.1 % 0.0-2.0 IG % (test code = IG%) 1.2 % 0.0-0.8 H NRBC% (test code = NRBC%) 0.0 % 0.0-0.2 MANDIFF (test code = MDIFF) NO NO RBC MORPH (test code = RBCMOR) NORMAL CT STONE PROTOCOL [id number] 18:42:08 [facility] : 1960 Sex: MEXAMINATION:CT ST ONE PROTOCOL STUDYCLINICAL INDICATION:Male, 60 years old with Fever; Urinary tract infectious diseaseTECHNIQUE: Thin section axial noncontrast contiguous images were obtained through the abdomen and pelvis followed by coronal and sagittal multiplanar reformations.One or more of the following dose reduction techniques were used: Automated exposure control, adjustment of the mA and/or kV according to patient size, and/or iterative reconstruction. COMPARISON:11/20/2016FINDINGS:Characterization of the solid organs is limited by lack of contrast media.Lower Chest: Visualized lung bases are clear. Heart is normal in size. No pericardial or pleural effusion.Hepatobiliary: Nodular liver with no obvious liver or splenic mass on noncontrast scan. Mild splenomegaly. No calcified gallstones or obvious biliarydilatation. Pancreas appears normal.Adrenals: Normal configuration.: A right ureteral stent has been placed. Stone in the right mid ureter is partially seen and may be slightly smaller. Additional stones in both kidneys again seen. The left collecting system is decompressed. Suspect cortical cysts, measuring up to 16 mm on the right. The bladder is not well distended.GI: Moderate constipation. Normal appendix. No obstruction, inflammatory changes, free fluid or free air. No bowel containing hernias.Retroperitoneum and pelvis: Interval increase size of the aorta. The descending thoracic aorta measures 5.2 cm and there is likely eccentric mural thrombus not well demonstrated on noncontrast scan. The abdominal aorta is also slightly more dilated measuring 3.8 cm compared to 2.6 cm on the prior study. The origins of the common iliac arteries are also dilated measuring 2 cm on the right and 1.5 cm on the left, normal should be less than 10 mm. No ascites, mass or adenopathy in the pelvis.Bones andsoft tissues: Unremarkable.IMPRESSION:1. Comparison made to 11/20/2016.2. A right ureteral stent has been placed. Previously noted stone in the right mid ureter is partially seen but appears smaller.3. Stable bilateral nephrolithiasis and likely cysts.4. With cirrhotic liver with splenomegaly.5. Interval development of thoracoabdominal aneurysm and common iliac aneurysms. There appears to be eccentric mural thrombus of the distal thoracic aortic aneurysm.Electronically signed by: Reta Montero MD 10/14/2020 6:42 PM CDT -RmT (RAPID ANTIGEN)2020-10-14 16:51:00 Test Item Value Reference Range Interpretation Comments SARS-CoV (ANTIGEN) NEGATIVE NEGATIVE (test code = COVAG) COVID AG (test This test has been code = COVAGC) marketed under the FDA Emergency Use Authorization (EUA) to meet challenges of the COVID-19 pandemic. The validation standards normally enforced by the FDA and the [employer] (CAP) are more stringent than those required for this test. Therefore, the result should be interpreted with caution and close attention to other clinical and epidemiological data LACTIC [id number] 16:47:00 Test Item Value Reference Range Interpretation Comments LACTIC ACD (test code = LA) 1.5 mmol/L 0.4-2.0 CARDIAC [id number] 16:47:00 Test Item Value Reference Range Interpretation Comments TROPONIN I (test code = A84) <0.015 ng/mL 0.000-0.045 COMPREHENSIVE METABOLIC [id number] 16:47:00 Test Item Value Reference Range Interpretation Comments GLUCOSE (test code 116 mg/dL 75-100 H = 06D) SODIUM (test code 133 mmol/L 136-145 L = 01A) POTASSIUM (test 4.0 mmol/L 3.6-5.1 code = 01B) CHLORIDE (test 103 mmol/L 98-107 code = 04A) CO2 (test code = 23 mmol/L 22-32 02A) ANION GAP (test 11.0 mmol/L code = ANG) BUN (test code = 27 mg/dL 7-18 H 05D) CREATININE (test 1.8 mg/dL 0.7-1.3 H code = 03E) GFR (test code = 40 See_Comment L [Automated GFR) mL/min/1.73m\\S\\2 message] Th e system which generated this result transmit melly reference range : >=90. The reference range was not used to interpret this result as normal/abnormal . GFR 46 See_Comment L [Automated [place] (test mL/min/1.73m\\S\\2 message] The code = GFRAA) system which generated this result transmit melly reference range : >=90. The reference range was not used to interpret this result as normal/abnormal . EGFR (test code = eGFR BY EGFR) CKD-EPI CALCULATION IS NOT RECOMMENDED FOR PATIENTS UNDER 18 YEARS OF AGE. BUN/CREA (test 06-05 code = BCR) CALCIUM (test code 8.1 mg/dL 8.3-9.5 L = 09D) BILI TOTAL (test 1.2 mg/dL 0.2-1.0 H code = 11A) PROTEIN (test code 6.0 g/dL 6.4-8.2 L = 07D) ALBUMIN (test code 3.1 g/dL 3.5-4.8 L = 08D) GLOBULIN (test 2.9 g/dL 1.5-3.8 code = GLB) ALB/GLOB (test 1.1 1.0-2.6 code = AGRR) ALK PHOS (test 80 IU/L 42-121 code = 35A) AST (test code = 91 IU/L See_Comment H [Automated 30A) message] The system which generated this result transmit melly reference range : <=42. The reference range was not used to interpret this result as normal/abnormal . ALT (test code = 87 IU/L See_Comment H [Automated 31A) message] The system which generated this result transmit melly reference range : <=78. The reference range was not used to interpret this result as normal/abnormal . DIRECT INFLUENZA A AND B [id number] 16:45:00 Test Item Value Reference Range Interpretation Comments Direct Exam (test PRESUMPTIVE NEGATIVE FOR code = DE3) THE PRESENCE OF INFLUENZA ANTIGEN CBC (INCLUDES AUTOMATED DIFFERENTIAL)2020-10-14 16:35:00 Test Item Value Reference Range Interpretation Comments WBC (test code = WBC) 13.4 10\\S\\3/uL 4.5-11.0 H RBC (test code = RBC) 3.78 10\\S\\6/uL 4.20-5.60 L HGB (test code = HBG) 12.6 g/dL 14.0-18.0 L HCT (test code = HCT) 37.3 % 35.0-46.0 MCV (test code = MCV) 98.7 fL 80.0-94.0 H MCH (test code = MCH) 33.3 pg 27.0-31.0 H MCHC (test code = MCHC) 33.8 g/dL 32.0-36.0 RDW (test code = RDW) 13.0 % 11.5-14.5 PLT (test code = PLT) 100 10\\S\\3/uL 130-400 L MPV (test code = MPV) 9.8 fL 9.4-12.4 NEUTROP # (test code = NE#) 12.4 10\\S\\3/uL 2.0-8.0 H LYMPH # (test code = LY#) 0.4 10\\S\\3/uL 1.2-4.0 L MONOCYTE # (test code = MO#) 0.5 10\\S\\3/uL 0.0-1.1 EOSINOPH # (test code = EO#) 0.0 10\\S\\3/uL 0.0-0.7 BASOPHIL # (test code = BA#) 0.0 10\\S\\3/uL 0.0-0.3 IG # (test code = IG#) 0.12 10\\S\\3/uL 0.00-0.06 H NRBC # (test code = NRBC#) 0.00 10\\S\\3/uL 0.00-0.01 NEUTROPH % (test code = NE%) 92.4 % 35.0-73.0 H LYMPH % (test code = LY%) 2.8 % 20.0-55.0 L MONO % (test code = MO%) 3.6 % 2.5-10.0 EOSINOPH % (test code = EO%) 0.1 % 0.0-5.0 BASOPHIL % (test code = BA%) 0.2 % 0.0-2.0 IG % (test code = IG%) 0.9 % 0.0-0.8 H NRBC% (test code = NRBC%) 0.0 % 0.0-0.2 MANDIFF (test code = MDIFF) NO NO RBC MORPH (test code = RBCMOR) NORMAL XR CHEST 1 VIEW [id number] 16:15:17 [facility] : 1960 Sex: MPortable AP chest, 1 viewLocation Code: [id number] HISTORY: FeverCOMPARISON: NoneCOMMENT: The lungs are clear and well inflated. The costophrenic angles are sharp. The cardiomediastinal silhouette is unremarkable. The bones are intact.IMPRESSION: Mild hyperinflation without focal consolidations.Electronically signed by: Rosalba Munoz MD 10/14/2020 4:15 PM CDT [id number] WITH [id number] 15:58:00 Test Item Value Reference Range Interpretation Comments COLOR (test code = COLU) YELLOW YELLOW CLARITY (test code = CLA) HAZY CLEAR A GLUCOSE UR (test code = UA NEGATIVE NEGATIVE GLUCOSE) BILI UR (test code = BILE) NEGATIVE NEGATIVE KETONES UR (test code = NEGIN) NEGATIVE NEGATIVE SP GRAVITY (test code = SPGR) 1.016 1.005-1.030 PH UR (test code = PH) 6.5 4.5-8.0 PROTEIN UR (test code = PU) 3+ NEGATIVE A UROBIL UR (test code = UROQ) 0.2 EU/dL 0.2-1.0 NITRITE UR (test code = POSITIVE NEGATIVE A NITRITE) BLOOD UR (test code = UA BLOOD) 3+ NEGATIVE A LEUK ES UR (test code = LEUK) 3+ NEGATIVE A WBC UR (test code = UWBC) >100 /HPF 0-3 H RBC UR (test code = URBC) 30 /HPF 0-2 H EPITH UR (test code = UEPC) FEW /LPF NONE A BACTERIA UR (test code = UBACT) MODERATE /HPF NONE A CAST UR (test code = CAST) /LPF NONE CRYSTAL UR (test code = CRYU) / LPF NONE MUCUS UR (test code = MUC) FEW / HPF NONE A AMORPH UR (test code = RIGOBERTO) / HPF NONE TRICH UR (test code = UTRICH) /HPF NONE YEAST UR (test code = UY) /HPF NONE SPERM UR (test code = USPERM) /HPF NONE CT ABDOMEN PELVIS WO [id number] 20:34:42 1. ?1.1 cm mid right ureter stone adjacent to a stent or the stent is inappropriate position. Moderate hydronephrosis present. 2. Cirrhosis. 3. 3.8 cm infrarenal abdominal aortic aneurysm. RL: 1105 HISTORY: ?Flank pain, kidney stone suspected worsening right sided flankpain, s/p ureteral stent 1 month ago COMPARISON:none TECHNIQUE:CT scan of the abdomen and pelvis performed. Contiguous axial CT imageswere obtained without administration ofintravenous contrast. ?CT scan doneaccording to ALARA. Technical quality: Technical quality: adequate. FINDINGS: Lung bases are clear. A right ureter stent is present. The stent is in adequate position. A 1.1 cm stone seen in the mid ureter at L4-5. Punctate nonobstructingstone seen lower pole right kidney. There are punctate stones throughout the left kidney. There is no leftureter stone or hydronephrosis. The urinary bladder is unremarkable. Cirrhotic liver present. Gallbladder unremarkable. Thereis no biliarydilatation. There is no inflammation around the pancreas. The spleen isnormal in size. There is no intrarenal nodule. Infrarenal abdominal aortic aneurysm measures up to 3.8 cm transversediameter. No destructive bony process is demonstrated. [facility], Radiant Results Inft User - 09/07/2020 3:35 PM CDTHISTORY: Flank pain, kidney stone suspected worsening right sided flankpain, s/p ureteral stent 1 month ago COMPARISON:noneTECHNIQUE:CT scan of the abdomen and pelvis performed. Contiguous axial CT imageswere obtained without administration of intravenous contrast. CT scan doneaccording to ALARA. Technical quality: Technical quality: adequate.FINDINGS:Lung bases are clear.A right ureter stentis present. The stent is in adequate position.A 1.1 cm stone seen in the mid ureter at L4-5. Punctate nonobstructingstone seen lower pole right kidney.There are punctate stones throughout the left kidney. There is no leftureter stone or hydronephrosis.The urinary bladder is unremarkable.Cirrhotic liver present. Gallbladder unremarkable. There is no biliarydilatation. There is no inflammation around the pancreas. The spleen isnormal in size.There is no intrarenal nodule.Infrarenal abdominal aortic aneurysm measures up to 3.8 cm transversediameter.No destructive bony process is demonstrated.IMPRESSION1. 1.1 cm mid right ureter stone adjacent to a stent or the stent is inappropriate position. Moderate hydronephrosis present.2. Cirrhosis.3. 3.8 cm infrarenal abdominal aortic aneurysm.RL: 1105 [facility]ysis[facility]18 Test Item Value Reference Range Interpretation Comments APPEARANCE (test code = Clear Clear 0660273864) COLOR (test code = Red Yellow A 1409604376) PH (test code = 4.8-8.0 3702472241) SP GRAVITY (test code = 1.003-1.030 6311034387) GLU U QUAL (test code = Normal Normal 3215225333) BLOOD (test code = 3+ Negative A 9401978627) KETONES (test code = Negative Negative 5106514837) PROTEIN (test code = 100 mg/dL Negative A 2887-8) UROBILIN (test code = Normal Normal 8753903030) BILIRUBIN (test code = Negative Negative 3974116733) NITRITE (test code = Negative Negative 2464648079) LEUK MYA (test code = 75/uL Negative A 3893959095) RBC/HPF (test code = >182 See_Comment H [Autom ated message] 3746729688) The system [employer] generated this result transmit melly reference range : 0 - 3 HPF. The refe rence range was not u sed to interpret th is result as normal/abnormal . WBC/HPF (test code = See_Comment H [Autom ated message] 9121282654) The system [employer] generated this result transmit melly reference range : 0 - 5 HPF. The refe rence range was not u sed to interpret th is result as normal/abnormal . BACTERIA (test code = Few Negative A 1368440215) MUCOUS (test code = Slight Negative LPF A 3654804860) AMORPHOUS (test code = Rare Rare HPF 9322702831) SQ EPITH (test code = <1 HPF 7012478033) Lab Interpretation (test Abnormal code = 07161-4) [facility] CenterCB with [id number] 20:06:43 Test Item Value Reference Range Interpretation Comments WBC (test code = See_Comment [Automated 0690-2) message] The [employer] stem which generated this result transmitted reference range : 4.20 - 10.70 10*3/?L. The reference range was not used to interpret this result as normal/abnormal . RBC (test code = See_Comment L [Automated 789-8) message] The sy stem which generated this result transmitted reference range : 4.26 - 5.52 10*6/?L. The reference range was not used to interpret this result as normal/abnormal . HGB (test code = 13.2 g/dL 12.2-16.4 718-7) HCT (test code = 39.3 % 38.4-49.3 4544-3) MCV (test code = 98.7 fL 81.7-95.6 H 787-2) MCH (test code = 33.2 pg 26.1-32.7 H 785-6) MCHC (test code = 33.6 g/dL 31.2-35.0 786-4) RDW-SD (test code = 47.9 fL 38.5-51.6 41455-7) RDW-CV (test code = 13.3 % 12.1-15.4 788-0) PLT (test code = See_Comment L [Automated 777-3) message] The sy stem which generated this result transmitted reference range : 150 - 328 10*3/ ?L. The reference r deisy was not used to interpret this result as normal/abnormal . MPV (test code = 9.7 fL 9.8-13.0 L 53556-9) IPF % (test code = 1.6 % 1.2-10.7 Platelet count 4102665113) measured by fluorescence method. NRBC/100 WBC (test See_Comment [Automat ed code = 4915479453) message] The system which generated this result transmitted reference range : 0.0 - 10.0 /100 WBCs. The refer ence range was not u sed to interpret th is result as normal/abnormal . NRBC x10^3 (test code <0.01 See_Comment [Auto mated = 5066231618) message] The s ystem which generated this result transmitted reference range : 10*3/?L. The reference range was not used to interpret this result as normal/abnormal . GRAN MAT (NEUT) % 67.9 % (test code = 770-8) IMM GRAN % (test code 0.40 % = 7187792016) LYMPH % (test code = 18.7 % 736-9) MONO % (test code = 10.2 % 5905-5) EOS % (test code = 2.1 % 713-8) BASO % (test code = 0.7 % 706-2) GRAN MAT x10^3(ANC) 3.81 10*3/uL 1.99-6.95 (test code = 7357054714) IMM GRAN x10^3 (test <0.03 0.00-0.06 code = 2544141467) LYMPH x10^3 (test code 1.05 10*3/uL 1.09-3.23 L = 731-0) MONO x10^3 (test code 0.57 10*3/uL 0.36-1.02 = 742-7) EOS x10^3 (test code = 0.12 10*3/uL 0.06-0.53 711-2) BASO x10^3 (test code 0.04 10*3/uL 0.01-0.09 = 704-7) Lab Interpretation Abnormal (test code = 67085-2) [facility] Metabolic Panel (NA, K, CL, CO2, GLUCOSE, BUN, CREATININE, CA)2020-09-07 20:05:37 Test Item Value Reference Range Interpretation Comments NA (test code = 141 mmol/L 135-145 3396987659) K (test code = 4.2 mmol/L 3.5-5.0 3602829600) CL (test code = 111 mmol/L 98-108 H 6133094008) CO2 TOTAL (test code = 25 mmol/L 23-31 1934909590) AGAP (test code = 2-16 6291986772) BUN (test code = 22 mg/dL 7-23 3625337713) GLUCOSE (test code = 103 mg/dL 70-110 2394928447) CREATININE (test code = 1.11 mg/dL 0.60-1.25 4511744892) CALCIUM (test code = 8.8 mg/dL 8.6-10.6 8425469058) eGFR Calculation mL/min/1.73m2 (Non-) (test code = 7385723461) eGFR Calculation mL/min/1.73m2 () (test code = 9697036658) AKHIL (test code = AKHIL) Association of Glomerular Filtration Rate (GFR) and Staging of Kidney Disease* + --+ --+ ------+| GFR (mL/min/1.73 m2) ?| With Kidney Damage ?| ?Without Kidney Damage+ --------+ --------+ +| ?>90 ?| ?Stage one ?| ? Normal ?+ ---+ ---+ -------+| ?60-89 ?| ?Stage two ?| ? Decreased GFR ? + --+ --+ ------+| ?30-59 ?| ?Stage three ?| ? Stage three ? + --+ --+ ------+| ?15-29 ?| ?Stage four ? | ? Stage four ?+ ---+ ---+ -------+| ?<15 (or dialysis) ? ?| ?Stage five ? | ? Stage five ?+ ---+ ---+ -------+ *Each stage assumes the associated GFR level has been in effect for at least three months. ?Stages 1 to 5, with or without kidney disease, indicate chronic kidney disease. Notes: Determination of stages one and two (with eGFR >59mL/min/1.73 m2) requires estimation of kidney damage for at least three months as defined by structural or functional abnormalities of the kidney, manifested by either:Pathological abnormalities or Markers of kidney damage (including abnormalities in the composition of the blood or urine or abnormalities in imaging tests). Lab Interpretation Abnormal (test code = 95352-1) [facility] CenterUrinalysis2020[facility] 11:01:00 Test Item Value Reference Range Interpretation Comments APPEARANCE (test code = Hazy Clear A 7381809815) COLOR (test code = Yellow Yellow 3554611298) PH (test code = 4.8-8.0 4444301725) SP GRAVITY (test code = 1.003-1.030 2824147040) GLU U QUAL (test code = Normal Normal 9765516857) BLOOD (test code = 3+ Negative A 5650615637) KETONES (test code = Negative Negative 2410012967) PROTEIN (test code = 30 mg/dL Negative A 2887-8) UROBILIN (test code = Normal Normal 5753516491) BILIRUBIN (test code = Negative Negative 6951270715) NITRITE (test code = Negative Negative 7582994425) LEUK MYA (test code = Negative Negative 8204598358) RBC/HPF (test code = >182 See_Comment H [Autom ated message] 2044430621) The system [employer] generated this result transmitted ref erence range: 0 - 3 HP F. The reference range was not used to int erpret this result as normal/abnormal . WBC/HPF (test code = See_Comment [Autom ated message] 6121509556) The system [employer] generated this result transmitted ref erence range: 0 - 5 HP F. The reference range was not used to int erpret this result as normal/abnormal . BACTERIA (test code = Moderate Negative A 1129778910) MUCOUS (test code = Slight Negative LPF A 1741411115) SQ EPITH (test code = <1 HPF 6853979943) HYAL CAST (test code = See_Comment H [Aut omated message] 4447533892) The system [employer] generated this result transmitted ref erence range: <=2 LPF. The reference range was not used to int erpret this result as normal/abnormal . Lab Interpretation (test Abnormal code = 36848-3) [facility] CenterComplete Metabolic [id number] 10:57:00 Test Item Value Reference Range Interpretation Comments NA (test code = 137 mmol/L 135-145 4271656941) K (test code = 4.9 mmol/L 3.5-5 3275671183) CL (test code = 105 mmol/L 98-108 5419477227) CO2 TOTAL (test code = 26 mmol/L 23-31 4088501081) AGAP (test code = 2-16 3076324303) BUN (test code = 24 mg/dL 7-23 H 5905726362) GLUCOSE (test code = 131 mg/dL 70-110 H 4125727882) CREATININE (test code = 1.50 mg/dL 0.6-1.25 H 1275592277) TOTAL BILI (test code = 0.8 mg/dL 0.1-1.7 8780131018) CALCIUM (test code = 9.6 mg/dL 8.6-10.6 1941465245) T PROTEIN (test code = 7.4 g/dL 6.3-8.2 4645920444) ALBUMIN (test code = 4.1 g/dL 3.5-5 3667354179) ALK PHOS (test code = 88 U/L 34-122 3575521350) ALTv (test code = 104 U/L 5-50 H 1742-6) AST(SGOT) (test code = 89 U/L 13-40 H 0968146211) eGFR Calculation mL/min/1.73m2 (Non-) (test code = 8032808675) eGFR Calculation mL/min/1.73m2 () (test code = 6494628724) AKHIL (test code = AKHIL) Association of Glomerular Filtration Rate (GFR) and Staging of Kidney Disease* + --+ --+ ------+| GFR (mL/min/1.73 m2) ?| With Kidney Damage ?| ?Without Kidney Damage+ --------+ --------+ +| ?>90 ?| ?Stage one ?| ? Normal ?+ ---+ ---+ -------+| ?60-89 ?| ?Stage two ?| ? Decreased GFR ? + --+ --+ ------+| ?30-59 ?| ?Stage three ?| ? Stage three ? + --+ --+ ------+| ?15-29 ?| ?Stage four ? | ? Stage four ?+ ---+ ---+ -------+| ?<15 (or dialysis) ? ?| ?Stage five ? | ? Stage five ?+ ---+ ---+ -------+ *Each stage assumes the associated GFR level has been in effect for at least three months. ?Stages 1 to 5, with or without kidney disease, indicate chronic kidney disease. Notes: Determination of stages one and two (with eGFR >59mL/min/1.73 m2) requires estimation of kidney damage for at least three months as defined by structural or functional abnormalities of the kidney, manifested by either:Pathological abnormalities or Markers of kidney damage (including abnormalities in the composition of the blood or urine or abnormalities in imaging tests). Lab Interpretation Abnormal (test code = 68357-0) [facility] CenterLipase, [id number] 10:57:00 Test Item Value Reference Range Interpretation Comments LIPASE (test code = 2307289796) 274 U/L 0-220 H Lab Interpretation (test code = Abnormal 54412-2) [facility] with [id number] 10:51:00 Test Item Value Reference Range Interpretation Comments WBC (test code = See_Comment [Automated 6690-2) message] The sy stem which generated this result transmitted reference range : 4.20 - 10.70 10*3/?L. The reference range was not used to interpret this result as normal/abnormal . RBC (test code = See_Comment [Automated 789-8) message] The sy stem which generated this result transmitted reference range : 4.26 - 5.52 10*6/?L. The reference range was not used to interpret this result as normal/abnormal . HGB (test code = 15.3 g/dL 12.2-16.4 718-7) HCT (test code = 44.5 % 38.4-49.3 4544-3) MCV (test code = 95.1 fL 81.7-95.6 787-2) MCH (test code = 32.7 pg 26.1-32.7 785-6) MCHC (test code = 34.4 g/dL 31.2-35 786-4) RDW-SD (test code = 47.3 fL 38.5-51.6 79679-5) RDW-CV (test code = 13.6 % 12.1-15.4 788-0) PLT (test code = See_Comment L [Automated 777-3) message] The sy stem which generated this result transmitted reference range : 150 - 328 10*3/ ?L. The reference r deisy was not used to interpret this result as normal/abnormal . MPV (test code = 9.5 fL 9.8-13 L 00651-4) IPF % (test code = 1.5 % 1.2-10.7 Platelet count 3472755045) measured by fluorescence method. NRBC/100 WBC (test See_Comment [Automat ed code = 9526638617) message] The system which generated this result transmitted reference range : 0.0 - 10.0 /100 WBCs. The refer ence range was not u sed to interpret th is result as normal/abnormal . NRBC x10^3 (test code <0.01 See_Comment [Auto mated = 9102160626) message] The s ystem which generated this result transmitted reference range : 10*3/?L. The reference range was not used to interpret this result as normal/abnormal . GRAN MAT (NEUT) % 72.9 % (test code = 770-8) IMM GRAN % (test code 0.40 % = 3993422925) LYMPH % (test code = 14.4 % 736-9) MONO % (test code = 10.3 % 5905-5) EOS % (test code = 1.4 % 713-8) BASO % (test code = 0.6 % 706-2) GRAN MAT x10^3(ANC) 6.06 10*3/uL 1.99-6.95 (test code = 7449431250) IMM GRAN x10^3 (test 0.03 10*3/uL 0-0.06 code = 3353820579) LYMPH x10^3 (test code 1.20 10*3/uL 1.09-3.23 = 731-0) MONO x10^3 (test code 0.86 10*3/uL 0.36-1.02 = 742-7) EOS x10^3 (test code = 0.12 10*3/uL 0.06-0.53 711-2) BASO x10^3 (test code 0.05 10*3/uL 0.01-0.09 = 704-7) Lab Interpretation Abnormal (test code = 23421-8) [facility] (ALB, T.PRO, BILI T, BU/BC, ALT, AST, ALK PHOS)2019-12-29 20:47:00 Test Item Value Reference Range Interpretation Comments TOTAL BILI (test code = 8188652079) 0.5 mg/dL 0.1-1.1 BILI UNCON (test code = 3715651765) 0.5 mg/dL 0.1-1.1 BILI CONJ (test code = 8754681291) 0.0 mg/dL 0-0.3 T PROTEIN (test code = 4642339950) 7.9 g/dL 6.3-8.2 ALBUMIN (test code = 7224605930) 4.2 g/dL 3.5-5 ALK PHOS (test code = 8068281325) 93 U/L 34-122 ALTv (test code = 1742-6) 146 U/L 5-50 H AST(SGOT) (test code = 8062304264) 123 U/L 13-40 H Lab Interpretation (test code = Abnormal 51238-5) [facility] CenterLipase [id number] 20:47:00 Test Item Value Reference Range Interpretation Comments LIPASE (test code = 4534000771) 178 U/L 0-220 Lab Interpretation (test code = Normal 27546-6) [facility] CenterCT [facility] W/O [id number] 20:06:23 No obstructing renal stones or hydronephrosis identified. Nonobstructingbilateral nephrolithiasis redemonstrated. Fusiform dilatation of the suprarenal thoracoabdominal aorta which measuresup to 4.6 cm. Infrarenal abdominal aortic aneurysm measuring 3.4 cm. Thesefindings are not substantially changed10/02/2019. Cirrhotic hepatic morphology and borderline splenomegaly. Indeterminate left renal cyst measuring 1.4 cm redemonstrated. Follow-up MRor CT renal mass protocol may be obtained on a nonurgent basis. Mild dilatation of the CBD which measures 9 mm redemonstrated,indeterminate. If clinically warranted, further evaluation with MRCP androutine basis may be considered. CT ABDOMEN PELVIS WO CONTRAST HISTORY: Male 59 years Flank pain, stone disease suspected COMPARISON: Axial images of the abdomen and pelvis were obtained withoutcontrast. [Oral contrast]. Additional coronal and sagittal reformatted images are available for interpretation. TECHNIQUE: FINDINGS: The visualized lung bases are clear. There is no pleural effusion. ?Theheart is normal in size. Evaluation of the abdomen is limited without intravenous contrast. Cirrhotic liver morphology is noted. No focal hepatic lesions areidentified. The gallbladder is physiologically distended. There are noradio-opaque gallstones.Mild dilatation of the CBD at the level ofpancreatic head measuring 9 mm (2:51). Borderline splenomegaly. Thepancreas and adrenal glands are grossly unremarkable on this unenhanced CT. The kidneys are symmetric in size. There is no hydronephrosis orhydroureter. 8 mm exophytic cyst at the left lower pole (2:69) which ismoderately hyperdense (85 HU) and unchanged in size since 2017, favoringbenign etiology such as hemorrhagic cyst. 1.4 cm exophytic left renal cystwith attenuation slightly greater than simple fluid, indeterminate. Fluidattenuating, likely simple cysts noted in the right lower pole (2:61, 69).Bilateral nonobstructing nephrolithiasis most conspicuous in the rightlower pole. Evaluation of the pelvis demonstrates that the urinary bladder isunremarkable. The prostate seminal vesicles are unremarkable. Evaluation of the gastrointestinal tract demonstrates no evidence of bowelobstruction or bowel wall thickening. The appendix is normal in caliber(2:106-118). There is no free air. ?There is no significant free fluid in the abdomen orpelvis. Diffuse dilatation and mild tortuosity of the suprarenal thoracoabdominalaorta which measures up to 4.6 cm. Saccular infrarenal aneurysm is alsopresent measuring up to 3.4 cm. Scattered aortoiliac calcifications noted. There is no significant abdominal or pelvic adenopathy. Mild lumbar levocurvature. The visualized soft tissues and osseousstructures are unremarkable. [facility], Radiant Results Inft User - 12/29/2019 3:07 PM CDTCT ABDOMEN PELVIS WO CONTRASTHISTORY: Male 59years Flank pain, stone disease suspected COMPARISON: Axial images of the abdomen and pelvis were obtained withoutcontrast. [Oral contrast]. Additional coronal and sagittal reformattedimages are available for interpretation.TECHNIQUE:FINDINGS: The visualized lung bases are clear. There is no pleural effusion. Theheart is normal in size. Evaluation of the abdomen is limited without intravenous contrast. Cirrhotic liver morphology is noted. No focal hepatic lesions areidentified. The gallbladder is physiologically distended. There are noradio- opaque gallstones.Mild dilatation of the CBD at the level ofpancreatic head measuring 9 mm (2:51). Borderline splenomegaly. Thepancreas and adrenal glands are grossly unremarkable on this unenhanced CT.The kidneys are symmetric in size. There is no hydronephrosis orhydroureter. 8 mm exophytic cyst at the left lower pole (2:69) which ismoderately hyperdense (85 HU) and unchanged in size since 2017, favoringbenign etiology such as hemorrhagic cyst. 1.4 cm exophytic left renal cystwith attenuation slightly greater than simple fluid, indeterminate. Fluidattenuating, likely simple cysts noted in the right lower pole (2:61, 69).Bilateral nonobstructing nephrolithiasis most conspicuous in the rightlower pole.Evaluation of the pelvis demonstrates that the urinarybladder isunremarkable. The prostate seminal vesicles are unremarkable.Evaluation of the gastrointestinal tract demonstrates no evidence of bowelobstruction or bowel wall thickening. The appendix is normal in caliber(2:106-118). There is no free air. There is no significant free fluid in the abdomen orpelvis.Diffuse dilatation and mild tortuosity of the suprarenal thoracoabdominalaorta which measuresup to 4.6 cm. Saccular infrarenal aneurysm is alsopresent measuring up to 3.4 cm. Scattered aortoiliac calcifications noted.There is no significant abdominal or pelvic adenopathy.Mild lumbar levocurvature. The visualized soft tissues and osseousstructures are unremarkable. IMPRESSIONNo obstructing renal stones or hydronephrosis identified. Nonobstructingbilateral nephrolithiasis redemonstrated.Fusiform dilatation of the suprarenal thoracoabdominal aorta which measuresup to 4.6 cm. Infrarenal abdominal aortic aneurysm measuring 3.4 cm. Thesefindings are not substantially changed 10/02/2019. Cirrhotichepatic morphology and borderline splenomegaly.Indeterminate left renal cyst measuring 1.4 cm redemonstrated. Follow-up MRor CT renal mass protocol may be obtained on a nonurgent basis.Mild dilatation of the CBD which measures 9 mm redemonstrated,indeterminate. If clinically warranted, further evaluation with MRCP androutine basis may be considered.[facility] (NA, K, CL, CO2, GLUCOSE, BUN, CREATININE, CA)2019-12-29 19:38:00 Test Item Value Reference Range Interpretation Comments NA (test code = 138 mmol/L 135-145 5630997122) K (test code = 4.3 mmol/L 3.5-5 5723319514) CL (test code = 108 mmol/L 98-108 8302157421) CO2 TOTAL (test code = 25 mmol/L 23-31 0453393509) AGAP (test code = 2-16 9944155467) BUN (test code = 24 mg/dL 7-23 H 2043977011) GLUCOSE (test code = 122 mg/dL 70-110 H 6352837050) CREATININE (test code = 0.91 mg/dL 0.6-1.25 3464534117) CALCIUM (test code = 9.5 mg/dL 8.6-10.6 9898346758) eGFR Calculation mL/min/1.73m2 (Non-) (test code = 6087042241) eGFR Calculation mL/min/1.73m2 () (test code = 0874076744) AKHIL (test code = AKHIL) Association of Glomerular Filtration Rate (GFR) and Staging of Kidney Disease* + --+ --+ ------+| GFR (mL/min/1.73 m2) ?| With Kidney Damage ?| ?Without Kidney Damage+ --------+ --------+ +| ?>90 ?| ?Stage one ?| ? Normal ?+ ---+ ---+ -------+| ?60-89 ?| ?Stage two ?| ? Decreased GFR ? + --+ --+ ------+| ?30-59 ?| ?Stage three ?| ? Stage three ? + --+ --+ ------+| ?15-29 ?| ?Stage four ? | ? Stage four ?+ ---+ ---+ -------+| ?<15 (or dialysis) ? ?| ?Stage five ? | ? Stage five ?+ ---+ ---+ -------+ *Each stage assumes the associated GFR level has been in effect for at least three months. ?Stages 1 to 5, with or without kidney disease, indicate chronic kidney disease. Notes: Determination of stages one and two (with eGFR >59mL/min/1.73 m2) requires estimation of kidney damage for at least three months as defined by structural or functional abnormalities of the kidney, manifested by either:Pathological abnormalities or Markers of kidney damage (including abnormalities in the composition of the blood or urine or abnormalities in imaging tests). Lab Interpretation Abnormal (test code = 45055-9) [facility] WITH [id number] 19:30:00 Test Item Value Reference Range Interpretation Comments WBC (test code = See_Comment [Automated 6690-2) message] The sy stem which generated this result transmitted reference range : 4.20 - 10.70 10*3/?L. The reference range was not used to interpret this result as normal/abnormal . RBC (test code = See_Comment [Automated 789-8) message] The sy stem which generated this result transmitted reference range : 4.26 - 5.52 10*6/?L. The reference range was not used to interpret this result as normal/abnormal . HGB (test code = 14.2 g/dL 12.2-16.4 718-7) HCT (test code = 41.3 % 38.4-49.3 4544-3) MCV (test code = 92.2 fL 81.7-95.6 787-2) MCH (test code = 31.7 pg 26.1-32.7 785-6) MCHC (test code = 34.4 g/dL 31.2-35 786-4) RDW-SD (test code = 46.5 fL 38.5-51.6 42784-8) RDW-CV (test code = 13.8 % 12.1-15.4 788-0) PLT (test code = See_Comment L [Automated 777-3) message] The sy stem which generated this result transmitted reference range : 150 - 328 10*3/ ?L. The reference r deisy was not used to interpret this result as normal/abnormal . MPV (test code = 9.1 fL 9.8-13 L 20778-9) NRBC/100 WBC (test See_Comment [Automat ed code = 9343924258) message] The system which generated this result transmitted reference range : 0.0 - 10.0 /100 WBCs. The refer ence range was not u sed to interpret th is result as normal/abnormal . NRBC x10^3 (test code <0.01 See_Comment [Auto mated = 3318299499) message] The s ystem which generated this result transmitted reference range : 10*3/?L. The reference range was not used to interpret this result as normal/abnormal . GRAN MAT (NEUT) % 70.5 % (test code = 770-8) IMM GRAN % (test code 1.10 % = 6854224971) LYMPH % (test code = 14.9 % 736-9) MONO % (test code = 11.5 % 5905-5) EOS % (test code = 1.3 % 713-8) BASO % (test code = 0.7 % 706-2) GRAN MAT x10^3(ANC) 5.84 10*3/uL 1.99-6.95 (test code = 0456998823) IMM GRAN x10^3 (test 0.09 10*3/uL 0-0.06 H code = 8918701671) LYMPH x10^3 (test code 1.23 10*3/uL 1.09-3.23 = 731-0) MONO x10^3 (test code 0.95 10*3/uL 0.36-1.02 = 742-7) EOS x10^3 (test code = 0.11 10*3/uL 0.06-0.53 711-2) BASO x10^3 (test code 0.06 10*3/uL 0.01-0.09 = 704-7) Lab Interpretation Abnormal (test code = 63026-2) [facility]IS2020-[facility] 18:12:00 Test Item Value Reference Range Interpretation Comments APPEARANCE (test code = Clear Clear 4528534099) COLOR (test code = Yellow Yellow 2259157114) PH (test code = 4.8-8.0 7364455723) SP GRAVITY (test code = 1.003-1.030 5294747869) GLU U QUAL (test code = Normal Normal 1370231164) BLOOD (test code = 1+ Negative A 5156648663) KETONES (test code = Negative Negative 6501644470) PROTEIN (test code = Negative Negative 2887-8) UROBILIN (test code = Normal Normal 6056474640) BILIRUBIN (test code = Negative Negative 9869314553) NITRITE (test code = Negative Negative 7442771526) LEUK MYA (test code = Negative Negative 2954545798) RBC/HPF (test code = See_Comment H [Autom ated message] 9236523724) The system [employer] generated this result transmitted ref erence range: 0 - 3 HP F. The reference range was not used to int erpret this result as normal/abnormal . WBC/HPF (test code = See_Comment [Autom ated message] 9273512165) The system [employer] generated this result transmitted ref erence range: 0 - 5 HP F. The reference range was not used to int erpret this result as normal/abnormal . BACTERIA (test code = Negative Negative 2893802060) MUCOUS (test code = Slight Negative LPF A 7514692128) SQ EPITH (test code = <1 HPF 0652742725) Lab Interpretation (test Abnormal code = 26995-6) [facility] CenterL[facility]2020-[facility] 10:25:00 Test Item Value Reference Range Interpretation Comments LIPASE (test code = 6035568115) 494 U/L 0-220 H Lab Interpretation (test code = Abnormal 77954-7) [facility] CenterHEPATIC FUNCTION PANEL (78973) (ALB,T.PRO,BILI T,BU/BC,ALT,AST,ALK PHOS)2019-10-04 10:25:00 Test Item Value Reference Range Interpretation Comments TOTAL BILI (test code = 7810189927) 0.5 mg/dL 0.1-1.1 BILI UNCON (test code = 7463839180) 0.6 mg/dL 0.1-1.1 BILI CONJ (test code = 6783648706) 0.0 mg/dL 0-0.3 T PROTEIN (test code = 1376291843) 6.6 g/dL 6.3-8.2 ALBUMIN (test code = 6183361224) 3.3 g/dL 3.5-5 L ALK PHOS (test code = 3150945701) 71 U/L 34-122 ALTv (test code = 1742-6) 51 U/L 5-50 H AST(SGOT) (test code = 0849983120) 54 U/L 13-40 H Lab Interpretation (test code = Abnormal 20715-1) [facility]UR[facility]IS2020-[facility]-19 00:04:00 Test Item Value Reference Range Interpretation Comments APPEARANCE (test code = Clear Clear 9991287063) COLOR (test code = Yellow Yellow 9456577282) PH (test code = 4.8-8.0 8267567554) SP GRAVITY (test code = 1.003-1.030 9115706653) GLU U QUAL (test code = Normal Normal 2201097625) BLOOD (test code = Negative Negative 5339236580) KETONES (test code = Negative Negative 0229840656) PROTEIN (test code = Negative Negative 2887-8) UROBILIN (test code = Normal Normal 8316190583) BILIRUBIN (test code = Negative Negative 2202945370) NITRITE (test code = Negative Negative 7104843834) LEUK MYA (test code = Negative Negative 2036797336) RBC/HPF (test code = <1 See_Comment [Autom ated message] 0695100014) The system [employer] generated this result transmitted ref erence range: 0 - 3 HP F. The reference range was not used to int erpret this result as normal/abnormal . WBC/HPF (test code = See_Comment [Autom ated message] 2444114337) The system [employer] generated this result transmitted ref erence range: 0 - 5 HP F. The reference range was not used to int erpret this result as normal/abnormal . BACTERIA (test code = Few Negative A 6449804037) MUCOUS (test code = Slight Negative LPF A 1255864886) Lab Interpretation (test Abnormal code = 78636-2) [id number] 10:44:00 Test Item Value Reference Range Interpretation Comments TROPONIN I (test <0.012 See_Comment [Automated code = 8214719644) message] The system which generated this result transmitted reference range : <=0.034 ng/mL. The reference range was not used to interpr et this result as normal/abnormal . AKHIL (test code = Equal or Less than AKHIL) 0.034 ng/ml---Normal ?Note: Cardiac troponin begins to rise 3-4 hours after the onset of ischemia. Repeat in 4-6 hours if the sample was drawn within 3-4 hours of the onset of the symptom and found normal. Between 0.035 and 0.120 ng/mL--- Borderline. Questionable myocardial injury or necrosis ? ?Note: Serial measurement may be necessary to confirm or exclude the diagnosis of myocardial injury or necrosis; Clinical correlation (symptoms, EKGs, imaging studies, and others) required; Repeat in 4-6 hours if clinically indicated. ? Equal or Higher than 0.121 ng/mL---Abnormal. Myocardial Injury or Necrosis Likely ? Biotin has been reported to cause a negative bias, interpret results relative to patient's use of biotin. ? Lab Interpretation Normal (test code = 57351-5) [facility] Metabolic Panel (NA, K, CL, CO2, GLUCOSE, BUN, CREATININE, CA)2019-10-03 10:37:00 Test Item Value Reference Range Interpretation Comments NA (test code = 137 mmol/L 135-145 3960845532) K (test code = 4.1 mmol/L 3.5-5 0060023755) CL (test code = 101 mmol/L 98-108 6967464459) CO2 TOTAL (test code = 29 mmol/L 23-31 2330357966) AGAP (test code = 2-16 5243669668) BUN (test code = 20 mg/dL 7-23 5962885540) GLUCOSE (test code = 107 mg/dL 70-110 4502988465) CREATININE (test code 0.97 mg/dL 0.6-1.25 = 7387163009) CALCIUM (test code = 9.5 mg/dL 8.6-10.6 3901943786) eGFR Calculation mL/min/1.73m2 (Non-) (test code = 2803471347) eGFR Calculation mL/min/1.73m2 () (test code = 7935018585) AKHIL (test code = AKHIL) Association of Glomerular Filtration Rate (GFR) and Staging of Kidney Disease* + -+ + ---+| GFR (mL/min/1.73 m2) ?| With Kidney Damage ?| ?Without Kidney Damage+ -------+ ------+ ---------+| ?>90 ?| ?Stage one ?| ? Normal ?+ --+ -+ ----+| ?60-89 ?| ?Stage two ?| ? Decreased GFR ? + -+ + ---+| ?30-59 ?| ?Stage three ?| ? Stage three ? + -+ + ---+| ?15-29 ?| ?Stage four ? | ? Stage four ?+ --+ -+ ----+| ?<15 (or dialysis) ? ?| ?Stage five ? | ? Stage five ?+ --+ -+ ----+ *Each stage assumes the associated GFR level has been in effect for at least three months. ?Stages 1 to 5, with or without kidney disease, indicate chronic kidney disease. Notes: Determination of stages one and two (with eGFR >59mL/min/1.73 m2) requires estimation of kidney damage for at least three months as defined by structural or functional abnormalities of the kidney, manifested by either:Pathological abnormalities or Markers of kidney damage (including abnormalities in the composition of the blood or urine or abnormalities in imaging tests). [facility] 10:31:00 Test Item Value Reference Range Interpretation Comments LIPASE (test code = 2917520684) 643 U/L 0-220 H Lab Interpretation (test code = Abnormal 37020-5) [facility] CenterCB WITH [id number] 09:52:00 Test Item Value Reference Range Interpretation Comments WBC (test code = See_Comment [Automated 7590-2) message] The sy stem which generated this result transmitted reference range : 4.20 - 10.70 10*3/?L. The reference range was not used to interpret this result as normal/abnormal . RBC (test code = See_Comment L [Automated 729-8) message] The sy stem which generated this result transmitted reference range : 4.26 - 5.52 10*6/?L. The reference range was not used to interpret this result as normal/abnormal . HGB (test code = 12.8 g/dL 12.2-16.4 718-7) HCT (test code = 37.1 % 38.4-49.3 L 4544-3) MCV (test code = 95.6 fL 81.7-95.6 787-2) MCH (test code = 33.0 pg 26.1-32.7 H 785-6) MCHC (test code = 34.5 g/dL 31.2-35 786-4) RDW-SD (test code = 44.5 fL 38.5-51.6 55976-4) RDW-CV (test code = 12.7 % 12.1-15.4 788-0) PLT (test code = See_Comment [Automated 777-3) message] The sy stem which generated this result transmitted reference range : 150 - 328 10*3/ ?L. The reference r deisy was not used to interpret this result as normal/abnormal . MPV (test code = 9.5 fL 9.8-13 L 69496-4) NRBC/100 WBC (test See_Comment [Automat ed code = 2974872615) message] The system which generated this result transmitted reference range : 0.0 - 10.0 /100 WBCs. The refer ence range was not u sed to interpret th is result as normal/abnormal . NRBC x10^3 (test code <0.01 See_Comment [Auto mated = 5039486927) message] The s ystem which generated this result transmitted reference range : 10*3/?L. The reference range was not used to interpret this result as normal/abnormal . GRAN MAT (NEUT) % 69.9 % (test code = 770-8) IMM GRAN % (test code 0.50 % = 8505398352) LYMPH % (test code = 14.4 % 736-9) MONO % (test code = 13.3 % 5905-5) EOS % (test code = 1.3 % 713-8) BASO % (test code = 0.6 % 706-2) GRAN MAT x10^3(ANC) 5.76 10*3/uL 1.99-6.95 (test code = 5572105229) IMM GRAN x10^3 (test 0.04 10*3/uL 0-0.06 code = 3581355360) LYMPH x10^3 (test code 1.19 10*3/uL 1.09-3.23 = 731-0) MONO x10^3 (test code 1.10 10*3/uL 0.36-1.02 H = 742-7) EOS x10^3 (test code = 0.11 10*3/uL 0.06-0.53 711-2) BASO x10^3 (test code 0.05 10*3/uL 0.01-0.09 = 704-7) Lab Interpretation Abnormal (test code = 67748-7) [id number] 22:48[facility]00 Test Item Value Reference Range Interpretation Comments TROPONIN I (test <0.012 See_Comment [Automated code = 8763954986) message] The system which generated this result transmitted reference range : <=0.034 ng/mL. The reference range was not used to interpr et this result as normal/abnormal . AKHIL (test code = Equal or Less than AKHIL) 0.034 ng/ml---Normal ?Note: Cardiac troponin begins to rise 3-4 hours after the onset of ischemia. Repeat in 4-6 hours if the sample was drawn within 3-4 hours of the onset of the symptom and found normal. Between 0.035 and 0.120 ng/mL--- Borderline. Questionable myocardial injury or necrosis ? ?Note: Serial measurement may be necessary to confirm or exclude the diagnosis of myocardial injury or necrosis; Clinical correlation (symptoms, EKGs, imaging studies, and others) required; Repeat in 4-6 hours if clinically indicated. ? Equal or Higher than 0.121 ng/mL---Abnormal. Myocardial Injury or Necrosis Likely ? Biotin has been reported to cause a negative bias, interpret results relative to patient's use of biotin. ? Lab Interpretation Normal (test code = 85191-0) [facility] CenterLIP[facility] PANEL (01947)(TOTAL CHOLESTEROL, TRIGLYCERIDES, HDL)2019-10-02 18:48:00 Test Item Value Reference Range Interpretation Comments CHOL (test code = 126 mg/dL 120-200 9337150953) HDL (test code = 22 mg/dL >40 L 0859412263) HDLC RATIO (test code = See_Comment H [Au tomated message] 6036773918) The system [employer] generated this result transmit melly reference range : <=5.0. The refe rence range was not u sed to interpret th is result as normal/abnormal . TRIG (test code = 100 mg/dL 30-170 9191304336) LDL CHOL (test code = 84 mg/dL See_Comment [Auto mated message] 71260-8) The system [employer] generated this result transmit melly reference range : <=160. The refe rence range was not u sed to interpret th is result as normal/abnormal . VLDL (test code = 20 mg/dL 5-60 4701130688) Lab Interpretation (test Abnormal code = 75310-7) [facility] CenterTroponin [id number] 16:59:00 Test Item Value Reference Range Interpretation Comments TROPONIN I (test <0.012 See_Comment [Automated code = 3914403296) message] The system which generated this result transmitted reference range : <=0.034 ng/mL. The reference range was not used to interpr et this result as normal/abnormal . AKHIL (test code = Equal or Less than AKHIL) 0.034 ng/ml---Normal ?Note: Cardiac troponin begins to rise 3-4 hours after the onset of ischemia. Repeat in 4-6 hours if the sample was drawn within 3-4 hours of the onset of the symptom and found normal. Between 0.035 and 0.120 ng/mL--- Borderline. Questionable myocardial injury or necrosis ? ?Note: Serial measurement may be necessary to confirm or exclude the diagnosis of myocardial injury or necrosis; Clinical correlation (symptoms, EKGs, imaging studies, and others) required; Repeat in 4-6 hours if clinically indicated. ? Equal or Higher than 0.121 ng/mL---Abnormal. Myocardial Injury or Necrosis Likely ? Biotin has been reported to cause a negative bias, interpret results relative to patient's use of biotin. ? Lab Interpretation Normal (test code = 34251-2) [facility] CenterGlycosylated Hemoglobin (A1C)2019-10-02 16:56:00 Test Item Value Reference Interpretation Comments Range HGB A1C (test code = See_Comment [Autom ated 4548-4) message] The system which generated this result transmitted reference range : 4.0 - 6.0 % NGSP. The reference range was not used to interpret this result as normal/abnormal . AKHIL (test code = %A1C (NGSP) AKHIL) Interpretation (ADA)4.8-5.6 ? ? Normal or (Non-Diabetic Range)5.7-6.4 ? ? Increased Risk (Pre-Diabetic)>6.5 ?Diabetes Indicated Lab Interpretation Normal (test code = 63183-3) [facility] CenterThyroid Stimulating Hormone (TSH)2019-10-02 16:41:00 Test Item Value Reference Range Interpretation Comments TSH (test code = See_Comment [Automated message] 6039980511) The system [employer] generated this result transmitted ref erence range: 0.45 - 4 .70 mIU/L. The refe rence range was not u sed to interpret this result as normal/abnor mal. Lab Interpretation (test Normal code = 51248-1) [facility] CenterMagnesium [id number] 16:08:00 Test Item Value Reference Range Interpretation Comments MAGNESIUM (test code = 1.9 mg/dL 1.7-2.4 Sligh t hemolysis 1897293137) Lab Interpretation (test Normal code = 51032-7) [facility]CT [facility] [id number] 14:04:25 Type B thoracic aortic aneurysm is similar to prior. The dissecting flapextends into the abdominal aorta. There is no interval change. 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 Please refer to the concurrently obtained, separately dictated, CT abdomenreport for detailed intra- abdominal findings. Preliminary Report Dictated by Resident: Ivonne Hager- Tye Jameson MD., have reviewed this study and agree with the abovereport.EXAM: CT ANGIOGRAM CHESTPROCEDURE: CT CHEST ANGIO WITHOUT AND WITH CONTRAST - THORACIC AORTAPROTOCOL CLINICAL INDICATION: Thoracic aortic dissection, known, follow up Pt withType B dissection presenting with chest pain, suprapubic pain ? COMPARISON: Same day chest radiograph, CT chest angiogram performed08/06/2019. TECHNIQUE:CT of the thoracic aorta and great vessels was performed fromlung apices to bases prior to and during the administration of 150 mLOmnipaque intravenous contrast material, without complication. Images werereconstructed at 3 mm slice thickness. (DFOV = 41.2 cm) FINDINGS: THORACIC AORTA AND GREAT VESSELS: A type B thoracic aortic dissection isredemonstrated with extension of the dissection flap into theabdominalaorta. The well-opacified true lumen is slitlike and supplies the celiactrunk which is wellopacified. 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 The celiac branch vessels are well-opacified. There is noperiaortic fat stranding to suggest impending rupture. Diameter measurements (MAXIMUM in mm unless otherwise specified): Sinus ?39Sinotubular junction ? 31Mid ascending aorta ?35Proximal arch ? 35Mid arch ?36Mid descending aorta ?42Aorta 2 cm above celiac origin ?36Aorta at celiac origin ? 36 Maximum aortic diameter (other than sinuses): max 42 at mid descendingaorta. CHEST:Lower neck/thyroid: Unremarkable. Lungs: Mild to moderate upper lobe predominant centrilobular emphysema.Bilateral basilar subsegmental atelectasis, more prominent on theleft. Central airway: Unremarkable. Pleura: No thickening or pneumothorax. A trace left pleural effusion ispresent Pulmonary arteries: Unremarkable. Heart and pericardium: No detectable coronary arterial calcification. Mildcardiomegaly with dilatation of the right cardiac chambers. Tracepericardial effusion. Lymph nodes: No enlarged thoracic lymph nodes. Mediastinum: Unremarkable. Thoracic spine and chest wall: Unremarkable, with normal thoracic vertebralbody heights. Other Lines/Tubes/Devices/Hardware: None Visualized upper abdomen: Please refer to the concurrently obtained,separately dictated, CTabdomen report for detailed intra-abdominalfindings. [facility], Radiant Results Inft User - 10/02/2019 9:05 AM CDTEXAM: CT ANGIOGRAM CHESTPROCEDURE: CT CHEST ANGIO WITHOUT AND WITH CONTRAST - THORACIC AORTAPROTOCOLCLINICAL INDICATION: Thoracic aortic dissection, known, follow up Pt withType B dissection presenting with chest pain, suprapubic pain COMPARISON: Same day chest radiograph, CT chest angiogram performed08/06/2019.TECHNIQUE: CT of the thoracic aorta and great vessels [facility] [place] [facility] prior to and during the administration of 150 mLOmnipaque intravenous contrast material, without complication. Images werereconstructed at 3 mm slice thickness. (DFOV = 41.2 cm)FINDINGS: THORACIC AORTA AND GREAT VESSELS: A type B thoracic aortic dissection isredemonstrated with extension of the dissection flap into the abdominalaorta. The well-opacified true lumen is slitlike and supplies the celiactrunk which is well opacified. 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 The celiac branch vessels are well- opacified.There is no periaortic fat stranding to suggest impending rupture.Diameter measurements (MAXIMUM in mm unless otherwise specified):Sinus 39Sinotubular junction 31Mid ascending aorta 35Proximal arch 35Mid arch 36Mid descending aorta 42Aorta 2 cm above celiac origin 36Aorta at celiac origin 36Maximum aortic diameter (other than sinuses): max 42 at mid descendingaorta. CHEST:Lower neck/thyroid: Unremarkable.Lungs: Mild to moderate upper lobe predominant centrilobular emphysema.Bilateralbasilar subsegmental atelectasis, more prominent on the left.Central airway: Unremarkable.Pleura: Nothickening or pneumothorax. A trace left pleural effusion ispresentPulmonary arteries: Unremarkable.Heart and pericardium: No detectable coronary arterial calcification. Mildcardiomegaly with dilatation of the right cardiac chambers. Tracepericardial effusion.Lymph nodes: No enlarged thoracic lymph nod es.Mediastinum: Unremarkable.Thoracic spine and chest wall: Unremarkable, with normal thoracic vertebralbody heights.Other Lines/Tubes/Devices/Hardware: NoneVisualized upper abdomen: Please refer to the concurrently obtained,separately dictated, CT abdomen report for detailed intra- abdominalfindings. IMPRESSIONType B thoracic aortic aneurysm is similar to prior. The dissecting flapextends into the abdominal aorta. 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 Preliminary Report Dictated by Resident: Eseosa Gabby Tye Burns MD., have reviewed this study and agree with the abovereport.[facility] CenterCT [facility] A[facility]OMEN/[id number] 13:41:52 1. Extension of the descending thoracic dissection to the distal abdominalaorta. 2. 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 Nofindings to suggest impending rupture. 3. The abdominal aorta measures up to 4.5 cm.4. Cirrhosis with splenomegaly.5. Bilateral nonobstructive renal stones.6. Indeterminate 1.4 cm left renal cyst. Further evaluation with an MR/CTrenal mass protocol can be obtained on a nonemergent basis.7. CBD is dilated measuring 9 mm at the level of the pancreatic head,indeterminate. Consider further evaluation with an MRCP if clinicallyindicated. Preliminary Report Dictated by Resident: Tye Snyder MD., have reviewed this studyand agree with the abovereport.EXAM: CT ANGIOGRAM ABDOMEN/PELVIS HISTORY: Bruit, abdomen pelvis Pt with Type B thoracic Dissection,presenting with suprapubic pain radiating to flanks COMPARISON: None. DOSE: DLP-843 mGy-cm TECHNIQUE AND FINDINGS: CT angiogram of the abdomen and pelvis wasobtained. MIPSreconstructed images as well as Coronal and sagittalreconstructions were obtained. Auto mA and/or ite rative reconstruction were used to reduce radiationdose. FINDINGS: Vessels: Fusiform aneurysmal dilatation of the abdominal aorta is noted measuring upto 4.5 cm in the suprarenal aorta. A focal saccular dilatation of theinfrarenal aorta is also noted measuring up to 3.4 cm.Extension of the descending thoracic dissection is noted. The dissectingflap extends to the distal aorta. The true lumen is well opacified andsupplies the celiac trunk, SMA and bilateral renal arteries as well as theIMA. The falselumen is opacified in its proximal portions. Aneurysmal dilatation and dissection of the celiac trunk is noted. The bilateral common iliac arteries are also aneurysmal measuring 1.6 cm. Scattered aortoiliac atherosclerotic calcifications. LOWER THORAX: Please refer to the concurrently obtained, separatelydictated, CT thorax report for detailed intrathoracic findings. LIVER: Cirrhotic liver morphology. No focal hepatic lesions. Micronodularcontour. GALLBLADDER AND BILIARY TREE: CBD is dilated measuring 9 mm at the level ofthe pancreatic head. No gallbladder wall thickening. SPLEEN: The spleen measures 14.3 cm, splenomegaly. PANCREAS: No ductal dilation or masses. ADRENAL GLANDS: No adrenal nodules.KIDNEYS: Bilateral nonobstructive renal stones measure up to 12 mm on theright. There is no hydronephrosis.A 9 mm left renal hypodensities most likely represents a hemorrhagic cyst(5:70). A 1.4 cm leftrenal cyst with attenuation greater than simple fluidand is indeterminate (5:75). Other bilateral simple renal cysts areappreciated. PERITONEUM AND RETROPERITONEUM: No free air or fluid. LYMPH NODES: Upper abdominal lymph nodes measure up to 10 mm, may bereactive. GI TRACT: No dilation or wall thickening. PELVIS/BLADDER: Unremarkable. BONES AND SOFT TISSUES: No suspicious lytic or sclerotic bony lesions. [facility], Radiant Results Inft User - 10/02/2019 8:42 AM CDTEXAM: CT ANGIOGRAM ABDOMEN/PELVISHISTORY: Bruit, abdomen pelvis Pt with Type B thoracic Dissection,presenting with suprapubic pain radiating to flanks COMPARISON: None.DOSE: DLP-843 mGy-cmTECHNIQUE AND FINDINGS: CT angiogram of the abdomen and pelvis wasobtained. MIPS reconstructed images as well as Coronal and sagittalreconstructions were obtained. Auto mA and/or iterative reconstruction were used to reduce radiationdose.FINDINGS:Vessels:Fusiform aneurysmal dilatation of the abdominal aorta is noted measuring upto 4.5 cm in the suprarenalaorta. A focal saccular dilatation of theinfrarenal aorta is also noted measuring up to 3.4 cm.Extension of the descending thoracic dissection is noted. The dissectingflap extends to the distal aorta. The true lumen is well opacified andsupplies the celiac trunk, SMA and bilateral renal arteries as well as theIMA. The false lumen is opacified in its proximal portions.Aneurysmal dilatation and dissection of the celiac trunk is noted.The bilateral common iliac arteries are also aneurysmal measuring 1.6 cm.Scattered aortoiliac atherosclerotic calcifications.LOWER THORAX: Please refer to the concurrently obtained, separatelydictated, CT thorax report for detailed intrathoracic findings.LIVER: Cirrhotic liver morphology. No focal hepatic lesions. Micronodularcontour.GALLBLADDER AND BILIARY TREE: CBD is dilated measuring 9 mm at the level ofthe pancreatic head. No gallbladder wall thickening.SPLEEN: The spleen measures 14.3 cm, splenomegaly.PANCREAS: No ductal dilation or masses.ADRENAL GLANDS: No adrenal nodules.KIDNEYS: Bilateral nonobstructive renal stones measure up to 12 mm on theright. There is no hydronephrosis.A 9 mm left renal hypodensities most likely represents a hemorrhagic cyst(5:70). A 1.4 cm left renal cyst with attenuation greater than simple fluidand is indeterminate (5:75). Otherbilateral simple renal cysts areappreciated.PERITONEUM AND RETROPERITONEUM: No free air or fluid.LYMPH NODES: Upper abdominal lymph nodes measure up to 10 mm, may bereactive.GI TRACT: No dilation or wall thickening.PELVIS/BLADDER: Unremarkable.BONES AND SOFT TISSUES: No suspicious lytic or sclerotic bony lesions.IMPRESSION1. Extension of the descending thoracic dissection to the distal abdominalaorta. 2. 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 Nofindings to suggest impendingrupture. 3. The abdominal aorta measures up to 4.5 cm.4. Cirrhosis with splenomegaly.5. Bilateral nonobstructive renal stones.6. Indeterminate 1.4 cm left renal cyst. Further evaluation with an MR/CTrenal mass protocol can be obtained on a nonemergent basis.7. CBD is dilated measuring 9 mm at the level of the pancreatic head,indeterminate. Consider further evaluation with an MRCP if clinicallyindicated.Preliminary Report Dictated by Resident: Ivonne Thomas, Tye Brand MD., have reviewed this study and agree with the abovereport.[facility] CenterType and Screen - ONCE STAT 2019-10-02 13:35:53 Test Item Value Reference Range Interpretation Comments ABO & RH (test code A Positive Performe d at [facility] = 20) Laboratory Serv [facility] [address] [place], [place] [id number] Free: [phone] A No. [id number] IAT (test code = Negative Performed a t [facility] 1185) Laboratory [facility] [address] [place], [place] [id number] Free: [phone] A No. [id number] [facility] CenterXR CHEST 1 [id number] 11:53:13EXAM: XR CHEST 1 VW HISTORY: Chest Pain. Hx of Aneurysm S/P Repair COMPARISON: Chest CT for 08/06/2019. FINDINGS: The lungs are clear. No parenchymal consolidation. Blunting of the left costophrenic angle may represent a trace effusion. Nopneumothorax is seen. The heart is normal in size. The aorta is dilated and tortuous. No acute bony abnormalities identified. Preliminary Report Dictated by Resident: Rosalba Snyder MD., have reviewed this study and agree with the abovereport.[facility], Radiant Results Inft User - 10/02/2019 6:54 AM CDTEXAM: XR CHEST 1 VWHISTORY: Chest Pain. Hx of Aneurysm S/P Repair COMPARISON: Chest CT for 08/06/2019.FINDINGS:The lungs are clear. No parenchymal consolidation. Blunting of the left costophrenic angle may represent a trace effusion. Nopneumothorax is seen.The heart is normal in size. The aorta is dilated and tortuous.No acute bony abnormalities identified.Preliminary Report Dictated by Resident: Rosalba Marcial MD., have reviewed this study and agree with the abovereport.[facility] CenterTROPONIN [id number] 10:54:00 Test Item Value Reference Range Interpretation Comments TROPONIN I (test <0.012 See_Comment [Automated code = 0526569990) message] The system which generated this result transmitted reference range : <=0.034 ng/mL. The reference range was not used to interpr et this result as normal/abnormal . AKHIL (test code = Equal or Less than AKHIL) 0.034 ng/ml---Normal ?Note: Cardiac troponin begins to rise 3-4 hours after the onset of ischemia. Repeat in 4-6 hours if the sample was drawn within 3-4 hours of the onset of the symptom and found normal. Between 0.035 and 0.120 ng/mL--- Borderline. Questionable myocardial injury or necrosis ? ?Note: Serial measurement may be necessary to confirm or exclude the diagnosis of myocardial injury or necrosis; Clinical correlation (symptoms, EKGs, imaging studies, and others) required; Repeat in 4-6 hours if clinically indicated. ? Equal or Higher than 0.121 ng/mL---Abnormal. Myocardial Injury or Necrosis Likely ? Biotin has been reported to cause a negative bias, interpret results relative to patient's use of biotin. ? Lab Interpretation Normal (test code = 75029-1) [facility] CenterN-TERMINAL [id number] 10:51:00 Test Item Value Reference Range Interpretation Comments NT-proBNP (test code 367 pg/mL See_Comment H [Autom ated = 4107656359) message] The system which generated this result transmitted reference range : <=125. The reference range was not used to interpret this result as normal/abnormal . AKHIL (test code = AKHIL) Biotin has been reported to cause a negative bias, interpret results relative to patient's use of biotin. Lab Interpretation Abnormal (test code = 38520-8) [facility] CenterCOMP. METABOLIC PANEL (15684)2019-10-02 10:42:00 Test Item Value Reference Range Interpretation Comments NA (test code = 139 mmol/L 135-145 6602234187) K (test code = 4.8 mmol/L 3.5-5 0227334480) CL (test code = 102 mmol/L 98-108 0927450803) CO2 TOTAL (test code = 30 mmol/L 23-31 5776730112) AGAP (test code = 2-16 7109327810) BUN (test code = 22 mg/dL 7-23 1677866687) GLUCOSE (test code = 110 mg/dL 70-110 9012586878) CREATININE (test code = 1.01 mg/dL 0.6-1.25 9470864955) TOTAL BILI (test code = 0.8 mg/dL 0.1-1.5 1686899609) CALCIUM (test code = 9.8 mg/dL 8.6-10.6 1498018841) T PROTEIN (test code = 7.5 g/dL 6.3-8.2 0959843568) ALBUMIN (test code = 4.0 g/dL 3.5-5 1705977706) ALK PHOS (test code = 84 U/L 34-122 0812864923) ALTv (test code = 58 U/L 5-50 H 1742-6) AST(SGOT) (test code = 74 U/L 13-40 H 9692611157) eGFR Calculation mL/min/1.73m2 (Non-) (test code = 0033122851) eGFR Calculation mL/min/1.73m2 () (test code = 0020839769) AKHIL (test code = AKHIL) Association of Glomerular Filtration Rate (GFR) and Staging of Kidney Disease* + --+ --+ ------+| GFR (mL/min/1.73 m2) ?| With Kidney Damage ?| ?Without Kidney Damage+ --------+ --------+ +| ?>90 ?| ?Stage one ?| ? Normal ?+ ---+ ---+ -------+| ?60-89 ?| ?Stage two ?| ? Decreased GFR ? + --+ --+ ------+| ?30-59 ?| ?Stage three ?| ? Stage three ? + --+ --+ ------+| ?15-29 ?| ?Stage four ? | ? Stage four ?+ ---+ ---+ -------+| ?<15 (or dialysis) ? ?| ?Stage five ? | ? Stage five ?+ ---+ ---+ -------+ *Each stage assumes the associated GFR level has been in effect for at least three months. ?Stages 1 to 5, with or without kidney disease, indicate chronic kidney disease. Notes: Determination of stages one and two (with eGFR >59mL/min/1.73 m2) requires estimation of kidney damage for at least three months as defined by structural or functional abnormalities of the kidney, manifested by either:Pathological abnormalities or Markers of kidney damage (including abnormalities in the composition of the blood or urine or abnormalities in imaging tests). Lab Interpretation Abnormal (test code = 87993-3) [facility] CenterLIPASE2020-04-17 10:42:00 Test Item Value Reference Range Interpretation Comments LIPASE (test code = 0849898636) 489 U/L 0-220 H Lab Interpretation (test code = Abnormal 07451-0) [facility] CenterCORONAVIRUS COVID-19 [id number] 10:42:00 Test Item Value Reference Range Interpretation Comments SARS-CoV-2 (test code = Not Detected Not Detected 29614-4) AKHIL (test code = AKHIL) ID NOW COVID-19 Assay is an isothermal nucleic acid amplification test intended for the qualitative detection of nucleic acid from SARS-CoV-2 viral RNA in nasopharyngeal ([employer]BIEE [employer] SOLUTION ARCHITECT) specimens. It is used under Emergency Use Authorization (EUA) by FDA. The limit of detection (LOD) of the assay is 125 Genome Equivalents/mL. A positive result is indicative of the presence of SARS-CoV-2 RNA. ?Clinical correlation with patient history and other diagnostic information is necessary to determine patient infection status. A negative (Not Detected) result does not preclude SARS-CoV-2 infection. Clinical correlation with patient history and other diagnostic information should be used in patient management decisions. Invalid: Please collect a new specimen for repeat patient testing if clinically indicated. Lab Interpretation Normal (test code = 81107-9) [facility] CenterPROTHROMBIN TIME / [id number] 10:29:00 Test Item Value Reference Range Interpretation Comments PROTIME PATIENT (test See_Comment [Auto mated message] code = 5964-2) The system [employer]én[employer] ich generated this result transmitted ref erence range: 12.0 - 1 4.7 Seconds. The re ference range was not u sed to interpret this result as normal/abnor mal. INR (test code = 6301-6) Nor mal INR <1.1; Warfarin Therap eutic range 2.0 to 3. 0 or 2.5 to 3.5, dep ending upon the indica tions. Lab Interpretation (test Normal code = 37418-1) [facility] CenterCBC WITH [id number] 10:20:00 Test Item Value Reference Range Interpretation Comments WBC (test code = See_Comment [Automated 9490-2) message] The sy stem which generated this result transmitted reference range : 4.20 - 10.70 10*3/?L. The reference range was not used to interpret this result as normal/abnormal . RBC (test code = See_Comment [Automated 804-8) message] The sy stem which generated this result transmitted reference range : 4.26 - 5.52 10*6/?L. The reference range was not used to interpret this result as normal/abnormal . HGB (test code = 13.7 g/dL 12.2-16.4 718-7) HCT (test code = 41.0 % 38.4-49.3 4544-3) MCV (test code = 96.2 fL 81.7-95.6 H 787-2) MCH (test code = 32.2 pg 26.1-32.7 785-6) MCHC (test code = 33.4 g/dL 31.2-35 786-4) RDW-SD (test code = 45.0 fL 38.5-51.6 56990-5) RDW-CV (test code = 12.6 % 12.1-15.4 788-0) PLT (test code = See_Comment [Automated 777-3) message] The sy stem which generated this result transmitted reference range : 150 - 328 10*3/ ?L. The reference r deisy was not used to interpret this result as normal/abnormal . MPV (test code = 9.1 fL 9.8-13 L 68060-0) NRBC/100 WBC (test See_Comment [Automat ed code = 5018890992) message] The system which generated this result transmitted reference range : 0.0 - 10.0 /100 WBCs. The refer ence range was not u sed to interpret th is result as normal/abnormal . NRBC x10^3 (test code <0.01 See_Comment [Auto mated = 1896179333) message] The s ystem which generated this result transmitted reference range : 10*3/?L. The reference range was not used to interpret this result as normal/abnormal . GRAN MAT (NEUT) % 75.3 % (test code = 770-8) IMM GRAN % (test code 0.70 % = 6870131411) LYMPH % (test code = 10.6 % 736-9) MONO % (test code = 12.0 % 5905-5) EOS % (test code = 1.0 % 713-8) BASO % (test code = 0.4 % 706-2) GRAN MAT x10^3(ANC) 6.70 10*3/uL 1.99-6.95 (test code = 3883581822) IMM GRAN x10^3 (test 0.06 10*3/uL 0-0.06 code = 2448637799) LYMPH x10^3 (test code 0.94 10*3/uL 1.09-3.23 L = 731-0) MONO x10^3 (test code 1.07 10*3/uL 0.36-1.02 H = 742-7) EOS x10^3 (test code = 0.09 10*3/uL 0.06-0.53 711-2) BASO x10^3 (test code 0.04 10*3/uL 0.01-0.09 = 704-7) Lab Interpretation Abnormal (test code = 47190-7) [facility] WITH [id number] 14:25:00 Test Item Value Reference Range Interpretation Comments WBC (test code = See_Comment [Automated 6690-2) message] The sy stem which generated this result transmitted reference range : 4.20 - 10.70 10*3/?L. The reference range was not used to interpret this result as normal/abnormal . RBC (test code = See_Comment L [Automated 789-8) message] The sy stem which generated this result transmitted reference range : 4.26 - 5.52 10*6/?L. The reference range was not used to interpret this result as normal/abnormal . HGB (test code = 13.6 g/dL 12.2-16.4 718-7) HCT (test code = 41.2 % 38.4-49.3 4544-3) MCV (test code = 97.9 fL 81.7-95.6 H 787-2) MCH (test code = 32.3 pg 26.1-32.7 785-6) MCHC (test code = 33.0 g/dL 31.2-35 786-4) RDW-SD (test code = 47.3 fL 38.5-51.6 55995-7) RDW-CV (test code = 13.2 % 12.1-15.4 788-0) PLT (test code = See_Comment L [Automated 777-3) message] The sy stem which generated this result transmitted reference range : 150 - 328 10*3/ ?L. The reference r deisy was not used to interpret this result as normal/abnormal . MPV (test code = 10.4 fL 9.8-13 26621-8) IPF % (test code = 3.6 % 1.2-10.7 Platelet count [id number]) measured by fluorescence method. NRBC/100 WBC (test See_Comment [Automat ed code = 4085458390) message] The system which generated this result transmitted reference range : 0.0 - 10.0 /100 WBCs. The refer ence range was not u sed to interpret th is result as normal/abnormal . NRBC x10^3 (test code <0.01 See_Comment [Auto mated = 0348399123) message] The s ystem which generated this result transmitted reference range : 10*3/?L. The reference range was not used to interpret this result as normal/abnormal . GRAN MAT (NEUT) % 74.0 % (test code = 770-8) IMM GRAN % (test code 0.40 % = 9328390539) LYMPH % (test code = 11.4 % 736-9) MONO % (test code = 13.4 % 5905-5) EOS % (test code = 0.5 % 713-8) BASO % (test code = 0.3 % 706-2) GRAN MAT x10^3(ANC) 7.86 10*3/uL 1.99-6.95 H (test code = 4216422135) IMM GRAN x10^3 (test 0.04 10*3/uL 0-0.06 code = 0180733704) LYMPH x10^3 (test code 1.21 10*3/uL 1.09-3.23 = 731-0) MONO x10^3 (test code 1.42 10*3/uL 0.36-1.02 H = 742-7) EOS x10^3 (test code = 0.05 10*3/uL 0.06-0.53 L 711-2) BASO x10^3 (test code 0.03 10*3/uL 0.01-0.09 = 704-7) Lab Interpretation Abnormal (test code = 47677-1) [facility] METABOLIC PANEL (NA, K, CL, CO2, GLUCOSE, BUN, CREATININE, CA)2019-09-19 14:12:00 Test Item Value Reference Range Interpretation Comments NA (test code = 136 mmol/L 135-145 7644505939) K (test code = 4.2 mmol/L 3.5-5 4887901253) CL (test code = 104 mmol/L 98-108 0346207849) CO2 TOTAL (test code = 26 mmol/L 23-31 2234264285) AGAP (test code = 2-16 2401666546) BUN (test code = 18 mg/dL 7-23 4143980899) GLUCOSE (test code = 119 mg/dL 70-110 H 8612336040) CREATININE (test code = 0.99 mg/dL 0.6-1.25 3759201574) CALCIUM (test code = 8.8 mg/dL 8.6-10.6 5569160632) eGFR Calculation mL/min/1.73m2 (Non-) (test code = 7511635460) eGFR Calculation mL/min/1.73m2 () (test code = 3450793163) AKHIL (test code = AKHIL) Association of Glomerular Filtration Rate (GFR) and Staging of Kidney Disease* + --+ --+ ------+| GFR (mL/min/1.73 m2) ?| With Kidney Damage ?| ?Without Kidney Damage+ --------+ --------+ +| ?>90 ?| ?Stage one ?| ? Normal ?+ ---+ ---+ -------+| ?60-89 ?| ?Stage two ?| ? Decreased GFR ? + --+ --+ ------+| ?30-59 ?| ?Stage three ?| ? Stage three ? + --+ --+ ------+| ?15-29 ?| ?Stage four ? | ? Stage four ?+ ---+ ---+ -------+| ?<15 (or dialysis) ? ?| ?Stage five ? | ? Stage five ?+ ---+ ---+ -------+ *Each stage assumes the associated GFR level has been in effect for at least three months. ?Stages 1 to 5, with or without kidney disease, indicate chronic kidney disease. Notes: Determination of stages one and two (with eGFR >59mL/min/1.73 m2) requires estimation of kidney damage for at least three months as defined by structural or functional abnormalities of the kidney, manifested by either:Pathological abnormalities or Markers of kidney damage (including abnormalities in the composition of the blood or urine or abnormalities in imaging tests). Lab Interpretation Abnormal (test code = 65413-7) [facility] METABOLIC PANEL (NA, K, CL, CO2, GLUCOSE, BUN, CREATININE, CA)2019-09-18 12:58:00 Test Item Value Reference Range Interpretation Comments NA (test code = 137 mmol/L 135-145 4169986882) K (test code = 4.5 mmol/L 3.5-5 2903817890) CL (test code = 107 mmol/L 98-108 8727619921) CO2 TOTAL (test code = 26 mmol/L 23-31 0042243746) AGAP (test code = 2-16 9945520468) BUN (test code = 22 mg/dL 7-23 1094686877) GLUCOSE (test code = 136 mg/dL 70-110 H 9772671092) CREATININE (test code = 1.06 mg/dL 0.6-1.25 6792965159) CALCIUM (test code = 8.3 mg/dL 8.6-10.6 L 2839841317) eGFR Calculation mL/min/1.73m2 (Non-) (test code = 7776326626) eGFR Calculation mL/min/1.73m2 () (test code = 4078304552) AKHIL (test code = AKHIL) Association of Glomerular Filtration Rate (GFR) and Staging of Kidney Disease* + --+ --+ ------+| GFR (mL/min/1.73 m2) ?| With Kidney Damage ?| ?Without Kidney Damage+ --------+ --------+ +| ?>90 ?| ?Stage one ?| ? Normal ?+ ---+ ---+ -------+| ?60-89 ?| ?Stage two ?| ? Decreased GFR ? + --+ --+ ------+| ?30-59 ?| ?Stage three ?| ? Stage three ? + --+ --+ ------+| ?15-29 ?| ?Stage four ? | ? Stage four ?+ ---+ ---+ -------+| ?<15 (or dialysis) ? ?| ?Stage five ? | ? Stage five ?+ ---+ ---+ -------+ *Each stage assumes the associated GFR level has been in effect for at least three months. ?Stages 1 to 5, with or without kidney disease, indicate chronic kidney disease. Notes: Determination of stages one and two (with eGFR >59mL/min/1.73 m2) requires estimation of kidney damage for at least three months as defined by structural or functional abnormalities of the kidney, manifested by either:Pathological abnormalities or Markers of kidney damage (including abnormalities in the composition of the blood or urine or abnormalities in imaging tests). Lab Interpretation Abnormal (test code = 72539-7) [facility] WITH [id number] 10:41:00 Test Item Value Reference Range Interpretation Comments WBC (test code = See_Comment H [Automated 6690-2) message] The sy stem which generated this result transmitted reference range : 4.20 - 10.70 10*3/?L. The reference range was not used to interpret this result as normal/abnormal . RBC (test code = See_Comment L [Automated 789-8) message] The sy stem which generated this result transmitted reference range : 4.26 - 5.52 10*6/?L. The reference range was not used to interpret this result as normal/abnormal . HGB (test code = 13.5 g/dL 12.2-16.4 718-7) HCT (test code = 39.8 % 38.4-49.3 4544-3) MCV (test code = 96.6 fL 81.7-95.6 H 787-2) MCH (test code = 32.8 pg 26.1-32.7 H 785-6) MCHC (test code = 33.9 g/dL 31.2-35 786-4) RDW-SD (test code = 48.0 fL 38.5-51.6 55724-0) RDW-CV (test code = 13.3 % 12.1-15.4 788-0) PLT (test code = See_Comment L [Automated 777-3) message] The sy stem which generated this result transmitted reference range : 150 - 328 10*3/ ?L. The reference r deisy was not used to interpret this result as normal/abnormal . MPV (test code = 10.6 fL 9.8-13 20962-2) IPF % (test code = 4.4 % 1.2-10.7 Platelet count 5385214849) measured by fluorescence method. NRBC/100 WBC (test See_Comment [Automat ed code = 0661304025) message] The system which generated this result transmitted reference range : 0.0 - 10.0 /100 WBCs. The refer ence range was not u sed to interpret th is result as normal/abnormal . NRBC x10^3 (test code <0.01 See_Comment [Auto mated = 1714181013) message] The s ystem which generated this result transmitted reference range : 10*3/?L. The reference range was not used to interpret this result as normal/abnormal . GRAN MAT (NEUT) % 78.7 % (test code = 770-8) IMM GRAN % (test code 0.50 % = 5242636342) LYMPH % (test code = 10.3 % 736-9) MONO % (test code = 10.0 % 5905-5) EOS % (test code = 0.2 % 713-8) BASO % (test code = 0.3 % 706-2) GRAN MAT x10^3(ANC) 10.46 10*3/uL 1.99-6.95 H (test code = 2243610638) IMM GRAN x10^3 (test 0.07 10*3/uL 0-0.06 H code = 7743594147) LYMPH x10^3 (test 1.37 10*3/uL 1.09-3.23 code = 731-0) MONO x10^3 (test code 1.33 10*3/uL 0.36-1.02 H = 742-7) EOS x10^3 (test code 0.03 10*3/uL 0.06-0.53 L = 711-2) BASO x10^3 (test code 0.04 10*3/uL 0.01-0.09 = 704-7) Lab Interpretation Abnormal (test code = 10674-0) [facility] [id number] 23:10:34 1. ?Extensive type B dissection with intramural hematoma, complex flap, andperiaortic fat strandingconcerning for leak/extravasation. The dissectionspans from the level of the left subclavian artery throughout its entiredescending thoracic aorta to the visualized portion of the upper abdominalaorta.Aneurysmally dilated and dissecting proximal celiac trunk withpreservation of patency of the branches. Thick intramuralhematoma/partially thrombosed false lumen throughout the distal descendingand upper abdominal aorta. Findings communicated to referring physician, Dr. Santana at the time ofdictation, confirmed that the presence of dissection and extent is known bythe clinical service. 2. Possible ischemia/hypoperfusion of the upper pole of the right kidney,partially visualized.3. Cirrhotic liver morpho logy. PROCEDURE: CT CHEST ANGIO WITHOUT AND WITH CONTRAST - THORACIC AORTAPROTOCOL CLINICAL INDICATION: Ascending aortic dissection On arrival COMPARISON: ?None. TECHNIQUE: CT of the thoracic aorta and great vessels was performed fromlung apices to bases prior to and during the administration of 100 mLOmnipaque 350 intravenous contrast material, without complication. Imageswere reconstructed at 1.25 mm slice thickness, and ECG- gating was used. ?3Dimages were created anton independent workstation under radiologistsupervision and interpreted.3D vessel analysis was used to obtain standard aorta and artery diametermeasurements perpendicular to the long axis of the measured artery. (DFOV =44 cm) FINDINGS: THORACIC AORTA AND GREAT VESSELS: Extensive type B aortic dissection ispresent, starting immediately at the level of the left subclavian arteryand extending to the visualized abdominal portion of the aorta. The flap iscomplex and there is associated hematoma within the wall of the aorta andin the periaortic fat in the mediastinum with outpouching of the contrastmaterial in the inferior wall of the arch/proximal descending thoracicaorta, suggestive of contained leak/rupture. The false lumen in the distaldescending thoracic aorta appears to be partially occluded or represent anintramural hematoma with a small size of the true lumen, and complex flap(3:400 through 468). True lumen is opacified, slitlike in the upperabdominal aorta, false lumen lack of opacification and there is significantintramural hematoma, on both sides of the true lumen. The celiac trunksupplying from the true lumen and appears opacified including branches,however there are smaller areas of outpouching and small lineardensities/dissection flaps in the aneurysmally dilated celiac trunk. Thevisualized portion of the SMA is patent.Incidental note is made of separate origin of the left vertebral arterydirectly from the aortic arch. Diameter measurements (MAXIMUM in mm unless otherwise specified): Sinus of Valsalva diameter, R coronary cusp to commissure: 36Sinus of Valsalva diameter, L coronary cusp to commissure: 36Sinus of Valsalva diameter, noncoronary cusp to commissure:39 Sinus ?39Sinotubular junction ? 34Mid ascendi ng aorta ?41Proximal arch ?38Mid arch ? 36Aorta 2 cm distal to left common carotid artery ? ?35Aorta 2 cm distal to left subclavian artery ?36Mid descending aorta ? 36Aorta 2 cm above celiac origin ? 36Aorta at celiac origin ? 36 Maximum aortic diameter (other than sinuses): max 41 at mid ascendingaorta. CHEST: Lower neck/thyroid: Unremarkable. Lungs: Centrilobular emphysematous changes are present. Bilateral lowerlobe dependent groundglass opacities may represent dependent atelectasis. Central airway: The central air ways are patent Pleura: No pleural effusion, thickening or pneumothorax. Pulmonary arteries: Centralpulmonary arteries are normal. Suboptimalopacification of segmental and subsegmental branches. Heartand pericardium: No detectable coronary arterial calcification. Mildcardiomegaly is present. Bulgingof the interatrial septum toward the rightatrium and mixing artifact suggestive of aneurysmal interatrial septum orpresence of atrial septal defect. Right cardiac chambers are dilated. Smallpericardialeffusion is present measuring fluid attenuation, no evidence ofhemopericardium. Lymph nodes: No enlarged thoracic lymph nodes. Mediastinum: Fat stranding and fullness in the mediastinum/AP windowadjacent to dissecting aorta consistent with mild periaortic hematoma Thoracic spine and chest wall: Unremarkable, with normal thoracic vertebralbody heights. Other Lines/Tubes/Devices/Hardware: None Visualized upper abdomen: Heterogeneous opacification of the visualizedupper pole of the right kidney with areas of lower attenuation suggestiveof hypoperfusion/ischemia. Streak artifact is present along the posterioraspect of the abdomen and lower chest, limiting evaluation of theparenchymal organs. Nodular surface of the liver suggestive of cirrhoticmorphology. Distended gallbladder. [facility], Radiant Results Inft User - 09/17/2019 6:11 PM CDTPROCEDURE: CT CHEST ANGIO WITHOUT ANDWITH CONTRAST - THORACIC AORTAPROTOCOLCLINICAL INDICATION: Ascending aortic dissection On arrival COMPARISON: None.TECHNIQUE: [facility] and during the administration of 100 mLOmnipaque 350 intravenous contrast material, without complication. Imageswere reconstructed at 1.25 mm slice thickness, and ECG-gating was used. 3Dimages were created on an independent workstation under radiologistsupervision and interpreted.3D vessel analysis was used to obtain standard aorta and artery diametermeasurements perpendicular to the long axis of the measured artery. (DFOV =44 cm)FINDINGS: THORACIC AORTA AND GREAT VESSELS: Extensive type B aortic dissection ispresent, starting immediately at the level of the left subclavian arteryandextending to the visualized abdominal portion of the aorta. The flap iscomplex and there is associated hematoma within the wall of the aorta andin the periaortic fat in the mediastinum with outpouchingof the contrastmaterial in the inferior wall of the arch/proximal descending thoracicaorta, suggestive of contained leak/rupture. The false lumen in the distaldescending thoracic aorta appears to be partially occluded or represent anintramural hematoma with a small size of the true lumen, and complex flap(3:400 through 468). True lumen is opacified, slitlike in the upperabdominal aorta, false lumen lack of opacification and there is significantintramural hematoma, on both sides of the true lumen. The celiac trunksupplying from the true lumen and appears opacified including branches,however there are smaller areas of outpouching and small lineardensities/dissection flaps in the aneurysmally dilatedceliac trunk. Thevisualized portion of the SMA is patent.Incidental note is made of separate origin of the left vertebral arterydirectly from the aortic arch.Diameter measurements (MAXIMUM in mm unlessotherwise specified):Sinus of Valsalva diameter, R coronary cusp to commissure: 36Sinus of Valsalva diameter, L coronary cusp to commissure: 36Sinus of Valsalva diameter, noncoronary cusp to commissure:39Sinus 39Sinotubular junction 34Mid ascending aorta 41Proximal arch 38Mid arch 36Aorta 2 cm distal to left common carotid artery 35Aorta 2 cm distal to left subclavian artery 36Mid descending gfpqh20Fbcox 2 cm above celiac origin 36Aorta at celiac origin 36Maximum aortic diameter (other than sinuses): max 41 at mid ascendingaorta. CHEST:Lower neck/thyroid: Unremarkable.Lungs: Centrilobular emphysematous changes are present. Bilateral lowerlobe dependent groundglass opacities may represent dependent atelectasis.Central airway: The central airways are patentPleura: No pleural effusion, thickening or pneumothorax.Pulmonary arteries: Central pulmonary arteries are normal. Suboptimalopacification of segmental and subsegmental branches.Heart and pericardium: No detectable coronary arterial calcification. Mildcardiomegaly is present. Bulging of the interatrial septum toward the rightatrium and mixing artifact suggestive of aneurysmal interatrial septum orpresence of atrial septal defect. Right cardiac chambers are dilated. Smallpericardial effusion is present measuring fluid attenuation, no evidence ofhemopericardium.Lymph nodes: No enlarged thoracic lymph nodes.Mediastinum: Fat stranding and fullness in the mediastinum/AP windowadjacent to dissecting aorta consistent with mild periaortic hematomaThoracic spine and chest wall: Unremarkable, with normal thoracic vertebralbody heights.Other Lines/Tubes/Devices/Hardware: NoneVisualized upper abdomen: Heterogeneous opacification of the visualizedupper pole of the right kidney with areas of lower attenuation suggestiveof hypoperfusion/ischemia. Streak artifact is present along the posterioraspect of the abdomen and lower chest, limiting evaluation of theparenchymal organs. Nodular surface of the liver suggestive of cirrhoticmorphology. Distended gallbladder. IMPRESSION1. Extensive type B dissection with intramural hematoma, complex flap, andperiaortic fat stranding concerning for leak/extravasation. The dissectionspans from the level of the left subclavian artery throughout its entiredescending thoracic aorta to the visualized portion of the upper abdominalaorta. 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 Thick intramuralhematoma/partially thrombosedfalse lumen throughout the distal descendingand upper abdominal aorta.Findings communicated to referring physician, Dr. Santana at the time ofdictation, confirmed that the presence of dissection and extent is known bythe clinical service.2. Possible ischemia/hypoperfusion of the upper pole of the right kidney,partially visualized.3. Cirrhotic liver morphology. [facility] CenterABORH [id number] 22:23:53 Test Item Value Reference Range Interpretation Comments ABO & RH (test code A Positive Performe d at [facility] = 20) Laboratory [facility] [address] [place] [id number] Free: [phone] A No. [id number] [facility] CenterType and Screen - ONCE [id number] 22:06:06 Test Item Value Reference Range Interpretation Comments ABO & RH (test code A POSITIVE Performe d at [facility] = 20) Laboratory [facility] [address] [place] [address] s 134[address]Ghpu Free: [phone] A No. [id number] IAT (test code = Negative Performed a t [place] 1185) Laboratory [facility] [address] [place] [id number] Free: [phone] A No. [id number] [facility] WITH [id number] 22:00:00 Test Item Value Reference Range Interpretation Comments WBC (test code = See_Comment [Automated 6690-2) message] The sy stem which generated this result transmitted reference range : 4.20 - 10.70 10*3/?L. The reference range was not used to interpret this result as normal/abnormal . RBC (test code = See_Comment [Automated 789-8) message] The sy stem which generated this result transmitted reference range : 4.26 - 5.52 10*6/?L. The reference range was not used to interpret this result as normal/abnormal . HGB (test code = 14.2 g/dL 12.2-16.4 718-7) HCT (test code = 41.2 % 38.4-49.3 4544-3) MCV (test code = 95.2 fL 81.7-95.6 787-2) MCH (test code = 32.8 pg 26.1-32.7 H 785-6) MCHC (test code = 34.5 g/dL 31.2-35 786-4) RDW-SD (test code = 46.0 fL 38.5-51.6 01626-6) RDW-CV (test code = 13.1 % 12.1-15.4 788-0) PLT (test code = See_Comment L [Automated 777-3) message] The sy stem which generated this result transmitted reference range : 150 - 328 10*3/ ?L. The reference r deisy was not used to interpret this result as normal/abnormal . MPV (test code = 10.5 fL 9.8-13 25982-0) IPF % (test code = 3.9 % 1.2-10.7 Platelet count 7694193896) measured by fluorescence method. NRBC/100 WBC (test See_Comment [Automat ed code = 9406868755) message] The system which generated this result transmitted reference range : 0.0 - 10.0 /100 WBCs. The refer ence range was not u sed to interpret th is result as normal/abnormal . NRBC x10^3 (test code <0.01 See_Comment [Auto mated = 7826107510) message] The s ystem which generated this result transmitted reference range : 10*3/?L. The reference range was not used to interpret this result as normal/abnormal . GRAN MAT (NEUT) % 85.6 % (test code = 770-8) IMM GRAN % (test code 0.40 % = 0237966843) LYMPH % (test code = 6.4 % 736-9) MONO % (test code = 7.3 % 5905-5) EOS % (test code = 0.0 % 713-8) BASO % (test code = 0.3 % 706-2) GRAN MAT x10^3(ANC) 8.50 10*3/uL 1.99-6.95 H (test code = 1427722233) IMM GRAN x10^3 (test 0.04 10*3/uL 0-0.06 code = 8331265428) LYMPH x10^3 (test code 0.63 10*3/uL 1.09-3.23 L = 731-0) MONO x10^3 (test code 0.72 10*3/uL 0.36-1.02 = 742-7) EOS x10^3 (test code = <0.03 0.06-0.53 L 711-2) BASO x10^3 (test code 0.03 10*3/uL 0.01-0.09 = 704-7) Lab Interpretation Abnormal (test code = 02023-6) [facility] METABOLIC PANEL (NA, K, CL, CO2, GLUCOSE, BUN, CREATININE, CA)2019-09-17 21:45:00 Test Item Value Reference Range Interpretation Comments NA (test code = 137 mmol/L 135-145 1210096905) K (test code = 4.2 mmol/L 3.5-5 2049145295) CL (test code = 104 mmol/L 98-108 1460525515) CO2 TOTAL (test code = 24 mmol/L 23-31 3615547392) AGAP (test code = 2-16 9109302180) BUN (test code = 22 mg/dL 7-23 0957136442) GLUCOSE (test code = 156 mg/dL 70-110 H 7868864907) CREATININE (test code = 1.03 mg/dL 0.6-1.25 3084101526) CALCIUM (test code = 8.3 mg/dL 8.6-10.6 L 9370324402) eGFR Calculation mL/min/1.73m2 (Non-) (test code = 5724457759) eGFR Calculation mL/min/1.73m2 () (test code = 5696983446) AKHIL (test code = AKHIL) Association of Glomerular Filtration Rate (GFR) and Staging of Kidney Disease* + --+ --+ ------+| GFR (mL/min/1.73 m2) ?| With Kidney Damage ?| ?Without Kidney Damage+ --------+ --------+ +| ?>90 ?| ?Stage one ?| ? Normal ?+ ---+ ---+ -------+| ?60-89 ?| ?Stage two ?| ? Decreased GFR ? + --+ --+ ------+| ?30-59 ?| ?Stage three ?| ? Stage three ? + --+ --+ ------+| ?15-29 ?| ?Stage four ? | ? Stage four ?+ ---+ ---+ -------+| ?<15 (or dialysis) ? ?| ?Stage five ? | ? Stage five ?+ ---+ ---+ -------+ *Each stage assumes the associated GFR level has been in effect for at least three months. ?Stages 1 to 5, with or without kidney disease, indicate chronic kidney disease. Notes: Determination of stages one and two (with eGFR >59mL/min/1.73 m2) requires estimation of kidney damage for at least three months as defined by structural or functional abnormalities of the kidney, manifested by either:Pathological abnormalities or Markers of kidney damage (including abnormalities in the composition of the blood or urine or abnormalities in imaging tests). Lab Interpretation Abnormal (test code = 64143-2) [facility] Center[facility]2020-[facility]-02 21:45:00 Test Item Value Reference Range Interpretation Comments MAGNESIUM (test code = 7865538932) 2.2 mg/dL 1.7-2.4 Lab Interpretation (test code = Normal 70657-2) [facility] CenterPHOSPHORUS2020-04-02 21:45:00 Test Item Value Reference Range Interpretation Comments PHOSPHORUS (test code = 9491160647) 3.1 mg/dL 2.5-5 Lab Interpretation (test code = Normal 40394-4) [facility] CenterPROTHROMBIN TIME / [id number] 21:39:00 Test Item Value Reference Range Interpretation Comments PROTIME PATIENT (test See_Comment H [Auto mated message] code = 5964-2) The system [employer] generated this result transmitted ref erence range: 10.1 - 1 2.6 Seconds. The reference range was not used to int erpret this result as normal/abnormal . INR (test code = 6301-6) Nor mal INR <1.1; Warfarin Therap eutic range 2.0 to 3. 0 or 2.5 to 3.5, dep ending upon the indica tions. Lab Interpretation (test Abnormal code = 10064-4) [facility] CenteraPTT2020-04-02 21:39:00 Test Item Value Reference Range Interpretation Comments APTT Patient (test code = See_Comment [ Automated message] 3173-2) The system [employer] h generated this result transmitted ref erence range: 26 - 36 Seconds. The re ference range was not u sed to interpret this result as normal/abnor mal. Lab Interpretation (test Normal code = 98306-3) [facility] CenterFIBRINOGEN2020-04-02 21:39:00 Test Item Value Reference Range Interpretation Comments Fibrinogen (test code = 3876502404) 156 mg/dL 167-453 L Lab Interpretation (test code = Abnormal 99458-1) [facility] CenterAMYLASE AND [id number] 13:02:00 Test Item Value Reference Range Interpretation Comments AMYLASE (test code = 10A) 65 U/L 28-100 LIPASE (test code = 60A) 285 IU/L 73-393 COMPREHENSIVE METABOLIC [id number] 13:02:00 Test Item Value Reference Range Interpretation Comments GLUCOSE (test code = 06D) 120 mg/dL 75-100 H SODIUM (test code = 01A) 143 mmol/L 136-145 POTASSIUM (test code = 01B) 4.0 mmol/L 3.6-5.1 CHLORIDE (test code = 04A) 108 mmol/L 98-107 H CO2 (test code = 02A) 28 mmol/L 22-32 ANION GAP (test code = ANG) 11.0 mmol/L BUN (test code = 05D) 28 mg/dL 7-18 H CREATININE (test code = 03E) 2.1 mg/dL 0.7-1.3 H BUN/CREA R (test code = BCR) 13 12-20 CALCIUM (test code = 09D) 9.4 mg/dL 8.3-9.5 BILI TOTAL (test code = 11A) 0.6 mg/dL 0.2-1.0 PROTEIN (test code = 07D) 7.5 g/dL 6.4-8.2 ALBUMIN (test code = 08D) 3.7 g/dL 3.5-4.8 GLOBULIN (test code = GLB) 3.8 g/dL 1.5-3.8 ALB/GLOB (test code = AGRR) 1.0 1.0-2.6 ALK PHOS (test code = 35A) 96 IU/L 42-121 AST (test code = 30A) 57 IU/L <=42 H ALT (test code = 31A) 93 IU/L <=[address] STONE PROTOCOL [id number] 12:58:21CT ABDOMEN AND PELVIS WITHOUT CONTRAST, RENAL STONE PROTOCOL:Location code: [id number] HISTORY: Right flank painCOMPARISON: NoneTECHNIQUE: Helical CT of the abdomen and pelvis was performed withoutcontrast. Thin section axial, sagittal and coronal images were obtained.Automatic exposure control was utilized. Total DLP: 664 mGycm.FINDINGS: 8 mm calculus is present within the right mid ureter at the pelvic brim. Thereis moderate proximal hydronephrosis. Additional 3 to 4 mm calculi are presentwithin the kidneys bilaterally. There is no left-sided ureteral calculus orhydronephrosis.The visualized lungbases are clear. The unenhanced liver, gallbladder,adrenals, pancreas, and spleen are unremarkable.The unopacified loops of bowel demonstrate no focal thickening or dilatation.The appendix is visualized and is normal. Diverticuli are seen scatteredthroughout the sigmoid colon with no wall thickening or adjacent inflammation.There is no free intraperitoneal air or fluid. Calcified atherosclerotic plaque is present throughout the abdominal aorta.There is mild ectasia of the infrarenal segment measuring upwards of 2.7 cm indiameter. There is no retroperitoneal adenopathy or mass. The urinary bladder is unremarkable. There is no pelvic mass or fluidcollection. Mild degenerative changes are present throughout the spine. The skin andsurrounding soft tissues are unremarkable. IMPRESSION:1. 8 mm right mid ureteral calculus causing moderate proximal hydronephrosis.2. Multiple additional small, 3 and 4 mmnonobstructing renal calculibilaterally.3. Diverticulosis with no evidence of diverticulitis.4. Aortic atherosclerosis with ectasia of the infrarenal segment 2.7 cm.PRO TIME AND [id number] 12:57:00 Test Item Value Reference Range Interpretation Comments PT (test code = 11.6 s 9.8-13.6 TT) INR (test code = 1.0 INR) INRH (test code = SUGGESTED THERAPEUTIC INRH) RANGE FOR INR: 2.5 - 3.5 For Patients with Prosthetic Valves or Patients with recurrent Thromboembolic Events 2.0 - 3.0 For Most Other Applications PTT (test code = 28.1 s 20.2-38.0 PTT) PTTH (test code = To monitor the PTTH) effectiveness of heparin, we offer the Anti-Xa (Heparin Assay). It can be used for either unfractinated or LMW Heparin. Order Code is ANTI-XA [id number] 12:47:00 Test Item Value Reference Range Interpretation Comments COLOR (test code = COLU) YELLOW YELLOW CLARITY (test code = CLA) CLEAR CLEAR GLUCOSE UR (test code = UA GLUCOSE) NEGATIVE NEGATIVE BILI UR (test code = BILE) NEGATIVE NEGATIVE KETONES UR (test code = NEGIN) NEGATIVE NEGATIVE SP GRAVITY (test code = SPGR) 1.017 1.005-1.030 PH UR (test code = PH) 6.0 4.5-8.0 PROTEIN UR (test code = PU) NEGATIVE NEGATIVE UROBIL UR (test code = UROQ) 0.2 EU/dL 0.2-1.0 NITRITE UR (test code = NITRITE) NEGATIVE NEGATIVE BLOOD UR (test code = UA BLOOD) NEGATIVE NEGATIVE LEUK ES UR (test code = LEUK) NEGATIVE NEGATIVE CBC (INCLUDES AUTOMATED DIFFERENTIAL)[id number] 12:42:00 Test Item Value Reference Range Interpretation Comments WBC (test code = WBC) 9.6 10\\S\\3/uL 4.5-11.0 RBC (test code = RBC) 4.91 10\\S\\6/uL 4.20-5.60 HGB (test code = HBG) 15.8 g/dL 14.0-18.0 HCT (test code = HCT) 45.9 % 35.0-46.0 MCV (test code = MCV) 93.5 fL 80.0-94.0 MCH (test code = MCH) 32.2 pg 27.0-31.0 H MCHC (test code = MCHC) 34.4 g/dL 32.0-36.0 RDW (test code = RDW) 12.8 % 11.5-14.5 PLT (test code = PLT) 160 10\\S\\3/uL 130-400 MPV (test code = MPV) 10.3 fL 9.4-12.4 NEUTROP # (test code = NE#) 6.8 10\\S\\3/uL 2.0-8.0 LYMPH # (test code = LY#) 1.8 10\\S\\3/uL 1.2-4.0 MONOCYTE # (test code = MO#) 0.8 10\\S\\3/uL 0.0-1.1 EOSINOPH # (test code = EO#) 0.2 10\\S\\3/uL 0.0-0.7 BASOPHIL # (test code = BA#) 0.1 10\\S\\3/uL 0.0-0.3 IG # (test code = IG#) 0.02 10\\S\\3/uL 0.00-0.06 NRBC # (test code = NRBC#) 0.00 10\\S\\3/uL 0.00-0.01 NEUTROPH % (test code = NE%) 70.6 % 35.0-73.0 LYMPH % (test code = LY%) 18.5 % 20.0-55.0 L MONO % (test code = MO%) 8.5 % 2.5-10.0 EOSINOPH % (test code = EO%) 1.6 % 0.0-5.0 BASOPHIL % (test code = BA%) 0.6 % 0.0-2.0 IG % (test code = IG%) 0.2 % 0.0-0.8 NRBC% (test code = NRBC%) 0.0 % 0.0-0.2 MANDIFF (test code = MDIFF) NO NO RBC MORPH (test code = RBCMOR) NORMAL"
[2022-04-10 11:03] LABS: Absolute Lymphocytes (CBC) 0.5 K/uL (0.7-4.9); Hematocrit 39.1 % (39.6-49.0); Lymphocytes % 5.4 % (15.3-44.8); MCV 96.7 fL (80-100); MPV 7.9 fL (7.6-11.3); RBC Red Blood Cell Count 4.05 M/uL (4.33-5.43)
[2022-04-10 11:20] LABS: Albumin 2.4 g/dL (3.4-5.0); Bilirubin Total 0.9 mg/dL (0.2-1.0); Potassium 3.7 mmol/L (3.5-5.1)
[2022-04-10] MEDS ORDERED: FENTANYL CITR 100 MCG/2 ML ONE ×2 (11:53→14:21)
--- NOTE | 2022-04-10 12:07 | RAD REPORT ---
EXAM DESCRIPTION: CT - Abdomen Pelvis W Contrast - 04/10/2022 11:35 am CLINICAL HISTORY: abd pain, history of aortic dissection repair COMPARISON: No comparisons TECHNIQUE: Biphasic, helical CT imaging of the abdomen and pelvis was performed following 100 ml non -ionic IV contrast. No oral contrast administered. All CT scans are performed using dose optimization technique as appropriate and may include automated exposure control or mA/KV adjustment according to patient size. FINDINGS: No suspicious findings in the lung bases. The liver has a pronounced nodular liver capsule contour but no focal liver lesions of concern. A 6 m illimeter low-density area is present in the anterior lateral segment left lobe. No portal vein throm bosis. Splenomegaly is present with a 17 centimeter craniocaudal dimension. No focal splenic lesion. No acute pancreatic process. Extrahepatic biliary tree is prominent. Duodenal diverticulum is seen in the pancreatic head. Gallbla dder wall is thickened and edematous. No gross evidence for a stone but stones can be occult on CT im aging. Pericholecystic fluid is present. Symmetric renal function is seen with no hydronephrosis or suspicious renal mass. A few small nonobst ructing calyx calculi seen in each kidney. Bilateral renal cysts are present more numerous on the rig ht. No pyelonephritis or acute parenchymal process. No bladder abnormalities. No adrenal abnormalitie s. No gastric dilatation or gastric wall thickening. Small bowel loops are not dilated but several are p rominent. There is a minimal congestion or edema in the mesenteric fat. Findings are nonspecific but could indicate a mild enteritis. Diverticulosis is minimal. No acute diverticulitis. There is no appe ndicitis present. No free air or pneumatosis. No mass or bulky lymphadenopathy. Fat extends into the origin of the r ight inguinal canal. The patient is status post aortic dissection repair. In the distal thoracic aorta there is a partiall y visualized endovascular stent. The tortuous aorta is 5.3 cm in diameter. A contrast opacified false channel is present in the distal aorta with a dissection continuing inferiorly to below the renal va scular level. Mesenteric and renal vasculature exit from the true lumen of the abdominal aortic disse ction. No periaortic acute abnormality. The patient has an infrarenal abdominal aortic aneurysm measuring 4.9 cm AP x 4.8 cm TR. Large amount of mural thrombus fills the majority of the aortic aneurysm. Contrast opacified true lumen is seen i n the posterior aspect of this aneurysm continuing into the iliac arteries. The right common iliac ar jessica is dilated to 2.7 cm. Left common iliac artery is 1.8 cm in diameter. Disc and bone degenerative changes are present. Prominent disc bulge is seen at L4-5. There is a cent ral spinal stenosis at that level. No acute or pathologic bone process seen. IMPRESSION: Gallbladder wall thickening and edema present with pericholecystic fluid. Biliary tree i s prominent. Gallstones and duct stones can be occult on CT imaging. Correlation is needed with any a cute cholecystitis exam findings. Follow-up gallbladder sonography can be performed as clinically war ranted. The patient has an aortic aneurysm with dissection in the distal thoracic aorta continuing as a disse ction into the upper abdominal aorta, terminating just below the renal vasculature. The thoracic portion of the dissection is only partially imaged. An endovascular stent is in place. F alse lumen is opacified by contrast down to the termination point. No comparison is available for the aortic findings. It is believed the aortic dissection findings are most likely chronic. Patient has an infrarenal abdominal aortic aneurysm 4.9 cm AP x 4.8 cm TR. Large amount of mural thro mbus is present filling the majority of the aneurysm lumen. Mildly prominent small bowel loops are present and could indicate a nonspecific enteritis. Cirrhotic liver changes with no focal suspicious liver lesion.
[2022-04-10] MEDS ORDERED: NA CHLORIDE 0.9% 100 ML IV ONE (13:15)
[2022-04-10] MEDS ORDERED: NA CHLORIDE 0.9% 1,000 ML ONE (13:15)
[2022-04-10] MEDS ORDERED: PIPERACIL/TAZO 3.375 GM VIAL IV ONE (13:16)
--- NOTE | 2022-04-10 13:49 | RAD REPORT ---
EXAM DESCRIPTION: US - Abdomen Exam Limited - 04/10/2022 1:26 pm CLINICAL HISTORY: ABD PAIN COMPARISON: Abdomen Pelvis W Contrast dated 04/10/2022 FINDINGS: The gallbladder wall is thickened. No stones are identified. Gallbladder wall measures 5 m illimeters. The common bile duct measures 7 millimeters and is mildly dilated. The sonographic Funk sign was negative. Coarsened echotexture of the liver consistent with cirrhosis. IMPRESSION: Nonspecific gallbladder wall thickening and mild common common bile duct dilatation whic h are nonspecific. Negative for cholelithiasis or specific sonographic findings to suggest acute chol ecystitis. The findings could be related to underlying liver disease.
[2022-04-10 14:14] LABS: SARS-CoV-2 Antigen Rapid Res Negative (Negative)
[2022-04-10] MEDS ORDERED: ONDANSETRON 4 MG/2 ML VIAL ONE (14:21)
--- NOTE | 2022-04-10 14:22 | EDPHYS ---
Physician Documentation [facility] Name: Shade Clements Age: 62 yrs Sex: Male : 1960 Arrival Date: 04/10/2022 Time: 10:32 Bed 10 Private MD: ED Physician Nunu Allred HPI: 04/10 14:18 This 62 yrs old Male presents to ER via EMS with complaints of abd pain. kb 14:18 The patient presents with abdominal pain in the lower abdomen. Onset: The kb symptoms/episode began/occurred 9 day(s) ago. The symptoms do not radiate. Associated signs and symptoms: Pertinent positives: nausea, vomiting, cough. The symptoms are described as constant. Modifying factors: The symptoms are alleviated by nothing, the symptoms are aggravated by nothing. Severity of pain: At its worst the pain was moderate in the emergency department the pain is unchanged. The patient has experienced similar episodes in the past, chronically. The patient has been recently seen by a physician:. Pt reports lower abd pain, nausea and vomiting for 9 days. Reports he always has abd pain, but it has been worse over the last 9 days. Was seen at [facility] and diagnosed with a viral illness, given codeine which made him feel worse. 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 - Social history:: Smoking status: Patient reports the use of cigarette tobacco products, smokes one-half pack cigarettes per day. ROS: 14:18 Constitutional: Negative for fever, chills, and weight loss. kb 14:18 Respiratory: Positive for cough, Negative for dyspnea on exertion, hemoptysis, orthopnea, pleurisy, shortness of breath, sputum production, wheezing. 14:18 Abdomen/GI: Positive for abdominal pain, nausea and vomiting, Negative for diarrhea, constipation. 14:18 All other systems are negative. Exam: 14:18 Constitutional: This is a well developed, well nourished patient who is awake, alert, kb and in no acute distress. Head/Face: Normocephalic, atraumatic. ENT: Moist Mucous membranes Cardiovascular: Regular rate and rhythm with a normal S1 and S2. No gallops, murmurs, or rubs. No pulse deficits. Respiratory: Respirations even and unlabored. No increased work of breathing. Talking in full sentences Skin: Warm, dry with normal turgor. Normal color. MS/ Extremity: Pulses equal, no cyanosis. Neurovascular intact. Full, normal range of motion. Neuro: Awake and alert, GCS 15, oriented to person, place, time, and situation. Moves all extremities. Normal gait. Psych: Awake, alert, with orientation to person, place and time. Behavior, mood, and affect are within normal limits. 14:18 Abdomen/GI: Inspection: abdomen appears normal, Bowel sounds: normal, Palpation: soft, in all quadrants, mild abdominal tenderness, in the right lower quadrant and left lower quadrant. Vital Signs: 10:38 BP 132 / 83; Pulse 79; Resp 18; Temp 98.5; Pulse Ox 96% on R/A; Weight 97.07 kg; Height kr3 5 ft. 11 in. (180.34 cm); 11:45 BP 124 / 75; Pulse 71; Resp 17; Pulse Ox 98% on R/A; kr3 12:46 BP 116 / 71; Pulse 68; Resp 18; Pulse Ox 98% on R/A; kr3 14:15 BP 120 / 71; Pulse 63; Resp 17; Pulse Ox 99% on R/A; kr3 15:11 BP 118 / 74; Pulse 71; Resp 18; Pulse Ox 97% on R/A; kr3 10:38 Body Mass Index 29.85 (97.07 kg, 180.34 cm) kr3 MDM: 10:32 Patient medically screened. kb 14:13 Data reviewed: vital signs, nurses notes. Data interpreted: Pulse oximetry: on room air kb is 98 %. Interpretation: normal. 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 Agrees with outpatient follow up. Discussed findings with patient and plan for outpatient follow up. Patient in agreement. Cholecystitis excluded by US and physical exam. Vascular findings appear chronic on CT scan. Pt educated on return precautions. . 04/10 10:32 Order name: CBC with Diff; Complete Time: 11:15 kb 04/10 10:32 Order name: CMP; Complete Time: 11:25 kb 04/10 10:32 Order name: Lipase; Complete Time: 11:25 kb 04/10 10:32 Order name: CT Abd/Pelvis - IV Contrast Only; Complete Time: 12:13 kb 04/10 12:52 Order name: SARS RAPID; Complete Time: 14:22 kb 04/10 13:02 Order name: US Abdomen Limited; Complete Time: 13:55 kb 04/10 10:32 Order name: IV Saline Lock; Complete Time: 10:58 kb 04/10 10:32 Order name: Labs collected and sent; Complete Time: 10:58 kb Administered Medications: 12:02 Drug: fentaNYL (PF) 25 mcg Route: IVP; Site: right antecubital; kr3 15:16 Follow up: Response: No adverse reaction; RASS: Alert and Calm (0) kr3 13:47 Drug: Zosyn (piperacillin-tazobactam) 3.375 grams Route: IVPB; Infused Over: 60 mins; kr3 Site: right antecubital; 15:15 Follow up: Response: No adverse reaction; IV Status: Completed infusion; IV Intake: kr3 100ml 13:47 Drug: NS 0.9% 1000 ml Route: IV; Rate: 75 ml/hr; Site: right antecubital; kr3 15:14 Follow up: Response: No adverse reaction; IV Status: IV converted to saline lock; IV kr3 Intake: 250ml 15:06 Drug: fentaNYL (PF) 25 mcg Route: IVP; Site: right antecubital; kr3 15:14 Follow up: Response: No adverse reaction; RASS: Alert and Calm (0) kr3 15:06 Drug: Zofran (Ondansetron) 4 mg Route: IVP; Site: right antecubital; kr3 15:13 Follow up: Response: No adverse reaction kr3 Disposition Summary: 04/10/22 14:21 Discharge Ordered Location: Home kb Condition: Stable kb Diagnosis - Lower abdominal pain, unspecified kb Followup: kb - With: Emergency Department - When: As needed - Reason: Worsening of condition Followup: kb - With: Private Physician - When: 2 - 3 days - Reason: Recheck today's complaints, Continuance of care, Re-evaluation by your physician Discharge Instructions: - Discharge Summary Sheet kb - Abdominal Pain, Adult, [id number] kb Forms: - Medication Reconciliation Form kb - Thank You Letter kb - Antibiotic Education kb - Prescription Opioid Use kb Prescriptions: - Zofran 4 mg Oral Tablet - take 1 tablet by ORAL route every 6 hours As needed; 10 tablet; Refills: 0, kb Product Selection Permitted Signatures: Dispatcher [employer] EDMS Buffy Molina, CEMENT MASON-C CEMENT MASON-CkAylin Roman RN RN kr3 Corrections: (The following items were deleted from the chart) 14:21 14:13 Counseling: I had a detailed discussion with the patient and/or guardian ray regarding: the historical points, exam findings, and any diagnostic results supporting the discharge/admit diagnosis, lab results, radiology results, the need for outpatient follow up, 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 Agrees with outpatient follow up. Discussed findings with patient and plan for outpatient follow up. Patient in agreement. Cholecystitis excluded by US and physical exam. Vascular findings appear chronic on CT scan. Pt educated on return precautions. , kb
--- NOTE | 2022-04-10 14:22 | ER ---
Nurse's Notes [facility] Name: Shade Clements Age: 62 yrs Sex: Male : 1960 Arrival Date: 04/10/2022 Time: 10:32 Bed 10 Private MD: Diagnosis: Lower abdominal pain, unspecified Presentation: 04/10 10:38 Chief complaint: Patient states: bilateral lower quadrant abdominal pain that started 9 kr3 days ago. Coronavirus screen: Vaccine status: Patient reports receiving the 2nd dose of the covid vaccine. Client denies travel out of the [place] in the last 14 days. Ebola Screen: Patient denies travel to an Ebola-affected area in the 21 days before illness onset. Initial Sepsis Screen: Does the patient meet any 2 criteria? No. Patient's initial sepsis screen is negative. Does the patient have a suspected source of infection? No. Patient's initial sepsis screen is negative. Risk Assessment: Do you want to hurt yourself or someone else? Patient reports no desire to harm self or others. Onset of symptoms was April 01, 2022. 10:38 Method Of Arrival: EMS kr3 10:38 Acuity: NENA 3 kr3 Triage Assessment: 10:45 General: Appears distressed, uncomfortable, Behavior is calm, cooperative, appropriate kr3 for age. Pain: Complains of pain in right lower quadrant and left lower quadrant. 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 - Social history:: Smoking status: Patient reports the use of cigarette tobacco products, smokes one-half pack cigarettes per day. Screenin:12 Abuse screen: Denies threats or abuse. Nutritional screening: No deficits noted. kr3 Tuberculosis screening: No symptoms or risk factors identified. Fall Risk IV access (20 points). Total Giles Fall Scale indicates No Risk (0-24 pts). Assessment: 11:44 General: Appears in no apparent distress. uncomfortable, Behavior is cooperative, kr3 appropriate for age, restless. 12:41 Reassessment: No changes from previously documented assessment. Patient and/or family kr3 updated on plan of care and expected duration. Pain level reassessed. Patient is alert, oriented x 3, equal unlabored respirations, skin warm/dry/pink. 14:18 Reassessment: No changes from previously documented assessment. Patient and/or family kr3 updated on plan of care and expected duration. Pain level reassessed. Patient is alert, oriented x 3, equal unlabored respirations, skin warm/dry/pink. 15:10 Reassessment: No changes from previously documented assessment. Patient and/or family kr3 updated on plan of care and expected duration. Pain level reassessed. Patient is alert, oriented x 3, equal unlabored respirations, skin warm/dry/pink. Vital Signs: 10:38 BP 132 / 83; Pulse 79; Resp 18; Temp 98.5; Pulse Ox 96% on R/A; Weight 97.07 kg; Height kr3 5 ft. 11 in. (180.34 cm); 11:45 BP 124 / 75; Pulse 71; Resp 17; Pulse Ox 98% on R/A; kr3 12:46 BP 116 / 71; Pulse 68; Resp 18; Pulse Ox 98% on R/A; kr3 14:15 BP 120 / 71; Pulse 63; Resp 17; Pulse Ox 99% on R/A; kr3 15:11 BP 118 / 74; Pulse 71; Resp 18; Pulse Ox 97% on R/A; kr3 10:38 Body Mass Index 29.85 (97.07 kg, 180.34 cm) kr3 ED Course: 10:32 Patient arrived in ED. kb 10:32 Buffy Molina FNP-C [facility]. kb 10:32 Nunu Allred MD is Attending Physician. kb 10:41 Triage completed. kr3 10:45 Inserted saline lock: 20 gauge in right antecubital area, using aseptic technique. kr3 Blood collected. 10:46 Arm band placed on left wrist. Patient placed in an exam room, on a stretcher. kr3 10:53 Aylin Posada RN is Primary Nurse. kr3 11:00 Bed in low position. Call light in reach. Side rails up X 1. kr3 11:38 CT Abd/Pelvis - IV Contrast Only In Process Unspecified. EDMS 13:27 US Abdomen Limited In Process Unspecified. EDMS 13:48 SARS RAPID Sent. kr3 15:12 No provider procedures requiring assistance completed. IV discontinued, intact, kr3 bleeding controlled, No redness/swelling at site. Pressure dressing applied. Administered Medications: 12:02 Drug: fentaNYL (PF) 25 mcg Route: IVP; Site: right antecubital; kr3 15:16 Follow up: Response: No adverse reaction; RASS: Alert and Calm (0) kr3 13:47 Drug: Zosyn (piperacillin-tazobactam) 3.375 grams Route: IVPB; Infused Over: 60 mins; kr3 Site: right antecubital; 15:15 Follow up: Response: No adverse reaction; IV Status: Completed infusion; IV Intake: kr3 100ml 13:47 Drug: NS 0.9% 1000 ml Route: IV; Rate: 75 ml/hr; Site: right antecubital; kr3 15:14 Follow up: Response: No adverse reaction; IV Status: IV converted to saline lock; IV kr3 Intake: 250ml 15:06 Drug: fentaNYL (PF) 25 mcg Route: IVP; Site: right antecubital; kr3 15:14 Follow up: Response: No adverse reaction; RASS: Alert and Calm (0) kr3 15:06 Drug: Zofran (Ondansetron) 4 mg Route: IVP; Site: right antecubital; kr3 15:13 Follow up: Response: No adverse reaction kr3 Medication: 15:13 VIS not applicable for this client. kr3 Intake: 15:14 IV: 250ml; Total: 250ml. kr3 15:15 IV: 100ml; Total: 350ml. kr3 Outcome: 14:21 Discharge ordered by MD. bell 15:12 Discharged to home ambulatory. kr3 15:12 Condition: stable 15:12 Discharge instructions given to patient, Instructed on discharge instructions, follow up and referral plans. medication usage, Demonstrated understanding of instructions, follow-up care, medications, Prescriptions given X 1. 15:23 Patient left the ED. kr3 Signatures: Dispatcher [employer] EDMS Buffy Molina, HEALTH TEACHER-C HEALTH TEACHER-Aylin Leung RN RN kr3
[2022-04-10 16:14] VITALS: TEMP 98.5
[2022-04-10 16:19] VITALS: BP 118/74; O2SAT 97
== END 2022-04-10 15:23 | disposition home or self-care (01) ==
LOC: ER 10:30
DX: R10.30 Lower abdominal pain, unspecified (principal); R11.2 Nausea with vomiting, unspecified; F17.210 Nicotine dependence, cigarettes, uncomplicated; Z20.822 Contact with and (suspected) exposure to COVID-19; Z88.5 Allergy status to narcotic agent
CPT/HCPCS: 85025; 36415; 83690; 80053; 74177; 76705; 87811; Q9967; J2543; J3010 ×2; J7030; J2405; 96365; 96375; 99284